=== PATIENT | male | born 1950 | race Caucasian/White ===

== ENCOUNTER → 2017-09-06 15:20 | Outpatient (CLI) | payer MEDICARE, SELFPAY ==
--- NOTE | 2017-09-06 15:23 | XR_ITS ---
XR chest 2V Ordering Physician: Manav Jett MD Patient Age: 66 years: Male HISTORY: ITS.REASON: CHEST PAIN TECHNIQUE: PA and lateral chest pain COMPARISON :Previous 2 view chest 09/05/2012 FINDINGS No significant interval change. Lungs clear with no active disease. No pneumothorax. No pleural effusion. Subtle small nodular densities project over left 6TH anterior rib and most likely nipple shadow is been seen before Mild cardiomegaly left ventricular configuration . Normal pulmonary vascularity. Previous sternotomy and CABG IMPRESSION: Stable chest nothing definitely acute Lungs clear Sternotomy, CABG. Borderline/mild cardiomegaly
== END ==
PROVIDERS: PCP Internal Medicine Adolescent Medicine; Visit Provider Internal Medicine
DX: I10 Essential (primary) hypertension (principal); Z95.1 Presence of aortocoronary bypass graft; Z87.891 Personal history of nicotine dependence; E78.5 Hyperlipidemia, unspecified; R06.00 Dyspnea, unspecified; I27.20 Pulmonary hypertension, unspecified; I25.10 Atherosclerotic heart disease of native coronary artery without angina pectoris; E11.9 Type 2 diabetes mellitus without complications; G47.33 Obstructive sleep apnea (adult) (pediatric)
CPT/HCPCS: 71046

== ENCOUNTER → 2017-09-09 07:05 | Outpatient (CLI) | payer MEDICARE, SELFPAY ==
[2017-09-09 08:13] LABS: Anion Gap 11.8 mEq/L (5-15); Blood Urea Nitrogen 15 mg/dL (7-18); Carbon Dioxide 29 mmol/L (21.0-32.0); Chloride 101 mmol/L (98-107); Creatinine,Serum 1.16 mg/dL (0.70-1.30); Estimated Glomerular Filt Rate 63 ml/min (>60); GFR (African American) 76 ML/MIN (>60); Potassium 3.8 mmoL/L (3.5-5.1); Sodium 138 mmol/L (136-145)
[2017-09-09 08:27] LABS: Glucose 173 mg/dL (74-106)
[2017-09-09 08:29] LABS: Chol/HDL Ratio 3.5 (1-3.5); Cholesterol 174 mg/dL (140-200); HDL Cholesterol 50 mg/dL (27-67); LDL Cholesterol 109 mg/dL (0-130); Triglycerides 74 mg/dL (30-200); VLDL Cholesterol 15 mg/dL (0-40)
[2017-09-09 09:02] LABS: Hemoglobin A1C 7.4 % (0.0-7.0)
== END ==
PROVIDERS: Family Provider Internal Medicine Adolescent Medicine; PCP Internal Medicine Adolescent Medicine; Visit Provider Internal Medicine Cardiovascular Disease
DX: I27.20 Pulmonary hypertension, unspecified (principal); Z87.891 Personal history of nicotine dependence; Z95.1 Presence of aortocoronary bypass graft; I25.810 Atherosclerosis of coronary artery bypass graft(s) without angina pectoris; I10 Essential (primary) hypertension; R06.02 Shortness of breath; R06.00 Dyspnea, unspecified; R06.01 Orthopnea; E78.4 Other hyperlipidemia; G47.33 Obstructive sleep apnea (adult) (pediatric); E11.9 Type 2 diabetes mellitus without complications
CPT/HCPCS: 36415; 80048; 80061; 83036; 83880

== ENCOUNTER → 2017-09-20 13:29 | Outpatient (CLI) | payer MEDICARE, SELFPAY ==
--- NOTE | 2017-09-20 13:30 | CT_ITS ---
CT chest wo con HISTORY: Chest pain, shortness of breath, coronary artery disease ITS.REASON: dyspnea ORDERING PHYSICIAN: Manav Jett MD PATIENT AGE: 66 years Technique: Axial images obtained. Sagittal and coronal reformatted images are also generated and reviewed. All CT scans at the facility use one or more dose reduction, viz: automated exposure control; ma/kV adjustment per patient size (including targeted exams where dose is matched to indication; i.e. head); or iterative reconstruction technique. CONTRAST: None COMPARISON: None FINDINGS: There has been a prior median sternotomy with CABG. The heart size is normal. No evidence of pericardial effusion. No evidence of aortic aneurysm. Normal sized pulmonary arteries. Coronary artery calcifications are present. No mediastinal or hilar mass. There are scattered small nodes within the axilla and mediastinum not. There are mild atelectatic or fibrotic changes in the left upper lobe and lingula. No suspicious pulmonary nodules. No lobar consolidation or collapse. No effusions. Upper abdominal images show fatty liver infiltration. There are scattered punctate calcifications of the pancreas consistent with chronic pancreatitis. No acute bony abnormalities. IMPRESSION: 1. Prior CABG with coronary artery disease. 2. Mild atelectatic or fibrotic changes in the left upper lobe and lingula. 3. Chronic pancreatitis with fatty liver
--- NOTE | 2017-09-20 13:42 | CA_ITS ---
PROCEDURE: 2-D M-mode and color Doppler study INDICATIONS FOR THE TEST: Chest pain + COPD Heart Murmur Tobacco Smoking Palpitations Fatigue Syncope Edema Hypertension+Diabetes Mellitus+ Rheumatic Fever SOB+PRO+Obesity Hyperlipidemia+ Family History HD Additional History CAD, ABN EKG, LEXUS, CABG PATIENT INFORMATION HEIGHT: 69 WEIGHT:226 GENDER: Male B/P:142/78 2-D/M-MODE INTERPRETATION: 2-D MEASUREMENTS OBSERVED VALUES IN CMS Right Ventricular Dimension (RVDd) 3.2 Interventricular Septum (Thickness)(IVsd) 1.5 Left Ventricular Internal Dimensions(LVIDd) 5.7 Left Ventricular Posterior Wall (Thickness)(LVPWd) 0.9 Aortic Root 3.4 Aortic Cusp Separation 1.7 Left Atrial Dimensions (LAD) 5.3 2D 1. Left atrium is moderately enlarged, left ventricle is normal size, visually estimated ejection fraction 55% with no obvious regional wall motion abnormality. 2. The right atrium and right ventricle are normal size and contractility 3. The aortic valve is minimally thickened and fibrosed. 4. The mitral and tricuspid valve leaflets are minimally thickened. 5. The pulmonic valve is poorly visualized. 6. No significant pericardial effusion noted. DOPPLER INTERROGATION: Doppler interrogation of the aortic, mitral and tricuspid valvular presence of mild mitral and tricuspid regurgitation, tricuspid regurgitant jet velocity is insufficient for calculation of the right ventricular systolic pressure, grade 1 diastolic dysfunction seen with tissue Doppler evidence of raised left atrial pressure. CONCLUSION: 1. Moderately enlarged left atrium, normal left ventricular size, mild concentric left ventricular hypertrophy, visually estimated ejection fraction 55% with no obvious regional wall motion abnormality. Grade 1 diastolic dysfunction seen with tissue Doppler evidence of raised left atrial pressure. 2. Mild mitral and tricuspid addition 3. No significant pericardial effusion noted.
== END ==
PROVIDERS: Family Provider Internal Medicine Adolescent Medicine; PCP Internal Medicine Adolescent Medicine; Visit Provider Internal Medicine
DX: G47.33 Obstructive sleep apnea (adult) (pediatric) (principal); I27.20 Pulmonary hypertension, unspecified; Z87.891 Personal history of nicotine dependence; Z95.1 Presence of aortocoronary bypass graft; I25.810 Atherosclerosis of coronary artery bypass graft(s) without angina pectoris; I10 Essential (primary) hypertension; E78.4 Other hyperlipidemia; R06.02 Shortness of breath; R06.00 Dyspnea, unspecified; R06.01 Orthopnea; E11.9 Type 2 diabetes mellitus without complications
CPT/HCPCS: 71250; 93306

== ENCOUNTER → 2017-10-06 05:55 | Outpatient (CLI) | payer MEDICARE, SELFPAY ==
--- NOTE | 2017-10-06 05:57 | NM_ITS ---
SPECT MYOCARDIAL PERFUSION SCAN, REST AND STRESS: EXERCISE STRESS: [facility] REVIEW QGS EF AND WALL MOTION EVALUATION: QPS - PERFUSION EVALUATION: HISTORY: SOB PROCEDURE: Rest imaging performed after administration of 10.17 millicuries Tc MIBI. Dose administered at6:10 a.m., with imaging thereafter. Stress imaging was then performed following8 minutes 30 seconds of exercise stress. The patient achieved a heart [id number] with projected heart rate of131 . Resting BP161/89 with stress 180/92. At maximum exercise stress,30.2 millicuries Tc MIBI administered at7:50 a.m. with [id number] minutes thereafter. FINDINGS: Perfusion Evaluation: The single slice spect images as well as the [facility] bull's-eye data summary were reviewed. Wall Motion and Ejection Fraction Evaluation: Gated SPECT review and analysis used to evaluate these features. There is a 56 % left ventricular ejection fraction. There seems to be good wall motion Stress images reveal decreased activity in the mid anterior apical wall while rest images were normal ejection fraction. Gated images calculated ejection fraction of 56% with normal wall motion IMPRESSION: Reversible ischemia in the mid anterior apical wall. Normal ejection fraction normal wall motion.
[2017-10-06 06:21] LABS: Anion Gap 11.2 mEq/L (5-15); Blood Urea Nitrogen 18 mg/dL (7-18); Carbon Dioxide 31 mmol/L (21.0-32.0); Chloride 99 mmol/L (98-107); Creatinine,Serum 1.14 mg/dL (0.70-1.30); Estimated Glomerular Filt Rate 64 ml/min (>60); GFR (African American) 78 ML/MIN (>60); Glucose 155 mg/dL (74-106); Potassium 4.2 mmoL/L (3.5-5.1); Sodium 137 mmol/L (136-145)
--- NOTE | 2017-10-06 06:44 | HMH.ITSHM ---
METFORMIN LISINOPRIL CARVEDILOL FENOFIBRATE SILDENAFIL ASA PRILOSEC
== END ==
PROVIDERS: Internal Medicine Cardiovascular Disease; Family Provider Internal Medicine Adolescent Medicine; PCP Internal Medicine Adolescent Medicine; Visit Provider Internal Medicine
DX: G47.33 Obstructive sleep apnea (adult) (pediatric) (principal); E11.9 Type 2 diabetes mellitus without complications; I25.10 Atherosclerotic heart disease of native coronary artery without angina pectoris; I27.20 Pulmonary hypertension, unspecified; R06.00 Dyspnea, unspecified; E78.5 Hyperlipidemia, unspecified; Z87.891 Personal history of nicotine dependence; I10 Essential (primary) hypertension; Z95.1 Presence of aortocoronary bypass graft
CPT/HCPCS: 78452; 80048; 93017; A9502

== ENCOUNTER → 2017-10-19 07:40 | Outpatient (CLI) | payer MEDICARE, SELFPAY ==
[2017-10-19 09:34] LABS: Anion Gap 13.9 mEq/L (5-15); Blood Urea Nitrogen 18 mg/dL (7-18); Carbon Dioxide 30 mmol/L (21.0-32.0); Chloride 90 mmol/L (98-107); Creatinine,Serum 1.16 mg/dL (0.70-1.30); Estimated Glomerular Filt Rate 63 ml/min (>60); GFR (African American) 76 ML/MIN (>60); Sodium 130 mmol/L (136-145)
[2017-10-19 10:07] LABS: Glucose 240 mg/dL (74-106)
[2017-10-19 10:08] LABS: Potassium 3.9 mmoL/L (3.5-5.1)
== END ==
PROVIDERS: Urology; PCP Internal Medicine Adolescent Medicine; Visit Provider Internal Medicine Cardiovascular Disease
DX: E78.5 Hyperlipidemia, unspecified (principal); E11.9 Type 2 diabetes mellitus without complications; I10 Essential (primary) hypertension; I25.10 Atherosclerotic heart disease of native coronary artery without angina pectoris; I27.20 Pulmonary hypertension, unspecified; R06.00 Dyspnea, unspecified
CPT/HCPCS: 36415; 80048

== ENCOUNTER → 2017-10-29 07:06 | Outpatient (CLI) | payer MEDICARE, SELFPAY ==
[2017-10-29 09:52] LABS: Anion Gap 17.1 mEq/L (5-15); Blood Urea Nitrogen 19 mg/dL (7-18); Carbon Dioxide 24 mmol/L (21.0-32.0); Chloride 103 mmol/L (98-107); Estimated Glomerular Filt Rate 61 ml/min (>60); GFR (African American) 73 ML/MIN (>60); Potassium 4.1 mmoL/L (3.5-5.1); Sodium 140 mmol/L (136-145)
[2017-10-29 10:12] LABS: Glucose 196 mg/dL (74-106)
== END ==
PROVIDERS: Visit Provider Internal Medicine Cardiovascular Disease
DX: R06.09 Other forms of dyspnea (principal); I50.32 Chronic diastolic (congestive) heart failure
CPT/HCPCS: 36415; 80048; 83880

== ENCOUNTER → 2017-11-23 07:07 | Outpatient (CLI) | payer MEDICARE, SELFPAY ==
[2017-11-23 10:45] LABS: Anion Gap 14.3 mEq/L (5-15); Blood Urea Nitrogen 23 mg/dL (7-18); Carbon Dioxide 29 mmol/L (21.0-32.0); Chloride 100 mmol/L (98-107); Creatinine,Serum 1.29 mg/dL (0.70-1.30); Estimated Glomerular Filt Rate 56 ml/min (>60); GFR (African American) 67 ML/MIN (>60); Glucose 296 mg/dL (74-106); Potassium 4.3 mmoL/L (3.5-5.1); Sodium 139 mmol/L (136-145)
== END ==
PROVIDERS: Family Provider Internal Medicine Adolescent Medicine; PCP Internal Medicine Adolescent Medicine; Visit Provider Internal Medicine Cardiovascular Disease
DX: R06.09 Other forms of dyspnea (principal); I27.20 Pulmonary hypertension, unspecified; I25.810 Atherosclerosis of coronary artery bypass graft(s) without angina pectoris; I10 Essential (primary) hypertension; E78.4 Other hyperlipidemia
CPT/HCPCS: 36415; 80048; 83880

== ENCOUNTER → 2017-12-03 07:09 | Outpatient (CLI) | payer MEDICARE, SELFPAY ==
[2017-12-03 10:10] LABS: Anion Gap 14.5 mEq/L (5-15); Blood Urea Nitrogen 26 mg/dL (7-18); Calcium 9.9 mg/dL (8.5-10.1); Carbon Dioxide 30 mmol/L (21.0-32.0); Chloride 101 mmol/L (98-107); Creatinine,Serum 1.41 mg/dL (0.70-1.30); Estimated Glomerular Filt Rate 50 ml/min (>60); GFR (African American) 61 ML/MIN (>60); Potassium 4.5 mmoL/L (3.5-5.1); Sodium 141 mmol/L (136-145)
[2017-12-03 10:33] LABS: Glucose 287 mg/dL (74-106)
== END ==
PROVIDERS: Family Provider Internal Medicine Adolescent Medicine; PCP Internal Medicine Adolescent Medicine; Visit Provider Urology
DX: R06.09 Other forms of dyspnea (principal); I27.20 Pulmonary hypertension, unspecified; I25.810 Atherosclerosis of coronary artery bypass graft(s) without angina pectoris; I10 Essential (primary) hypertension; E78.4 Other hyperlipidemia
CPT/HCPCS: 36415; 80048; 83880

== ENCOUNTER → 2017-12-16 07:04 | Outpatient (CLI) | payer MEDICARE, SELFPAY ==
[2017-12-16 08:27] LABS: Anion Gap 12.5 mEq/L (5-15); Blood Urea Nitrogen 20 mg/dL (7-18); Calcium 9.7 mg/dL (8.5-10.1); Carbon Dioxide 29 mmol/L (21.0-32.0); Chloride 98 mmol/L (98-107); Creatinine,Serum 1.16 mg/dL (0.70-1.30); Estimated Glomerular Filt Rate 63 ml/min (>60); GFR (African American) 76 ML/MIN (>60); Potassium 4.5 mmoL/L (3.5-5.1); Sodium 135 mmol/L (136-145)
[2017-12-16 08:56] LABS: Glucose 357 mg/dL (74-106)
[2017-12-16 09:13] LABS: Hemoglobin A1C 9.8 % (0.0-7.0)
[2017-12-17 20:07] LABS: Microalbumin, Urine 9.7 ug/mL (Not Estab.)
== END ==
PROVIDERS: Nurse Practitioner Family; Visit Provider Internal Medicine Cardiovascular Disease
DX: I25.10 Atherosclerotic heart disease of native coronary artery without angina pectoris (principal); I10 Essential (primary) hypertension; I50.9 Heart failure, unspecified; E78.5 Hyperlipidemia, unspecified; E11.9 Type 2 diabetes mellitus without complications
CPT/HCPCS: 36415; 80048; 82043; 83036; 83880

== ENCOUNTER 2018-04-14 16:00 | Outpatient (RCR) | payer MEDICARE, SELFPAY ==
--- NOTE | 2018-04-07 16:14 | HMH.PTOPEV ---
PT Outpatient Evaluation Rehab PT Outpatient Evaluation Start: 04/07/18 15:49 Freq: Status: Active Protocol: Document 04/07/18 15:49 LESVIARODOLFO (Rec: 04/07/18 16:14 LESVIARODOLFO [id number]) Electronically Signed By Skip Watters, PT 04/07/18 15:49 Outpatient Therapy Subjective History Subjective History This is the initial Physical Therapy evaluation for Arnold Mann. Pt is a 67 y/o male referred to PT for c/o BLE and SIJ intermittant pain. PT reports pain for a while but increased over last few months . Pt reports no trauma or causative factor. Pt reports pain mostly in post SIJ, but does reprot c/o paresthesia in BLE during motorcycle rides and prolonged sitting causes severe stiffness w/ rising. Chief Complaint Pain Stiff Paresthesia Symptom Type Ache Throb Sharp Dull Numbness Symptoms Relieved By Rest/Positioning OTC Meds Activity Symptoms Aggravated By Sitting Prior Functional Limitations None Current Functional Limitations Sitting Recreation Activity Symptom Description Intermittent Level of pain today (0-10) 0 Pain scale - at its best (0-10) 0 Pain scale - at its worst (0-10) 7 Lumbopelvic Eval Posture Thoracic Spine Posture Standing Position Neutral Lumbar Spine Posture Standing Position Flattened Assistive device Assistive Devices None / NA Gait Observation General Gait Pattern Observation No Deviations/Normal Palapation tenderness bilateral Lumbar/Sacral Palpation Findings Tenderness Lumbar/Sacral Palpation Overall Comment TTP at B PSIS and SIJ ligaments Range of Motion Lumbar Spine ROM Reason Not Measured Within Functional Limits Manual Muscle Test Bilateral Knee Extension Strength Grade 5 Normal Knee Flexion Strength Grade 5 Normal DTR Rt Patellar 1+ Lt Patellar 1+ Special Tests Lumbar Spine Screen Negative Sacroiliac Joint Compression Test Positive Left Positive Right Sacroiliac Joint Distraction Test Positive Left Positive Right Lumbar [place]
== END 2018-04-14 16:01 | disposition home or self-care (01) ==
LOC: PT 16:00
PROVIDERS: Family Provider Internal Medicine Adolescent Medicine; PCP Internal Medicine Adolescent Medicine; Visit Provider Nurse Practitioner Family
DX: M25.552 Pain in left hip (principal); M25.551 Pain in right hip
CPT/HCPCS: 97110; 97163

== ENCOUNTER → 2018-05-05 14:59 | Outpatient (CLI) | payer MEDICARE, SELFPAY ==
--- NOTE | 2018-05-05 15:05 | XR_ITS ---
XR hip LT 2-3V w/pelvis HISTORY: Left hip pain ITS.REASON: BILAT HIP AND LOW BACK PAIN ORDERING PHYSICIAN: Tawana Ramos PATIENT AGE: 67 years COMPARISON: None FINDINGS: No fracture or dislocation is evident. No significant degenerative change. No lytic or blastic change. Unremarkable soft tissues IMPRESSION: Negative hip
--- NOTE | 2018-05-05 15:05 | XR_ITS ---
XR hip RT 2-3V w/pelvis HISTORY: ITS.REASON: BILAT HIP AND LOW BACK PAIN ORDERING PHYSICIAN: Tawana Ramos PATIENT AGE: 67 years COMPARISON: None FINDINGS: No fracture or dislocation is evident. No significant degenerative change. No lytic or blastic change. Unremarkable soft tissues IMPRESSION: Negative hip
--- NOTE | 2018-05-05 15:05 | XR_ITS ---
XR sacroiliac joint BI min 3V CLINICAL INDICATION: ITS.REASON: BILAT HIP AND LOW BACK PAIN ORDERING PHYSICIAN: Tawana Ramos PATIENT AGE: 67 years Comparison: None FINDINGS: There are minimal osteoarthritic changes of the right SI joint inferiorly. No fracture or dislocation. No sclerosis or lysis. There are prominent hypertrophic changes at the L5-S1 facets right greater than left. This may be better evaluated with CT. IMPRESSION: 1. 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 2. Hypertrophic changes of the lumbosacral junction
== END ==
PROVIDERS: PCP Nurse Practitioner Family; Visit Provider Nurse Practitioner Family
DX: M25.552 Pain in left hip (principal); M54.5 Low back pain; M25.551 Pain in right hip
CPT/HCPCS: 72202; 73502

== ENCOUNTER → 2018-05-23 13:56 | Outpatient (POV) | payer MEDICARE, SELFPAY ==
[2018-05-23 14:14] VITALS: BP 138/86; PULSE 68; RESP 18; O2SAT 98
--- NOTE | 2018-05-23 15:02 | HMH.PMCON ---
Assessment and Plan (1) Sacroiliitis Current visit: Yes Status: Chronic Category: Medical Code(s): M46.1 - Sacroiliitis, not elsewhere classified - Assessment and plan all Dx Assessment and Plan for all problems:: We will schedule bilateral SI joint injections for the patient I do believe it would be beneficial for him. Patient has tried and failed physical therapy, anti-inflammatories for over 6 weeks. I will follow-up with the patient after his injections. This note was dictated using voice recognition software and may contain errors or omissions HPI - Data of Consult Consult date: 05/23/18 Requesting Physician: Elo Vee APRN Primary Care Provider: Santino Carrillo MD - Consult Narrative Reason for consult: SI joint pain History of present illness: Mr. Mann is a 67 year old male who presents today for consultation in regards to his bilateral SI joint pain. Patient has had back surgery back in 1997. Patient has recently been seen by his primary care physician. Patient has pain over his bilateral SI joints radiating into his buttock at times. Patient rates his pain a 5 out of 10. Patient has tried ibuprofen and Tylenol however it is not beneficial. Patient has tried bracing with some moderate relief. Patient's tried and failed chiropractic therapy and continues in physical therapy with moderate relief. Patient states that work and standing for long periods of time make his pain worse while resting decreases his pain. CC: Elo Vee APRN [facility] History I have reviewed the patient's past medical history: Yes Medical History: Reports:: Coronary Artery Disease, Diabetes Mellitus Type 2, Hyperlipidemia, Hypertension Denies:: Cancer, Diabetes Mellitus Type 1, Internal Pacemaker, MRSA, Seizures Laterality Cases: Bilateral: Arthroscopy Shoulder Other Surgeries: Yes: CABG, Cardiac Catheterization, Other. No: Pacemaker Amputation: No Fractures: No - *Social History Smoking Status: Never smoker Tobacco Type: cigarettes Alcohol Intake: current Alcohol Intake Frequency:: a few times a week Substance Use Type: denies use Occupational Status: retired Housing: house Household Members: spouse - Psychiatric History Expresses thoughts of harming self/others: None Suicide Plan Description: No Plan *Family Hx:: Coronary Artery Disease, Hypertension, Hyperlipidemia, Heart Attack Review of Systems - Review of Systems ROS General: no recent weight change, no fever, no sleep disturbances Respiratory: no cough, no shortness of air, no recurring pulmonary infections Cardiovascular/Peripheral Vascular: No chest pain, No palpitations, no edema, no shortness of breath. Gastrointestinal: no incontinence, normal bowel movements reported Genitourinary: no incontinence Musculoskeletal: Back pain, SI joint pain bilaterally Psychiatric: normal mood/ affect Neurological: [denies weakness in extremities], [denies balance issues] Meds Home Medications Medication Instructions Recorded Confirmed Type aspirin 81 mg tablet,delayed 81 mg PO DAILY tab 09/01/17 04/07/18 History release fenofibrate nanocrystallized 145 145 mg PO DAILY tab 09/01/17 04/07/18 History mg tablet metformin 500 mg tablet 1,000 mg PO BID tab 09/01/17 04/07/18 History omeprazole magnesium 20 mg 20 mg PO DAILY tab 09/01/17 04/07/18 History tablet,delayed release loratadine 10 mg tablet 10 mg PO DAILY tab 09/02/17 04/07/18 History furosemide 40 mg tablet 60 mg PO DAILY tab 01/06/18 History semaglutide 0.25 mg or 0.5 mg (2 0.25 mg SQ QWEEK 04/07/18 04/07/18 History mg/1.5 mL) subcutaneous pen injector Allergies Allergy/AdvReac Type Severity Reaction Status Date / Time Dlujbqs-Fqm-Fij Reductase Allergy Mild HURTS LIVER Unverified 11/05/17 09:42 Inhibitor [[id number] REDUCTASE INHIBITOR] Objective Vital signs: Pulse Resp BP Pulse Ox 68 18 138/86 98 11
--- NOTE | 2018-05-23 15:05 | P.CONS_ITS ---
Assessment and Plan (1) Sacroiliitis Current visit: Yes Status: Chronic Category: Medical Code(s): M46.1 - Sacroiliitis, not elsewhere classified - Assessment and plan all Dx Assessment and Plan for all problems:: We will schedule bilateral SI joint injections for the patient I do believe it would be beneficial for him. Patient has tried and failed physical therapy, anti-inflammatories for over 6 weeks. I will follow-up with the patient after his injections. This note was dictated using voice recognition software and may contain errors or omissions HPI - Data of Consult Consult date: 05/23/18 Requesting Physician: Elo Vee APRN Primary Care Provider: Santino Carrillo MD - Consult Narrative Reason for consult: SI joint pain History of present illness: Mr. Mann is a 67 year old male who presents today for consultation in regards to his bilateral SI joint pain. Patient has had back surgery back in 1997. Patient has recently been seen by his primary care physician. Patient has pain over his bilateral SI joints radiating into his buttock at times. Patient rates his pain a 5 out of 10. Patient has tried ibuprofen and Tylenol however it is not beneficial. Patient has tried bracing with some moderate relief. Patient's tried and failed chiropractic therapy and continues in physical therapy with moderate relief. Patient states that work and standing for long periods of time make his pain worse while resting decreases his pain. CC: Elo Vee APRN [facility] History I have reviewed the patient's past medical history: Yes Medical History: Reports:: Coronary Artery Disease, Diabetes Mellitus Type 2, Hyperlipidemia, Hypertension Denies:: Cancer, Diabetes Mellitus Type 1, Internal Pacemaker, MRSA, Seizures Laterality Cases: Bilateral: Arthroscopy Shoulder Other Surgeries: Yes: CABG, Cardiac Catheterization, Other. No: Pacemaker Amputation: No Fractures: No - *Social History Smoking Status: Never smoker Tobacco Type: cigarettes Alcohol Intake: current Alcohol Intake Frequency:: a few times a week Substance Use Type: denies use Occupational Status: retired Housing: house Household Members: spouse - Psychiatric History Expresses thoughts of harming self/others: None Suicide Plan Description: No Plan *Family Hx:: Coronary Artery Disease, Hypertension, Hyperlipidemia, Heart Attack Review of Systems - Review of Systems ROS General: no recent weight change, no fever, no sleep disturbances Respiratory: no cough, no shortness of air, no recurring pulmonary infections Cardiovascular/Peripheral Vascular: No chest pain, No palpitations, no edema, no shortness of breath. Gastrointestinal: no incontinence, normal bowel movements reported Genitourinary: no incontinence Musculoskeletal: Back pain, SI joint pain bilaterally Psychiatric: normal mood/ affect Neurological: [denies weakness in extremities], [denies balance issues] Meds Home Medications Medication Instructions Recorded Confirmed Type aspirin 81 mg tablet,delayed 81 mg PO DAILY tab 09/01/17 04/07/18 History release fenofibrate nanocrystallized 145 145 mg PO DAILY tab 09/01/17 04/07/18 History mg tablet metformin 500 mg tablet 1,000 mg PO BID tab 09/01/17 04/07/18 History omeprazole magnesium 20 mg 20 mg PO DAILY tab 09/01/17 04/07/18 History tablet,delayed release loratadine 10 mg tablet 10 mg PO DAILY tab 09/02/1703/28
== END ==
PROVIDERS: PCP Internal Medicine Adolescent Medicine; Visit Provider Clinical Nurse Specialist Family Health
DX: M46.1 Sacroiliitis, not elsewhere classified (principal)
CPT/HCPCS: 99202

== ENCOUNTER → 2018-07-04 14:40 | Outpatient (POV) | payer MEDICARE, SELFPAY ==
[2018-07-04 14:50] VITALS: BP 135/81; PULSE 61; RESP 18; O2SAT 99; BMI 31.0
--- NOTE | 2018-07-04 14:51 | P.CONS_ITS ---
[facility] Pain Management SOAP Note Subjective:: Patient is a pleasant 67-year-old white male who presents today for follow-up after bilateral SI joint injections. Patient is doing extremely well. Patient rates his pain a 2 out of 10. Patient would like to follow-up on an as-needed basis. ROS General: no recent weight change, no fever, no sleep disturbances Respiratory: no cough, no shortness of air, no recurring pulmonary infections Cardiovascular/Peripheral Vascular: No chest pain, No palpitations, no edema, no shortness of breath. Gastrointestinal: no incontinence, normal bowel movements reported Genitourinary: no incontinence Musculoskeletal: SI joint pain Psychiatric: normal mood/ affect Neurological: [denies weakness in extremities], [denies balance issues] Objective:: Physical Exam General: Alert and oriented x3, no acute distress, pleasant and cooperative, [on room air] Lungs: Resps E/U, Symmetrical chest expansion, Eyes: PERRL Musculoskeletal: Flexion and extension of lumbar spine somewhat guarded secondary to pain, deep tendon reflexes normal, strength in upper and lower extremities [5/5], antalgic gait noted, positive Anita's test bilaterally Neurological: speech clear, systems checkout mechanic equal, no gross sensory deficits Assessment:: Sacroiliitis Plan:: We will follow-up with the patient on an as-needed basis he is been instructed to call the office if his pain begins to return. This note was dictated using voice recognition software and may contain errors or omissions
== END ==
PROVIDERS: PCP Internal Medicine Adolescent Medicine; Visit Provider Clinical Nurse Specialist Family Health
DX: M46.1 Sacroiliitis, not elsewhere classified (principal)
CPT/HCPCS: 99213

== ENCOUNTER → 2018-08-09 09:58 | Outpatient (POV) | payer MEDICARE, SELFPAY ==
[2018-08-09 10:57] VITALS: BP 121/81; PULSE 72; RESP 18; O2SAT 98; BMI 31.0
--- NOTE | 2018-08-09 11:08 | HMH.PAINSOAP ---
[facility] Pain Management SOAP Note Subjective:: She is a pleasant 67-year-old white male who presents today for follow-up. Patient had bilateral SI joint injection and was doing extremely well until recently. Patient had a stress test which aggravated his symptoms. He is having low back pain radiating all the way into his foot of his right leg. He has numbness and tingling at this area as well. He rates his pain at 8 out of 10. He is on anti-inflammatories and continues daily stretching. ROS General: no recent weight change, no fever, no sleep disturbances Respiratory: no cough, no shortness of air, no recurring pulmonary infections Cardiovascular/Peripheral Vascular: No chest pain, No palpitations, no edema, no shortness of breath. Gastrointestinal: no incontinence, normal bowel movements reported Genitourinary: no incontinence Musculoskeletal: Back pain, leg pain Psychiatric: normal mood/ affect Neurological: [denies weakness in extremities], [denies balance issues] Objective:: Physical Exam General: Alert and oriented x3, no acute distress, pleasant and cooperative, [on room air] Lungs: Resps E/U, Symmetrical chest expansion, Eyes: PERRL Musculoskeletal: Flexion and extension of lumbar spine somewhat guarded secondary to pain, deep tendon reflexes normal, strength in upper and lower extremities [5/5], slightly antalgic gait noted, positive straight leg raise test on the right side at 30 degrees Neurological: speech clear, lamination assembler equal, no gross sensory deficits Assessment:: Degenerative disc disease lumbar spine with lumbar radiculopathy, postlaminectomy syndrome, sacroiliitis Plan:: We will schedule an L4-L5 lumbar epidural steroid injection for the patient. I do believe it would be beneficial for him. Patient's not on any blood thinners. He is not on any antibiotics and does not have any open wounds. I will follow-up with him after his injection. Dr. Carranza has reviewed this note and agrees with this plan of care. This note was dictated using voice recognition software and may contain errors or omissions
--- NOTE | 2018-08-09 11:14 | P.CONS_ITS ---
[facility] Pain Management SOAP Note Subjective:: She is a pleasant 67-year-old white male who presents today for follow-up. Patient had bilateral SI joint injection and was doing extremely well until recently. Patient had a stress test which aggravated his symptoms. He is having low back pain radiating all the way into his foot of his right leg. He has numbness and tingling at this area as well. He rates his pain at 8 out of 10. He is on anti-inflammatories and continues daily stretching. ROS General: no recent weight change, no fever, no sleep disturbances Respiratory: no cough, no shortness of air, no recurring pulmonary infections Cardiovascular/Peripheral Vascular: No chest pain, No palpitations, no edema, no shortness of breath. Gastrointestinal: no incontinence, normal bowel movements reported Genitourinary: no incontinence Musculoskeletal: Back pain, leg pain Psychiatric: normal mood/ affect Neurological: [denies weakness in extremities], [denies balance issues] Objective:: Physical Exam General: Alert and oriented x3, no acute distress, pleasant and cooperative, [on room air] Lungs: Resps E/U, Symmetrical chest expansion, Eyes: PERRL Musculoskeletal: Flexion and extension of lumbar spine somewhat guarded secondary to pain, deep tendon reflexes normal, strength in upper and lower extremities [5/5], slightly antalgic gait noted, positive straight leg raise test on the right side at 30 degrees Neurological: speech clear, central processing tech equal, no gross sensory deficits Assessment:: Degenerative disc disease lumbar spine with lumbar radiculopathy, postlaminectomy syndrome, sacroiliitis Plan:: We will schedule an L4-L5 lumbar epidural steroid injection for the patient. I do believe it would be beneficial for him. Patient's not on any blood thinners. He is not on any antibiotics and does not have any open wounds. I will follow-up with him after his injection. Dr. Carranza has reviewed this note and agrees with this plan of care. This note was dictated using voice recognition software and may contain errors or omissions
== END ==
PROVIDERS: PCP Internal Medicine Adolescent Medicine; Visit Provider Clinical Nurse Specialist Family Health
DX: M51.16 Intervertebral disc disorders with radiculopathy, lumbar region (principal); M96.1 Postlaminectomy syndrome, not elsewhere classified; M46.1 Sacroiliitis, not elsewhere classified
CPT/HCPCS: 99213

== ENCOUNTER → 2018-09-19 15:38 | Outpatient (POV) | payer MEDICARE, SELFPAY ==
[2018-09-19 15:50] VITALS: BP 127/72; PULSE 54; RESP 18; O2SAT 98; BMI 31.3
--- NOTE | 2018-09-20 08:03 | P.CONS_ITS ---
[facility] Pain Management SOAP Note Subjective:: Patient is a very pleasant 67-year-old white male who we are treating for low back pain with lumbar radiculopathy. Patient is doing well after his injection stating he got up to 90% relief of his symptoms. Patient states he is having some residual numbness after the injection. Patient would like to repeat the injection to see if he can get more relief at this point. I believe it would be a good idea. He is continuing home stretching along with anti-inflammatories. Patient has had good relief with injections in the past up to 80-90% for several months. ROS General: no recent weight change, no fever, no sleep disturbances Respiratory: no cough, no shortness of air, no recurring pulmonary infections Cardiovascular/Peripheral Vascular: No chest pain, No palpitations, no edema, no shortness of breath. Gastrointestinal: no incontinence, normal bowel movements reported Genitourinary: no incontinence Musculoskeletal: Back pain, leg pain at times Psychiatric: normal mood/ affect, Neurological: [denies weakness in extremities], [denies balance issues] numbness bilateral legs Objective:: Physical Exam General: Alert and oriented x3, no acute distress, pleasant and cooperative, [on room air] Lungs: Resps E/U, Symmetrical chest expansion, Eyes: PERRL Musculoskeletal: Flexion and extension of lumbar spine somewhat guarded secondary to pain, deep tendon reflexes normal, strength in upper and lower extremities [5/5], antalgic gait noted Neurological: speech clear, apparel trimmings sales representative equal, no gross sensory deficits Assessment:: Degenerative disc disease lumbar spine with lumbar radiculopathy Plan:: We will set up a repeat L4-L5 epidural steroid injection for the patient given the efficacy of the last 20 believe it would be beneficial. He is not on any anticoagulation therapy. I will follow-up with the patient after his injection and reassess his symptoms at that time. Dr. Carranza has reviewed this note and agrees with this plan of care. This note was dictated using voice recognition software and may contain errors or omissions
== END ==
PROVIDERS: PCP Internal Medicine Adolescent Medicine; Visit Provider Clinical Nurse Specialist Family Health
DX: M51.16 Intervertebral disc disorders with radiculopathy, lumbar region (principal)
CPT/HCPCS: 99213

== ENCOUNTER → 2018-10-24 13:23 | Outpatient (POV) | payer MEDICARE, SELFPAY ==
[2018-10-24 13:49] VITALS: BP 118/78; PULSE 60; RESP 18; O2SAT 98; BMI 31.7
--- NOTE | 2018-10-25 17:00 | HMH.PAINSOAP ---
[facility] Pain Management SOAP Note Subjective:: Is a very pleasant 68-year-old white male who presents today for follow-up after the epidural steroid injection he rates pain 1 out of 10 and is doing extremely well he would like to repeat this in a few weeks to help sustain this. Patient much more functional. He gets 90% relief up to 3 months. He is continuing a home stretching program he is currently not on any anti-coagulation therapy. He is on anti-inflammatories. ROS General: no recent weight change, no fever, no sleep disturbances Respiratory: no cough, no shortness of air, no recurring pulmonary infections Cardiovascular/Peripheral Vascular: No chest pain, No palpitations, no edema, no shortness of breath. Gastrointestinal: no incontinence, normal bowel movements reported Genitourinary: no incontinence Musculoskeletal: Back pain, leg pain Psychiatric: normal mood/ affect, Neurological: [denies weakness in extremities], [denies balance issues] Objective:: Physical Exam General: Alert and oriented x3, no acute distress, pleasant and cooperative, [on room air] Lungs: Resps E/U, Symmetrical chest expansion, Eyes: PERRL Musculoskeletal: Flexion and extension of lumbar spine somewhat guarded secondary to pain, deep tendon reflexes normal, strength in upper and lower extremities [5/5], antalgic gait noted Neurological: speech clear, voice writing reporter equal, no gross sensory deficits Assessment:: Degenerative disc disease lumbar spine with lumbar radiculopathy symptoms Plan:: We will schedule the patient for an L4-L5 lumbar epidural steroid injection in 2 months. I will follow-up with the patient after this reassess his symptoms at that time. Patient instructed to call the office if he has any issues prior to his next appointment. Dr. Carranza has reviewed this note and agrees with this plan of care. This note was dictated using voice recognition software and may contain errors or omissions
--- NOTE | 2018-10-25 17:03 | P.CONS_ITS ---
[facility] Pain Management SOAP Note Subjective:: Is a very pleasant 68-year-old white male who presents today for follow-up after the epidural steroid injection he rates pain 1 out of 10 and is doing extremely well he would like to repeat this in a few weeks to help sustain this. Patient much more functional. He gets 90% relief up to 3 months. He is continuing a home stretching program he is currently not on any anti-coagulation therapy. He is on anti-inflammatories. ROS General: no recent weight change, no fever, no sleep disturbances Respiratory: no cough, no shortness of air, no recurring pulmonary infections Cardiovascular/Peripheral Vascular: No chest pain, No palpitations, no edema, no shortness of breath. Gastrointestinal: no incontinence, normal bowel movements reported Genitourinary: no incontinence Musculoskeletal: Back pain, leg pain Psychiatric: normal mood/ affect, Neurological: [denies weakness in extremities], [denies balance issues] Objective:: Physical Exam General: Alert and oriented x3, no acute distress, pleasant and cooperative, [on room air] Lungs: Resps E/U, Symmetrical chest expansion, Eyes: PERRL Musculoskeletal: Flexion and extension of lumbar spine somewhat guarded secondary to pain, deep tendon reflexes normal, strength in upper and lower extremities [5/5], antalgic gait noted Neurological: speech clear, automatic grinding machine operator equal, no gross sensory deficits Assessment:: Degenerative disc disease lumbar spine with lumbar radiculopathy symptoms Plan:: We will schedule the patient for an L4-L5 lumbar epidural steroid injection in 2 months. I will follow-up with the patient after this reassess his symptoms at that time. Patient instructed to call the office if he has any issues prior to his next appointment. Dr. Carranza has reviewed this note and agrees with this plan of care. This note was dictated using voice recognition software and may contain errors or omissions
== END ==
PROVIDERS: PCP Internal Medicine Adolescent Medicine; Visit Provider Clinical Nurse Specialist Family Health
DX: M51.16 Intervertebral disc disorders with radiculopathy, lumbar region (principal)
CPT/HCPCS: 99212

== ENCOUNTER → 2018-12-26 14:11 | Outpatient (POV) | payer MEDICARE, SELFPAY ==
[2018-12-26 14:32] VITALS: BP 144/83; PULSE 64; RESP 18; O2SAT 98; BMI 31.0
--- NOTE | 2018-12-26 15:07 | P.CONS_ITS ---
[facility] Pain Management SOAP Note Subjective:: Patient is a pleasant 68-year-old white male who presents today for follow-up after a lumbar epidural steroid injection L4 and L5. Patient rates his pain an 8 out of 10 today. He says that he had about 20% relief after the injection. He is continuing to have low back pain radiating to his left leg. The patient is continuing physical therapy, along with NSAIDs. The patient says that he has started taking ibuprofen 800 mg, followed by 800 mg more 2 hours after. He says that this has given him some relief. He also states that his primary care provider has instructed him on decreasing his use of NSAIDs. The patient has tried other medication modalities in the past and has failed. He is continuing a home stretching program. Review of Systems General: No recent weight changes, no fever, no sleep disturbances Respiratory: No cough, no shortness of air, no recurring pulmonary infections Cardiovascular/peripheral vascular: No chest pain, no palpitations, no edema, no shortness of breath Gastrointestinal: No new onset incontinence, normal bowel movements reported Genitourinary: No new onset incontinence Musculoskeletal: Back pain, left leg pain Psychiatric: Normal mood/affect Neurological: [Denies weakness in extremities], [denies balance issues] Objective:: Physical exam General: Alert and oriented x3, no acute distress, pleasant and cooperative, [on room air] Lungs: Respirations even and unlabored, symmetrical chest expansion Eyes: PERRL Musculoskeletal: Flexion and extension of lumbar spine somewhat guarded secondary to pain, deep tendon reflexes normal, strength in upper and lower extremities [5/5], [abnormal gait noted] Neurological: Speech clear, ticket worker equal, no gross sensory deficit Assessment:: Degenerative disc disease lumbar spine with lumbar radiculopathy, CRPS type II Plan:: Given the patient's symptoms and no relief from injective therapy, I feel the patient would benefit from a spinal cord stimulator. Did have a thorough discussion concerning the stimulator and he would like to proceed with the psychological evaluation. We will schedule the patient for an evaluation and see him back the office after his evaluation is complete. She is not on any anticoagulation therapy. Been instructed to call the office if he has any concerns prior to his next appointment. Dr. Carranza has reviewed this note and agrees with this plan of care. This note was dictated using voice recognition software and make contain errors or omissions.
== END ==
PROVIDERS: PCP Nurse Practitioner Family; Visit Provider Clinical Nurse Specialist Family Health
DX: M51.16 Intervertebral disc disorders with radiculopathy, lumbar region (principal)
CPT/HCPCS: 99212

== ENCOUNTER → 2019-01-23 14:04 | Outpatient (POV) | payer MEDICARE, SELFPAY ==
[2019-01-23 14:11] VITALS: BP 119/70; PULSE 63; RESP 20; O2SAT 97; BMI 31.0
--- NOTE | 2019-01-23 14:38 | HMH.PAINSOAP ---
[facility] Pain Management SOAP Note Subjective:: Patient is a pleasant 68-year-old white male who presents today for follow-up after psychological evaluation to determine if he is a candidate for a neurostimulator. According to his psychological evaluation he is a good candidate for the therapy. He has had multiple injections with little to no relief. He is continuing to have low back pain radiating to his left legs. He is continuing physical therapy along with NSAIDs. Is also been doing home stretching programs as well. Patient has swelling in his bilateral lower extremities along with color changes. He rates his pain today an 8 out of 10. ROS General: no recent weight change, no fever, no sleep disturbances Respiratory: no cough, no shortness of air, no recurring pulmonary infections Cardiovascular/Peripheral Vascular: No chest pain, No palpitations, no edema, no shortness of breath. Gastrointestinal: no incontinence, normal bowel movements reported Genitourinary: no incontinence Musculoskeletal: Back pain, leg pain Psychiatric: normal mood/ affect Neurological: [denies weakness in extremities], [denies balance issues] Objective:: Physical Exam General: Alert and oriented x3, no acute distress, pleasant and cooperative, [on room air] Lungs: Resps E/U, Symmetrical chest expansion, Eyes: PERRL Musculoskeletal: Flexion and extension of lumbar spine somewhat guarded secondary to pain, deep tendon reflexes normal, strength in upper and lower extremities [5/5], antalgic gait noted Neurological: speech clear, lead systems engineer equal, no gross sensory deficits Assessment:: Degenerative disc disease lumbar spine with lumbar radiculopathy, CRPS type II Plan:: Given the patient's symptoms and no relief from injective therapy I feel the patient would benefit from a spinal cord stimulator he isin a great candidate according to psychological evaluation. We will schedule him for his trial reassess him during that time. He is not on any anticoagulation therapy. He is failed over 6 months of conservative treatment. Dr. Carranza has reviewed this note and agrees with this plan of care. This note was dictated using voice recognition software and may contain errors or omissions
--- NOTE | 2019-01-23 14:41 | P.CONS_ITS ---
[facility] Pain Management SOAP Note Subjective:: Patient is a pleasant 68-year-old white male who presents today for follow-up after psychological evaluation to determine if he is a candidate for a neurostimulator. According to his psychological evaluation he is a good candidate for the therapy. He has had multiple injections with little to no rel ief. He is continuing to have low back pain radiating to his left legs. He is continuing physical therapy along with NSAIDs. Is also been doing home stretching programs as well. Patient has swelling in his bilateral lower extremities along with color changes. He rates his pain today an 8 out of 10. ROS General: no recent weight change, no fever, no sleep disturbances Respiratory: no cough, no shortness of air, no recurring pulmonary infections Cardiovascular/Peripheral Vascular: No chest pain, No palpitations, no edema, no shortness of breath. Gastrointestinal: no incontinence, normal bowel movements reported Genitourinary: no incontinence Musculoskeletal: Back pain, leg pain Psychiatric: normal mood/ affect Neurological: [denies weakness in extremities], [denies balance issues] Objective:: Physical Exam General: Alert and oriented x3, no acute distress, pleasant and cooperative, [on room air] Lungs: Resps E/U, Symmetrical chest expansion, Eyes: PERRL Musculoskeletal: Flexion and extension of lumbar spine somewhat guarded secondary to pain, deep tendon reflexes normal, strength in upper and lower extremities [5/5], antalgic gait noted Neurological: speech clear, structural steel trades worker equal, no gross sensory deficits Assessment:: Degenerative disc disease lumbar spine with lumbar radiculopathy, CRPS type II Plan:: Given the patient's symptoms and no relief from injective therapy I feel the patient would benefit from a spinal cord stimulator he isin a great candidate according to psychological evaluation. We will schedule him for his trial reassess him during that time. He is not on any anticoagulation therapy. He is failed over 6 months of conservative treatment. Dr. Carranza has reviewed this note and agrees with this plan of care. This note was dictated using voice recognition software and may contain errors or omissions
== END ==
PROVIDERS: PCP Internal Medicine Adolescent Medicine; Visit Provider Clinical Nurse Specialist Family Health
DX: M51.16 Intervertebral disc disorders with radiculopathy, lumbar region (principal); G57.70 Causalgia of unspecified lower limb
CPT/HCPCS: 99212

== ENCOUNTER → 2019-05-13 07:28 | Outpatient (CLI) | payer MEDICARE, SELFPAY ==
[2019-05-13 07:52] LABS: Basophils % 0.6 % (0.1-2.0); Eosinophils # 0.2 K/mm3 (0.0-0.4); Eosinophils % 2.8 % (0.1-12.0); Hematocrit 40.4 % (42.0-52.0); Hemoglobin 13.1 g/dL (14.1-18.0); Lymphocytes # 3.1 K/mm3 (0.7-4.5); Lymphocytes % 51.8 % (10-50); Mean Corpuscular HGB Conc 32.5 g/dL (31.8-35.4); Mean Corpuscular Hemoglobin 29.6 pg (27.0-31.2); Mean Corpuscular Volume 91.2 fl (80-94); Mean Platelet Volume 8.8 fl (7.4-10.4); Monocytes # 0.4 K/mm3 (0.1-1.0); Monocytes % 6.3 % (1.7-9.3); Neutrophils # 2.3 K/mm3 (1.8-7.8); Neutrophils % 38.6 % (37.0-80.0); Platelet Count 295 K/mm3 (142-424); Red Blood Count 4.42 M/mm3 (4.60-6.20); Red Cell Distribution Width 12.7 % (11.5-17.5); White Blood Count 5.9 K/mm3 (4.8-10.8)
[2019-05-13 08:04] LABS: MANUAL DIFFERENTIAL MANUAL DIFFERENTIAL (MANUAL DIFF)
[2019-05-13 08:41] LABS: Eosinophils % 3 % (0-3); Lymphocytes % 51 % (10-50); Monocytes % 8 % (2-9); Neutrophils % 38 % (42-76); Total Cells Counted 100
[2019-05-13 08:42] LABS: Alanine Aminotransferase 38 U/L (12-78); Albumin Level 3.9 gm/dL (3.4-5.0); Albumin/Globulin Ratio 1.1 (1.1-1.8); Alkaline Phosphatase 41 U/L (46-116); Aspartate Amino Transferase 29 U/L (15-37); Bilirubin,Total 0.3 mg/dL (0.2-1.0); Blood Urea Nitrogen 18 mg/dL (7-18); Calcium 8.9 mg/dL (8.5-10.1); Carbon Dioxide 28 mmol/L (21.0-32.0); Chloride 105 mmol/L (98-107); Chol/HDL Ratio 3.1 (1-3.5); Cholesterol 159 mg/dL (140-200); Estimated Glomerular Filt Rate 60 ml/min (>60); GFR (African American) 73 ML/MIN (>60); Globulin 3.4 gm/dl (1.3-3.2); HDL Cholesterol 52 mg/dL (27-67); LDL Cholesterol 97 mg/dL (0-130); Sodium 139 mmol/L (136-145); Total Protein,Serum 7.3 gm/dL (6.4-8.2); Triglycerides 51 mg/dL (30-200); VLDL Cholesterol 10 mg/dL (0-40)
[2019-05-13 08:46] LABS: Platelet Estimate Normal; RBC Morphology Normal
[2019-05-13 09:00] LABS: Glucose 138 mg/dL (74-106)
[2019-05-13 10:48] LABS: Hemoglobin A1C 6.7 % (0.0-7.0)
== END ==
PROVIDERS: Visit Provider Nurse Practitioner Family
DX: E11.9 Type 2 diabetes mellitus without complications (principal); E78.5 Hyperlipidemia, unspecified; I27.29 Other secondary pulmonary hypertension; I25.10 Atherosclerotic heart disease of native coronary artery without angina pectoris; I10 Essential (primary) hypertension; Z79.84 Long term (current) use of oral hypoglycemic drugs
CPT/HCPCS: 36415; 80053; 80061; 83036; 85007; 85025

== ENCOUNTER → 2019-11-25 08:08 | Outpatient (CLI) | payer MEDICARE, SELFPAY ==
[2019-11-25 08:34] LABS: Basophils % 0.7 % (0.1-2.0); Eosinophils # 0.2 K/mm3 (0.0-0.4); Eosinophils % 3.3 % (0.1-12.0); Hemoglobin 13.9 g/dL (14.1-18.0); Lymphocytes # 3.4 K/mm3 (0.7-4.5); Lymphocytes % 53.4 % (10-50); Mean Corpuscular HGB Conc 34.7 g/dL (31.8-35.4); Mean Corpuscular Hemoglobin 31.4 pg (27.0-31.2); Mean Corpuscular Volume 90.4 fl (80-94); Mean Platelet Volume 9.1 fl (7.4-10.4); Monocytes # 0.3 K/mm3 (0.1-1.0); Monocytes % 4.6 % (1.7-9.3); Neutrophils # 2.4 K/mm3 (1.8-7.8); Platelet Count 298 K/mm3 (142-424); Red Blood Count 4.42 M/mm3 (4.60-6.20); Red Cell Distribution Width 13.6 % (11.5-17.5); White Blood Count 6.4 K/mm3 (4.8-10.8)
[2019-11-25 08:46] LABS: MANUAL DIFFERENTIAL MANUAL DIFFERENTIAL (MANUAL DIFF)
[2019-11-25 09:51] LABS: Eosinophils % 4 % (0-3); Lymphocytes % 54 % (10-50); Monocytes % 5 % (2-9); Neutrophils % 37 % (42-76); RBC Morphology Normal; Total Cells Counted 100
[2019-11-25 09:52] LABS: Platelet Estimate Normal
[2019-11-25 10:29] LABS: Chloride 101 mmol/L (98-107); Potassium 4.5 mmoL/L (3.5-5.1); Sodium 138 mmol/L (136-145)
[2019-11-25 10:32] LABS: Alanine Aminotransferase 48 U/L (12-78); Albumin Level 4.4 g/dl (3.5-5.0); Albumin/Globulin Ratio 1.5 (1.1-1.8); Alkaline Phosphatase 38 U/L (38-126); Anion Gap 11.5 mEq/L (5-15); Aspartate Amino Transferase 50 U/L (17-59); Bilirubin,Total 0.6 mg/dl (0.2-1.3); Blood Urea Nitrogen 18 mg/dl (9-20); Carbon Dioxide 30 mmol/L (22.0-30.0); Cholesterol 146 mg/dl (140-200); Estimated Glomerular Filt Rate 67 ml/min (>60); GFR (African American) 81 ML/MIN (>60); Globulin 2.9 g/dL (1.3-3.2); Glucose 132 mg/dl (74-100); Total Protein,Serum 7.3 g/dl (6.3-8.2); Triglycerides 90 mg/dl (30-150); VLDL Cholesterol 18 mg/dL (0-40)
[2019-11-25 10:33] LABS: HDL Cholesterol 49 mg/dl (40-60)
[2019-11-25 10:43] LABS: Direct LDL Cholesterol 97.48 mg/dL (100-129)
[2019-11-25 12:21] LABS: Hemoglobin A1C 6.3 % (4.0-6.0)
[2019-11-26 06:40] LABS: Creatinine, Urine 86.1 mg/dL (Not Estab.); Microalbumin, Urine <3.0 ug/mL (Not Estab.)
== END ==
PROVIDERS: Visit Provider Nurse Practitioner Family
DX: I25.10 Atherosclerotic heart disease of native coronary artery without angina pectoris (principal); E11.9 Type 2 diabetes mellitus without complications; E78.5 Hyperlipidemia, unspecified; D64.9 Anemia, unspecified
CPT/HCPCS: 36415; 80053; 80061; 82043; 82570; 83036; 85007; 85025

== ENCOUNTER → 2019-12-25 12:55 | Outpatient (POV) | payer MEDICARE, SELFPAY ==
[2019-12-25 13:17] VITALS: BP 114/72; PULSE 59; RESP 18; O2SAT 99; BMI 31.7
--- NOTE | 2019-12-25 16:23 | P.CONS_ITS ---
[facility] Pain Management SOAP Note Subjective:: Patient is a pleasant 69-year-old white male who presents today for follow-up. Patient has not been here in quite some time. Patient and I had discussed spinal cord stimulator however he decided he did not want to move forward with this. Patient did have epidural injections with some relief. He is recently started physical therapy and would like to couple this therapy with epidural steroid injections. Most the patient's pain is in his back radiating down both of his legs to his toes. He rates it a 8 out of 10. It makes it very difficult for him to work. Patient's not on any anticoagulation therapy. Patient's pain is aching and dull in nature however there are sharp stabbing times as well. ROS General: no recent weight change, no fever, no sleep disturbances Respiratory: no cough, no shortness of air, no recurring pulmonary infections Cardiovascular/Peripheral Vascular: No chest pain, No palpitations, no edema, no shortness of breath. Gastrointestinal: no new onset incontinence, normal bowel movements reported Genitourinary: no new onset incontinence Musculoskeletal: Back pain, leg pain Psychiatric: normal mood/ affect Neurological: [denies new onset weakness in extremities], [denies new onset balance issues] Objective:: Physical Exam General: Alert and oriented x3, no acute distress, pleasant and cooperative, [on room air] Lungs: Resps E/U, Symmetrical chest expansion, Eyes: PERRL Musculoskeletal: Flexion and extension of lumbar spine somewhat guarded secondary to pain, deep tendon reflexes normal, strength in upper and lower extremities [5/5], antalgic gait noted Neurological: speech clear, telesales manager equal, no gross sensory deficits Assessment:: Degenerative disc disease lumbar spine lumbar radiculopathy Plan:: We will set up an L4-L5 lumbar epidural steroid injection. Patient will continue his physical therapy. I do believe that this would be beneficial given his symptomology. I will follow-up with him after this reassess his symptoms at that time. He has been instructed to call the office if he has any issues prior to his next appointment. Dr. Carranza has reviewed this note and agrees with this plan of care. This note was dictated using voice recognition software and may contain errors or omissions [facility] History I have reviewed the patient's past medical history: Yes Medical History: Reports:: Coronary Artery Disease, Diabetes Mellitus Type 2, Gastroesophageal Reflux Disease(GERD), Hyperlipidemia, Hypertension Denies:: Cancer, Diabetes Mellitus Type 1, Internal Pacemaker, Lung Disease, MRSA, Seizures *Have you ever received a pneumonia vaccine?: Yes *Have you received a flu vaccine this season?: Yes Other Medical History: Denies: Blood Transfusion Reaction Laterality Cases: Bilateral: Arthroscopy Shoulder Other Surgeries: Yes: CABG, Cardiac Catheterization, Colonoscopy, Other. No: Pacemaker Amputation: No Fractures: No - *Social History Smoking Status: Never smoker Tobacco Type: cigarettes Alcohol Intake: never Alcohol Intake Frequency:: a few times a week Substance Use Type: denies use *Occupational Status:: other Housing: house Household Members: spouse *Travel in the last 8 weeks: None Family Hx:: Coronary Artery Disease, Hypertension, Hyperlipidemia, Heart Attack
== END ==
PROVIDERS: PCP Internal Medicine Adolescent Medicine; Visit Provider Clinical Nurse Specialist Family Health
DX: M51.16 Intervertebral disc disorders with radiculopathy, lumbar region (principal)
CPT/HCPCS: 99212

== ENCOUNTER 2020-01-12 13:05 | Day surgery (SDC) | payer MEDICARE, SELFPAY ==
[2020-01-12 13:24] VITALS: BP 121/63; PULSE 55; RESP 18; TEMP 36.4; O2SAT 97
[2020-01-12 13:45] VITALS: BP 140/78; PULSE 88; RESP 18; O2SAT 99
[2020-01-12 13:47] VITALS: BP 145/88; PULSE 88; RESP 18; O2SAT 98
[2020-01-12 13:50] VITALS: BP 106/63; PULSE 58; RESP 20; O2SAT 98
--- NOTE | 2020-01-12 13:55 | HMH.PMPROC ---
- Procedure Date: 01/12/20 Time: 13:55 Anesthesiologist:: Mark Carranza MD Complications:: None Pre-procedure Diagnosis:: Degenerative disc disease of lumbar spine with lumbar radiculopathy symptoms Post-procedure Diagnosis:: Same Indications for Procedure:: This patient pleasant 69-year-old white male who we are treating for low back pain with lumbar radiculopathy symptoms. He is done well with previous lumbar epidural steroid injections. We had previously talked about spinal cord stimulation to help with his radicular symptoms. He would like to hold off on pursuing this intervention. For now we will do lumbar epidural steroid injections to see if this will help with his pain symptoms. Procedure Details:: Lumbar epidural steroid injection under fluoroscopy Informed consent was obtained and the risk and benefits of the procedure was explained to the patient. The patient was taken to the procedure room. The patient was placed prone on the procedure table. The patient was prepped and draped in sterile fashion. C-arm fluoroscopy was used to view the lumbar spine. Skin and subcutaneous tissues were anesthetized using lidocaine. I placed an 18-gauge epidural needle and advanced into the L4-L5 interspace using fluoroscopic guidance and [id number] to air. After confirmation of needle placement in the epidural space with dye I injected 2 mL of lidocaine 1.5% with Depo-Medrol 80 mg. Patient tolerated the procedure well with no complications. Plan and Disposition:: We will follow-up with him in 2 weeks. Will reevaluate symptoms at that time.
== END 2020-01-12 13:55 | disposition home or self-care (01) ==
LOC: SC.PAINP 13:06
PROVIDERS: PCP Internal Medicine Adolescent Medicine; Visit Provider Anesthesiology
DX: M51.16 Intervertebral disc disorders with radiculopathy, lumbar region (principal); I25.10 Atherosclerotic heart disease of native coronary artery without angina pectoris; K21.9 Gastro-esophageal reflux disease without esophagitis; M19.90 Unspecified osteoarthritis, unspecified site; Z95.1 Presence of aortocoronary bypass graft; I27.20 Pulmonary hypertension, unspecified; I51.9 Heart disease, unspecified; G47.33 Obstructive sleep apnea (adult) (pediatric); Z87.891 Personal history of nicotine dependence; Z88.8 Allergy status to other drugs, medicaments and biological substances; Z79.899 Other long term (current) drug therapy; Z79.82 Long term (current) use of aspirin
CPT/HCPCS: 62323; J1040; Q9966

== ENCOUNTER → 2020-02-01 13:35 | Outpatient (POV) | payer MEDICARE, SELFPAY ==
[2020-02-01 14:09] VITALS: BP 132/77; PULSE 68; RESP 18; O2SAT 98; BMI 30.7
--- NOTE | 2020-02-01 15:23 | HMH.PAINSOAP ---
[facility] Pain Management SOAP Note Subjective:: Patient is a 69-year-old white male who presents today for follow-up after lumbar epidural steroid injection. He has been treated for low back pain with lumbar radiculopathy symptoms. Patient rates his pain a 1 out of 10 today. He says he did get relief after the injection. He does say, however, he feels that his pain is starting to return. He is seeing a chiropractor. He would like to schedule a repeat lumbar epidural steroid injection to see if he can get longer-term relief. He has discussed possible spinal cord stimulation in the past, however, has decided to hold off pursuing this intervention until later time. He is not on any anticoagulation therapy. Review of Systems General: No recent weight changes, no fever, no sleep disturbances Respiratory: No cough, no shortness of air, no recurring pulmonary infections Cardiovascular/peripheral vascular: No chest pain, no palpitations, no edema, no shortness of breath Gastrointestinal: No new onset incontinence, normal bowel movements reported Genitourinary: No new onset incontinence Musculoskeletal: Low back pain Psychiatric: Normal mood/affect Neurological: [Denies weakness in extremities], [denies balance issues] Objective:: Physical exam General: Alert and oriented x3, no acute distress, pleasant and cooperative, [on room air] Lungs: Respirations even and unlabored, symmetrical chest expansion Eyes: PERRL Musculoskeletal: Flexion and extension of lumbar spine somewhat guarded secondary to pain, deep tendon reflexes normal, strength in upper and lower extremities [5/5], [abnormal gait noted] Neurological: Speech clear, strap folding machine operator equal, no gross sensory deficit Assessment:: Degenerative disc disease lumbar spine with lumbar radiculopathy symptoms Plan:: We will schedule the patient for a another lumbar epidural steroid injection at L4-L5. He is not on any anticoagulation therapy. We will see him back in the clinic after his injection to reassess his symptoms. The patient has been instructed to contact clinic if he has any concerns before his next appointment. The patient and I specifically discussed risk factors for COVID19. These risks include, but are not limited to age greater than 60, heart or lung disease, diabetes, immunosuppression, and travel. We also discussed NSAIDs may worsen COVID19 infection or symptoms. Patient should not use NSAIDs to treat COVID19 signs or symptoms. Patient was also informed that any type of corticosteroid of any form (oral or injection) will decrease the patient's immune system response and may increase the likelihood of COVID19 infection and symptoms[address]. Carranza has reviewed this note and agrees with this plan of care. This note was dictated using voice recognition software and make contain errors or omissions. [facility] History I have reviewed the patient's past medical history: Yes Medical History: Reports:: Coronary Artery Disease, Diabetes Mellitus Type 2, Gastroesophageal Reflux Disease(GERD), Hyperlipidemia, Hypertension Denies:: Cancer, Diabetes Mellitus Type 1, Internal Pacemaker, Lung Disease, MRSA, Seizures *Have you ever received a pneumonia vaccine?: Yes *Have you received a flu vaccine this season?: Yes Other Medical History: Reports: Arthritis. Denies: Blood Transfusion Reaction Laterality Cases: Bilateral: Arthroscopy Shoulder Other Surgeries: Yes: CABG, Cardiac Catheterization, Cardiac Surgery, Colonoscopy, Skin Cancer Excision, Other. No: Pacemaker Amputation: No Fractures: No - *Social History Smoking Status: Never smoker Tobacco Type: cigarettes Alcohol Intake: current Alcohol Intake Frequency:: 0-2 drinks per day Substance Use Type: denies use *Occupational Status:: other Housing: house Household Members: spouse *Travel in the last 8 weeks: None Family Hx:: No significant family history
== END ==
PROVIDERS: PCP Internal Medicine Adolescent Medicine; Visit Provider Clinical Nurse Specialist Family Health
DX: M51.16 Intervertebral disc disorders with radiculopathy, lumbar region (principal)
CPT/HCPCS: 99212

== ENCOUNTER 2020-02-16 13:19 | Day surgery (SDC) | payer MEDICARE, SELFPAY ==
[2020-02-16 13:46] VITALS: BP 129/72; PULSE 67; RESP 18; TEMP 36.4; O2SAT 97; BMI 30.7
[2020-02-16 13:57] VITALS: BP 140/78; PULSE 74; RESP 18
[2020-02-16 13:58] VITALS: BP 138/78; PULSE 74; RESP 18; O2SAT 99
--- NOTE | 2020-02-16 14:01 | HMH.PMPROC ---
- Procedure Date: 02/16/20 Time: 14:01 Anesthesiologist:: Mark Carranza MD Complications:: None Pre-procedure Diagnosis:: Degenerative disease of lumbar spine with lumbar radiculopathy symptoms Post-procedure Diagnosis:: Same Indications for Procedure:: This patient is a pleasant 69-year-old white male who we are treating for low back pain with lumbar radiculopathy symptoms. He did very well with his last lumbar epidural steroid injection. His pain is just now starting to come back. He did go see a chiropractor yesterday. We will repeat lumbar epidural steroid injection today to help him with his returning pain symptoms. Procedure Details:: Lumbar epidural steroid injection under fluoroscopy Informed consent was obtained and the risk and benefits of the procedure was explained to the patient. The patient was taken to the procedure room. The patient was placed prone on the procedure table. The patient was prepped and draped in sterile fashion. C-arm fluoroscopy was used to view the lumbar spine. Skin and subcutaneous tissues were anesthetized using lidocaine. I placed an 18-gauge epidural needle and advanced into the L4-L5 interspace using fluoroscopic guidance and [id number] to air. After confirmation of needle placement in the epidural space with dye I injected 2 mL of lidocaine 1.5% with Depo-Medrol 80 mg. Patient tolerated the procedure well with no complications. Plan and Disposition:: We will follow-up with him in 2 weeks. Will reevaluate his symptoms at that time.
[2020-02-16 14:15] VITALS: BP 115/72; PULSE 58; RESP 18; O2SAT 97
== END 2020-02-16 14:15 | disposition home or self-care (01) ==
LOC: SC.PAINP 13:21
PROVIDERS: PCP Internal Medicine Adolescent Medicine; Visit Provider Anesthesiology
DX: M51.16 Intervertebral disc disorders with radiculopathy, lumbar region (principal); I10 Essential (primary) hypertension; J44.9 Chronic obstructive pulmonary disease, unspecified; Z87.39 Personal history of other diseases of the musculoskeletal system and connective tissue; Z88.8 Allergy status to other drugs, medicaments and biological substances; Z79.82 Long term (current) use of aspirin; Z79.890 Hormone replacement therapy; Z79.899 Other long term (current) drug therapy
CPT/HCPCS: 62323; J1040; Q9966

== ENCOUNTER → 2020-03-14 13:51 | Outpatient (POV) | payer MEDICARE, SELFPAY ==
[2020-03-14 14:18] VITALS: BP 138/78; PULSE 76; RESP 18; O2SAT 99; BMI 32.1
--- NOTE | 2020-03-14 14:46 | HMH.PAINSOAP ---
[facility] Pain Management SOAP Note Subjective:: Patient is a 69-year-old white male who presents today for follow-up. He is being treated for chronic low back pain with lumbar radiculopathy symptoms. Patient has undergone steroid injections in his lumbar spine and has gotten relief, however, his pain does return within a week to 2 weeks after the injections. Patient is complaining of severe low back pain today that radiates into his bilateral groin intermittently and to bilateral legs and feet. He is having pain in bilateral legs and feet. He says he is not having any type of numbness or tingling. Patient says he did discuss possible spinal cord stimulation trial in the past, however, he says that he started seeing a chiropractor and was getting relief so he postpone ecological evaluation at that time. Unfortunately, the patient says that he is no longer getting relief from chiropractic therapy and would like to proceed with possible spinal cord stimulation. He has tried and failed conservative therapies of injections, physical therapy, home stretching and ice and heat therapies. He does rate his pain a 6 out of 10 today. The patient is very active and says that he is now limited in his mobility and daily activity. Review of Systems General: No recent weight changes, no fever, no sleep disturbances Respiratory: No cough, no shortness of air, no recurring pulmonary infections Cardiovascular/peripheral vascular: No chest pain, no palpitations, no edema, no shortness of breath Gastrointestinal: No new onset incontinence, normal bowel movements reported Genitourinary: No new onset incontinence Musculoskeletal: Low back pain with radiation into bilateral lower extremities and bilateral groin Psychiatric: Normal mood/affect Neurological: [Denies weakness in extremities], [denies balance issues] Objective:: Physical exam General: Alert and oriented x3, no acute distress, pleasant and cooperative, [on room air] Lungs: Respirations even and unlabored, symmetrical chest expansion Eyes: PERRL Musculoskeletal: Flexion and extension of lumbar spine somewhat guarded secondary to pain, deep tendon reflexes normal, strength in upper and lower extremities [5/5], [abnormal gait noted] Neurological: Speech clear, behavioral health therapist equal, no gross sensory deficit Assessment:: Degenerative disc disease lumbar spine with lumbar radiculopathy symptoms Plan:: We will schedule the patient for psychological evaluation for possible spinal cord stimulation. Patient is tried and failed all other conservative therapies and does not get long-term relief. We will plan to see him back after his psychological evaluation to discuss a further plan of care. Patient has been instructed to contact clinic if he has any concerns before his next appointment. The patient and I specifically discussed risk factors for COVID19. These risks include, but are not limited to age greater than 60, heart or lung disease, diabetes, immunosuppression, and travel. We also discussed NSAIDs may worsen COVID19 infection or symptoms. Patient should not use NSAIDs to treat COVID19 signs or symptoms. Patient was also informed that any type of corticosteroid of any form (oral or injection) will decrease the patient's immune system response and may increase the likelihood of COVID19 infection [address] symptoms[address] Carranza has reviewed this note and agrees with this plan of care. This note was dictated using voice recognition software and make contain errors or omissions. [facility] History I have reviewed the patient's past medical history: Yes Medical History: Reports:: Coronary Artery Disease, Diabetes Mellitus Type 2, Gastroesophageal Reflux Disease(GERD), Hyperlipidemia, Hypertension Denies:: Cancer, Diabetes Mellitus Type 1, Internal Pacemaker, Lung Disease, MRSA, Seizures *Have you ever received a pneumonia vaccine?: Yes *Have you received a flu vaccine this season?: Yes Other Medical History: Reports: A
== END ==
PROVIDERS: PCP Internal Medicine Adolescent Medicine; Visit Provider Clinical Nurse Specialist Family Health
DX: M51.16 Intervertebral disc disorders with radiculopathy, lumbar region (principal)
CPT/HCPCS: 99212

== ENCOUNTER → 2020-03-26 16:34 | Outpatient (CLI) | payer MEDICARE, SELFPAY ==
--- NOTE | 2020-03-26 | MR_ITS ---
PROCEDURE: MR LUMBAR SPINE WO CON CLINICAL INDICATION: LBP CHRONIC LBP. NO INJURY WITH BILATERAL LOWER EXTREMTIY SCIATICA. NO PRIOR. COMPARISON: No exams were available for comparison TECHNIQUE: Standard multiplanar multiecho sequences are performed without contrast. 3-D MIP and myelographic images are also rendered and reviewed FINDINGS: There is normal alignment. The spinal cord ends at the L1 level. L1-L2: There is mild degenerative disc disease with a small central disc protrusion very slightly eccentric toward the left with mild facet and ligamentum hypertrophy causing mild left lateral recess narrowing. There is an annular fissure centrally. L2-L3: Mild concentric bulging disc with facet and ligamentum hypertrophy with mild bilateral lateral recess and foraminal narrowing. L3-L4: Bulging disc with minimal central disc protrusion very slightly eccentric toward the left along with moderate facet and ligamentum hypertrophy with bilateral lateral recess and foraminal narrowing. L4-5: Degenerative disc disease with bulging disc along with facet and ligamentum hypertrophy. There is a small broad-based central disc protrusion. Canal stenosis is present with severe bilateral lateral recess narrowing and moderate to severe bilateral foraminal narrowing. L5-S1: There are endplate hypertrophic changes along the inferior and posterior aspect of L5 along with bulging disc. This is slightly eccentric toward the left abutting the left S1 nerve root and causing mild left lateral recess narrowing and [id number] left foraminal narrowing. IMPRESSION: Multilevel lumbar spondylosis with degenerative disc disease, bulging disc, small disc protrusions, endplate and facet and ligamentum hypertrophy with lateral recess and foraminal narrowing as well as canal stenosis at L4-5. Please see above for detailed description at each level. Dictated by: Marco Antonio Blum MD 03/27/2020 09:57 Marco Antonio Blum MD in [place] 03/27/2020 09:57
== END ==
PROVIDERS: PCP Internal Medicine Adolescent Medicine; Visit Provider Nurse Practitioner Family
DX: M54.5 Low back pain (principal); M48.062 Spinal stenosis, lumbar region with neurogenic claudication; R29.2 Abnormal reflex
CPT/HCPCS: 72148; 76376

== ENCOUNTER → 2020-05-24 08:18 | Outpatient (CLI) | payer MEDICARE, SELFPAY ==
[2020-05-24 08:52] LABS: Basophils # 0.1 K/mm3 (0-0.2); Basophils % 0.8 % (0.1-2.0); Eosinophils # 0.3 K/mm3 (0.0-0.4); Eosinophils % 3.7 % (0.1-12.0); Hematocrit 41.4 % (42.0-52.0); Hemoglobin 13.8 g/dL (14.1-18.0); Lymphocytes % 57.9 % (10-50); Mean Corpuscular HGB Conc 33.5 g/dL (31.8-35.4); Mean Corpuscular Hemoglobin 30.2 pg (27.0-31.2); Mean Corpuscular Volume 90.4 fl (80-94); Mean Platelet Volume 8.5 fl (7.4-10.4); Monocytes # 0.3 K/mm3 (0.1-1.0); Monocytes % 4.6 % (1.7-9.3); Neutrophils # 2.3 K/mm3 (1.8-7.8); Neutrophils % 33.1 % (37.0-80.0); Platelet Count 323 K/mm3 (142-424); Red Blood Count 4.58 M/mm3 (4.60-6.20); Red Cell Distribution Width 13.8 % (11.5-17.5)
[2020-05-24 08:56] LABS: MANUAL DIFFERENTIAL MANUAL DIFFERENTIAL (MANUAL DIFF)
[2020-05-24 09:19] LABS: Chloride 102 mmol/L (98-107); Potassium 4.6 mmoL/L (3.5-5.1); Sodium 141 mmol/L (136-145)
[2020-05-24 09:22] LABS: Alanine Aminotransferase 31 U/L (12-78); Albumin Level 4.8 g/dl (3.5-5.0); Albumin/Globulin Ratio 1.7 (1.1-1.8); Alkaline Phosphatase 53 U/L (38-126); Anion Gap 12.6 mEq/L (5-15); Aspartate Amino Transferase 37 U/L (17-59); Bilirubin,Total 0.5 mg/dl (0.2-1.3); Blood Urea Nitrogen 18 mg/dl (9-20); Calcium 10.1 mg/dl (8.4-10.2); Carbon Dioxide 31 mmol/L (22.0-30.0); Cholesterol 115 mg/dl (140-200); Estimated Glomerular Filt Rate 55 ml/min (>60); GFR (African American) 66 ML/MIN (>60); Globulin 2.8 g/dL (1.3-3.2); Glucose 129 mg/dl (74-100); HDL Cholesterol 57 mg/dl (40-60); Total Protein,Serum 7.6 g/dl (6.3-8.2); Triglycerides 140 mg/dl (30-150); VLDL Cholesterol 28 mg/dL (0-40)
[2020-05-24 09:33] LABS: Direct LDL Cholesterol 35.42 mg/dL (100-129)
[2020-05-24 11:04] LABS: Hemoglobin A1C 6.7 % (4.0-6.0)
[2020-05-24 11:38] LABS: Lymphocytes % 41 % (10-50); Monocytes % 5 % (2-9); Neutrophils % 54 % (42-76); RBC Morphology Normal; Total Cells Counted 100
[2020-05-24 11:39] LABS: Platelet Estimate Normal
== END ==
PROVIDERS: Visit Provider Nurse Practitioner Family
DX: E11.9 Type 2 diabetes mellitus without complications (principal); E78.2 Mixed hyperlipidemia; I27.20 Pulmonary hypertension, unspecified; Z79.84 Long term (current) use of oral hypoglycemic drugs
CPT/HCPCS: 36415; 80053; 80061; 83036; 85007; 85025

== ENCOUNTER → 2020-12-14 08:28 | Outpatient (CLI) | payer MEDICARE, SELFPAY ==
[2020-12-14 08:46] LABS: Basophils % 0.5 % (0.1-2.0); Eosinophils # 0.3 K/mm3 (0.0-0.4); Hematocrit 39.7 % (42.0-52.0); Hemoglobin 13.2 g/dL (14.1-18.0); Lymphocytes # 3.8 K/mm3 (0.7-4.5); Lymphocytes % 57.3 % (10-50); Mean Corpuscular HGB Conc 33.2 g/dL (31.8-35.4); Mean Corpuscular Volume 87.3 fl (80-94); Mean Platelet Volume 8.7 fl (7.4-10.4); Monocytes # 0.4 K/mm3 (0.1-1.0); Monocytes % 5.9 % (1.7-9.3); Neutrophils # 2.2 K/mm3 (1.8-7.8); Neutrophils % 32.2 % (37.0-80.0); Platelet Count 299 K/mm3 (142-424); Red Blood Count 4.54 M/mm3 (4.60-6.20); Red Cell Distribution Width 13.3 % (11.5-17.5); White Blood Count 6.7 K/mm3 (4.8-10.8)
[2020-12-14 08:53] LABS: MANUAL DIFFERENTIAL MANUAL DIFFERENTIAL (MANUAL DIFF)
[2020-12-14 09:16] LABS: Eosinophils % 4 % (0-3); Lymphocytes % 64 % (10-50); Monocytes % 6 % (2-9); Neutrophils % 26 % (42-76); Platelet Estimate Normal; RBC Morphology Normal; Total Cells Counted 100
[2020-12-14 09:56] LABS: Chloride 104 mmol/L (98-107); Potassium 5.2 mmoL/L (3.5-5.1); Sodium 142 mmol/L (136-145)
[2020-12-14 09:59] LABS: Alanine Aminotransferase 33 U/L (12-78); Albumin Level 4.5 g/dl (3.5-5.0); Albumin/Globulin Ratio 1.6 (1.1-1.8); Alkaline Phosphatase 57 U/L (38-126); Anion Gap 14.2 mEq/L (5-15); Aspartate Amino Transferase 39 U/L (17-59); Bilirubin,Total 0.4 mg/dl (0.2-1.3); Blood Urea Nitrogen 26 mg/dl (9-20); Carbon Dioxide 29 mmol/L (22.0-30.0); Cholesterol 92 mg/dl (140-200); Estimated Glomerular Filt Rate 66 ml/min (>60); GFR (African American) 80 ML/MIN (>60); Globulin 2.8 g/dL (1.3-3.2); Total Protein,Serum 7.3 g/dl (6.3-8.2); Triglycerides 67 mg/dl (30-150); VLDL Cholesterol 13 mg/dL (0-40)
[2020-12-14 10:00] LABS: Calcium 9.5 mg/dl (8.4-10.2); Chol/HDL Ratio 1.8 (1-3.5); Glucose 142 mg/dl (74-100); HDL Cholesterol 50 mg/dl (40-60)
[2020-12-15 06:23] LABS: Creatinine,Urine Random 173 mg/dL (Not Estab.)
== END ==
PROVIDERS: Visit Provider Nurse Practitioner Family
DX: E11.9 Type 2 diabetes mellitus without complications (principal); E78.2 Mixed hyperlipidemia; D64.9 Anemia, unspecified; Z79.84 Long term (current) use of oral hypoglycemic drugs
CPT/HCPCS: 36415; 80053; 80061; 82043; 82570; 83036; 85007; 85025

== ENCOUNTER → 2021-03-03 08:06 | Outpatient (CLI) | payer MEDICARE, SELFPAY ==
[2021-03-03 08:31] LABS: Basophils # 0.1 K/mm3 (0-0.2); Basophils % 0.7 % (0.1-2.0); Eosinophils # 0.3 K/mm3 (0.0-0.4); Eosinophils % 4.2 % (0.1-12.0); Hematocrit 38.9 % (42.0-52.0); Hemoglobin 12.5 g/dL (14.1-18.0); Lymphocytes % 42.7 % (10-50); Mean Corpuscular Hemoglobin 29.3 pg (27.0-31.2); Mean Corpuscular Volume 91.4 fl (80-94); Mean Platelet Volume 9.9 fl (7.4-10.4); Monocytes # 0.4 K/mm3 (0.1-1.0); Monocytes % 5.6 % (1.7-9.3); Neutrophils # 3.2 K/mm3 (1.8-7.8); Neutrophils % 46.8 % (37.0-80.0); Platelet Count 389 K/mm3 (142-424); Red Blood Count 4.25 M/mm3 (4.60-6.20); Red Cell Distribution Width 13.4 % (11.5-17.5); White Blood Count 6.9 K/mm3 (4.8-10.8)
[2021-03-03 09:05] LABS: Alanine Aminotransferase 23 U/L (12-78); Albumin Level 4.2 g/dl (3.5-5.0); Albumin/Globulin Ratio 1.4 (1.1-1.8); Alkaline Phosphatase 46 U/L (38-126); Anion Gap 14.1 mEq/L (5-15); Aspartate Amino Transferase 30 U/L (17-59); Blood Urea Nitrogen 18 mg/dl (9-20); Calcium 9.2 mg/dl (8.4-10.2); Carbon Dioxide 27 mmol/L (22.0-30.0); Chloride 102 mmol/L (98-107); Creatine Kinase 49 U/L (55-170); Estimated Glomerular Filt Rate 66 ml/min (>60); GFR (African American) 80 ML/MIN (>60); Glucose 142 mg/dl (74-100); Magnesium 1.8 mg/dl (1.6-2.3); Potassium 4.1 mmoL/L (3.5-5.1); Sodium 139 mmol/L (136-145); Total Protein,Serum 7.2 g/dl (6.3-8.2)
[2021-03-03 09:22] LABS: Erythrocyte Sedimentation Rate > 140 mm/hr (0-20)
[2021-03-03 09:26] LABS: Bilirubin,Total 0.1 mg/dl (0.2-1.3)
[2021-03-03 09:35] LABS: Thyroid Stimulating Hormone 2.41 uIU/mL (0.465-4.68)
[2021-03-05 04:28] LABS: Hemoglobin A1C 7.1 % (4.0-6.0)
== END ==
PROVIDERS: Visit Provider Nurse Practitioner Family
DX: E11.22 Type 2 diabetes mellitus with diabetic chronic kidney disease (principal); M79.10 Myalgia, unspecified site; I27.20 Pulmonary hypertension, unspecified; D64.9 Anemia, unspecified; Z79.84 Long term (current) use of oral hypoglycemic drugs
CPT/HCPCS: 36415; 80053; 82550; 83036; 83735; 84443; 85025; 85651

== ENCOUNTER → 2021-03-20 07:42 | Outpatient (CLI) | payer MEDICARE, SELFPAY ==
[2021-03-20 08:54] LABS: Erythrocyte Sedimentation Rate 17 mm/hr (0-20)
[2021-03-20 08:57] LABS: C-Reactive Protein 1.7 mg/L (0-4)
[2021-03-21 07:32] LABS: RA Latex Turbid. <10.0 IU/mL (0.0-13.9)
[2021-03-22 00:02] LABS: Antinuclear Antibodies, IFA Negative (.)
[2021-03-22 00:07] LABS: Anti-Cyclic Citrullinated Pept 1 units (0-19)
[2021-03-26 15:07] LABS: HLA-B27 Negative (.)
== END ==
PROVIDERS: Visit Provider Nurse Practitioner Family
DX: M25.50 Pain in unspecified joint (principal); R70.0 Elevated erythrocyte sedimentation rate
CPT/HCPCS: 36415; 85651; 86038; 86140; 86200; 86431; 86812

== ENCOUNTER → 2021-04-02 11:33 | Outpatient (CLI) | payer MEDICARE, SELFPAY ==
--- NOTE | 2021-04-02 11:38 | XR_ITS ---
PROCEDURE: XR LUMBAR SPINE 2-3V CLINICAL INDICATION: LUMBAR RADICULOPATHY COMPARISON: MR MR LUMBAR SPINE WO CON from 03/26/2020 FINDINGS: Interval posterior fusion with inter pedicular screws at L4, L5, and S1 with a disc spacer device at L4-5. Bridging osteophytes are present anteriorly at L5-S1 with loss of joint space. No acute fracture or dislocation. No lytic or blastic change. Generalized vascular calcification is noted. There is good alignment. IMPRESSION: Inter pedicular screws with posterior fusion at L4-L5 and S1 as described above Dictated by: Marco Antonio Blum MD 04/02/2021 16:02 Marco Antonio Blum MD in [place] 04/02/2021 16:02
== END ==
PROVIDERS: PCP Nurse Practitioner Family; Visit Provider Physician Assistant
DX: M54.16 Radiculopathy, lumbar region (principal)
CPT/HCPCS: 72100

== ENCOUNTER → 2021-06-19 08:25 | Outpatient (CLI) | payer MEDICARE, SELFPAY ==
[2021-06-19 08:56] LABS: Basophils # 0.4 K/mm3 (0-0.2); Basophils % 4.9 % (0.1-2.0); Eosinophils # 0.3 K/mm3 (0.0-0.4); Eosinophils % 3.8 % (0.1-12.0); Hematocrit 40.2 % (42.0-52.0); Hemoglobin 13.3 g/dL (14.1-18.0); Lymphocytes % 56.8 % (10-50); Mean Corpuscular Hemoglobin 30.2 pg (27.0-31.2); Mean Corpuscular Volume 91.5 fl (80-94); Mean Platelet Volume 9.5 fl (7.4-10.4); Monocytes # 0.4 K/mm3 (0.1-1.0); Monocytes % 5.7 % (1.7-9.3); Neutrophils # 2.4 K/mm3 (1.8-7.8); Neutrophils % 33.6 % (37.0-80.0); Platelet Count 319 K/mm3 (142-424); Red Blood Count 4.39 M/mm3 (4.60-6.20); Red Cell Distribution Width 13.7 % (11.5-17.5); White Blood Count 7.1 K/mm3 (4.8-10.8)
[2021-06-19 09:02] LABS: MANUAL DIFFERENTIAL MANUAL DIFFERENTIAL (MANUAL DIFF)
[2021-06-19 09:17] LABS: Hemoglobin A1C 6.7 % (4.0-6.0)
[2021-06-19 09:44] LABS: Chloride 100 mmol/L (98-107)
[2021-06-19 09:45] LABS: Potassium 5.2 mmoL/L (3.5-5.1); Sodium 138 mmol/L (136-145)
[2021-06-19 09:47] LABS: Alanine Aminotransferase 38 U/L (12-78); Albumin Level 4.6 g/dl (3.5-5.0); Albumin/Globulin Ratio 1.7 (1.1-1.8); Alkaline Phosphatase 42 U/L (38-126); Anion Gap 13.2 mEq/L (5-15); Aspartate Amino Transferase 44 U/L (17-59); Bilirubin,Total 0.3 mg/dl (0.2-1.3); Blood Urea Nitrogen 24 mg/dl (9-20); Carbon Dioxide 30 mmol/L (22.0-30.0); Eosinophils % 1 % (0-3); Estimated Glomerular Filt Rate 55 ml/min (>60); GFR (African American) 66 ML/MIN (>60); Globulin 2.7 g/dL (1.3-3.2); Lymphocytes % 51 % (10-50); Monocytes % 3 % (2-9); Neutrophils % 45 % (42-76); Total Cells Counted 100; Total Protein,Serum 7.3 g/dl (6.3-8.2)
[2021-06-19 09:48] LABS: Cholesterol 99 mg/dl (140-200); Glucose 148 mg/dl (74-100); HDL Cholesterol 50 mg/dl (40-60); Platelet Estimate Normal; RBC Morphology Normal; Triglycerides 98 mg/dl (30-150); VLDL Cholesterol 20 mg/dL (0-40)
[2021-06-19 09:59] LABS: Direct LDL Cholesterol 32.95 mg/dL (100-129)
== END ==
PROVIDERS: Visit Provider Nurse Practitioner Family
DX: E11.22 Type 2 diabetes mellitus with diabetic chronic kidney disease (principal); N18.2 Chronic kidney disease, stage 2 (mild); Z79.84 Long term (current) use of oral hypoglycemic drugs
CPT/HCPCS: 36415; 80053; 80061; 83036; 85007; 85025

== ENCOUNTER → 2021-11-26 10:49 | Outpatient (CLI) | payer MEDICARE, SELFPAY ==
--- NOTE | 2021-11-26 10:52 | MR_ITS ---
FINAL REPORT CLINICAL HISTORY: LT HIP PAIN FINDINGS: Multiplanar MR imaging of the left hip was performed without contrast. There is no evidence of fracture or dislocation. There is no evidence of avascular necrosis. No bony mass is identified. No labral tear is identified. No significant joint effusion is seen. There are small intrasubstance tears at the origins of the hamstring tendons. The musculature is intact. No soft tissue mass or cyst is identified. IMPRESSION: Small intrasubstance tears at the origins of the hamstring tendons. Reviewed, Interpreted and Dictated by Alan Lane III, MD Transcribed by Pooja Ruiz Authenticated and [facility]
== END ==
PROVIDERS: PCP Nurse Practitioner Family; Visit Provider Nurse Practitioner Family
DX: M25.552 Pain in left hip (principal)
CPT/HCPCS: 73721

== ENCOUNTER → 2021-12-11 08:35 | Outpatient (CLI) | payer MEDICARE, SELFPAY ==
[2021-12-11 09:33] LABS: Basophils # 0.1 K/mm3 (0-0.2); Basophils % 1.8 % (0.1-2.0); Eosinophils # 0.3 K/mm3 (0.0-0.4); Eosinophils % 4.6 % (0.1-12.0); Hematocrit 38.7 % (42.0-52.0); Hemoglobin 13.2 g/dL (14.1-18.0); Lymphocytes # 3.1 K/mm3 (0.7-4.5); Lymphocytes % 52.3 % (10-50); Mean Corpuscular HGB Conc 34.1 g/dL (31.8-35.4); Mean Corpuscular Hemoglobin 30.8 pg (27.0-31.2); Mean Corpuscular Volume 90.3 fl (80-94); Mean Platelet Volume 9.2 fl (7.4-10.4); Monocytes # 0.4 K/mm3 (0.1-1.0); Monocytes % 6.2 % (1.7-9.3); Neutrophils # 2.1 K/mm3 (1.8-7.8); Neutrophils % 35.1 % (37.0-80.0); Platelet Count 298 K/mm3 (142-424); Red Blood Count 4.28 M/mm3 (4.60-6.20); Red Cell Distribution Width 13.5 % (11.5-17.5)
[2021-12-11 09:49] LABS: Alanine Aminotransferase 41 U/L (12-78); Albumin Level 4.2 g/dl (3.5-5.0); Albumin/Globulin Ratio 1.5 (1.1-1.8); Alkaline Phosphatase 49 U/L (38-126); Anion Gap 13.1 mEq/L (5-15); Aspartate Amino Transferase 54 U/L (17-59); Bilirubin,Total 0.3 mg/dl (0.2-1.3); Blood Urea Nitrogen 16 mg/dl (9-20); Carbon Dioxide 29 mmol/L (22.0-30.0); Chloride 104 mmol/L (98-107); Cholesterol 93 mg/dl (140-200); Estimated Glomerular Filt Rate 66 ml/min (>60); GFR (African American) 80 ML/MIN (>60); Globulin 2.8 g/dL (1.3-3.2); Glucose 164 mg/dl (74-100); HDL Cholesterol 47 mg/dl (40-60); Potassium 5.1 mmoL/L (3.5-5.1); Sodium 141 mmol/L (136-145); Triglycerides 84 mg/dl (30-150); VLDL Cholesterol 17 mg/dL (0-40)
[2021-12-11 09:54] LABS: MANUAL DIFFERENTIAL MANUAL DIFFERENTIAL (MANUAL DIFF)
[2021-12-11 10:01] LABS: Creatinine,Urine Random 80 mg/dL (Not Estab.); Microalbumin < 6.000 mg/L (0-16.7)
[2021-12-11 10:03] LABS: Direct LDL Cholesterol < 30.00 mg/dL (100-129)
[2021-12-11 10:25] LABS: Ferritin 21.1 ng/ml (17.9-464)
[2021-12-11 10:27] LABS: Eosinophils % 6 % (0-3); Lymphocytes % 51 % (10-50); Monocytes % 9 % (2-9); Neutrophils % 34 % (42-76); Total Cells Counted 100
[2021-12-11 10:32] LABS: Platelet Estimate Normal
[2021-12-11 10:33] LABS: Giant Platelets 1+; Tear Drop Cells 1+
[2021-12-11 11:03] LABS: Folate > 20.00 ng/mL
[2021-12-11 11:04] LABS: Vitamin B12 > 1000 pg/mL (239-931)
== END ==
PROVIDERS: PCP Nurse Practitioner Family; Visit Provider Nurse Practitioner Family
DX: E11.22 Type 2 diabetes mellitus with diabetic chronic kidney disease (principal); E78.2 Mixed hyperlipidemia; D64.9 Anemia, unspecified; Z79.84 Long term (current) use of oral hypoglycemic drugs
CPT/HCPCS: 36415; 80053; 80061; 82043; 82570; 82607; 82728; 82746; 83036; 85007; 85025

== ENCOUNTER → 2022-01-26 13:38 | Outpatient (POV) | payer MEDICARE, SELFPAY ==
[2022-01-26 14:20] VITALS: BP 118/92; PULSE 67; RESP 20; TEMP 36.6; O2SAT 97; BMI 31.0
--- NOTE | 2022-01-26 14:47 | HMH.PMCON ---
Assessment and Plan (1) Degenerative disc disease, lumbar Status: Acute Category: Medical Code(s): M51.36 - Other intervertebral disc degeneration, lumbar region (2) Lumbar radiculopathy Status: Acute Category: Medical Code(s): M54.16 - Radiculopathy, lumbar region (3) Postlaminectomy syndrome Status: Acute Category: Medical Code(s): M96.1 - Postlaminectomy syndrome, not elsewhere classified (4) History of lumbar fusion Status: Acute Category: Surgical Code(s): Z98.1 - Arthrodesis status - Assessment and plan all Dx Assessment and Plan for all problems:: We will schedule the patient for a lumbar epidural steroid injection at L3-L4. Patient is not on any blood thinners. I will also start this patient on a compounding cream that can help with his knee and muscular pains. Patient has been instructed to contact the clinic with any concerns before the next appointment. Dr. Carranza has reviewed this note and agrees with this plan of care. This note was dictated using voice recognition software and make contain errors or omissions. HPI - Data of Consult Patient: new to practice Consult date: 01/26/22 Requesting Physician: TIFFANY Hernandez Primary Care Provider: Santino Carrillo MD - Consult Narrative Reason for consult: LBP History of present illness: Mr. Mann is a 71 year old male who presents today as a new patient. Patient is referred by Nikolay Dior PA-C and Dr. Zhou. Thank you for the referral. Patient presents today with chronic low back pain that radiates to the left lower extremity. This has been getting worse in the last couple of years. Patient has a surgical history of lumbar fusion L4-S1 that was done by Dr. Zhou in May 2020. He has done well since this procedure. He states that he had significant relief until the summer off 2020. He has continued to be active. He says that his main concern is around his left posterior thigh. He had an MRI of his hamstring that shows tearing. He has recently been evaluated by Dr. Zhou's office. At this time, there is no surgical intervention to do in his hardware are still stable for CP. He was referred to us to try a lumbar epidural steroid injection at L3-L4. Rates pain today as 5 out of 10. He is currently taking gabapentin 300 mg 3 times a day but is not providing significant relief. He also recently moved physical therapy that again provided minimal relief. Javed [id number] with a morphine equivalent of 0. CC: TIFFANY Hernandez [facility] History I have reviewed the patient's past medical history: Yes Medical History: Reports:: Arrhythmia, Coronary Artery Disease, Diabetes Mellitus Type 2, Gastroesophageal Reflux Disease(GERD), Hyperlipidemia, Hypertension, Myocardial Infarction Denies:: Cancer, Diabetes Mellitus Type 1, Internal Pacemaker, Lung Disease, MRSA, Seizures *Have you ever received a pneumonia vaccine?: Yes *Have you received a flu vaccine this season?: Yes Other Medical History: Reports: Arthritis. Denies: Blood Transfusion Reaction Laterality Cases: Left: Arthroscopy Shoulder Other Surgeries: Yes: CABG, Cardiac Catheterization, Cardiac Surgery, Colonoscopy, Skin Cancer Excision, Other. No: Pacemaker Amputation: No Fractures: No - *Social History Smoking Status: Never smoker Tobacco Type: cigarettes Alcohol Intake: never Alcohol Intake Frequency:: holidays/special occasions only Substance Use Type: denies use *Occupational Status:: retired Housing: house Household Members: spouse *Travel in the last 8 weeks: None Family Hx:: No significant family history Review of Systems - Review of Systems Review of Systems: General: No recent weight changes, no fever, no sleep disturbances Respiratory: No cough, no shortness of air, no recurring pulmonary infections Cardiovascular/peripheral vascular: No chest pain, no palpitations, no edema, no shortness of breath Gastrointestinal: No new onset incontinence, normal bowel movement
== END ==
PROVIDERS: PCP Internal Medicine Adolescent Medicine; Visit Provider Student in an Organized Health Care Education/Training Program
DX: M51.16 Intervertebral disc disorders with radiculopathy, lumbar region (principal); M96.3 Postlaminectomy kyphosis; Z98.1 Arthrodesis status
CPT/HCPCS: 99202; G0463

== ENCOUNTER 2022-02-06 13:37 | Day surgery (SDC) | payer MEDICARE, SELFPAY ==
[2022-02-06 13:42] VITALS: BP 134/71; PULSE 64; TEMP 36.4; O2SAT 98; BMI 31.0
--- NOTE | 2022-02-06 14:00 | HMH.PMPROC ---
- Procedure Date: 02/06/22 Time: 14:00 Anesthesiologist:: Miguelito Miles CRNA Complications:: None Pre-procedure Diagnosis:: Degenerative disc disease lumbar spine multilevels. Postlaminectomy syndrome. Lumbar radiculopathy symptoms. Post-procedure Diagnosis:: Same Indications for Procedure:: Very pleasant 71-year-old male whose had lumbar fusion L4-5 L5-S1. He is complaining of low back pain. Bilateral hip and leg radicular symptoms. He presents today for L3-4 lumbar epidural steroid injection. He rates his pain 5/10. He does not complain of any difficulty walking. However, pain does increase when ambulating for distance. Procedure Details:: Procedure: Lumbar epidural steroid injection under fluoroscopy Informed consent was obtained and the risks and benefits of the procedure were explained to the patient. The patient was taken to the procedure room and noninvasive monitors placed, including noninvasive blood pressure cuff and pulse oximeter. The back was viewed using C-arm Fluoroscopy and prepped using Betadine as a cleansing solution and the L4-L5 interspace was palpated. Skin and subcutaneous tissues were anesthetized using lidocaine 1.5% and a 25-gauge needle. After this, an 18-gauge Touhy epidural needle was placed into the L4-L5 interspace and advanced using fluoroscopic guidance and loss of resistance to air until the epidural space was encountered. After confirmation of needle placement in the epidural space, with dye, a solution containing lidocaine 1.5%, 4 mL and Depo-Medrol 80 mg were incrementally injected into the lumbar epidural space. The patient tolerated the procedure well with no complications. The patient was observed in the Pain Clinic and then discharged home neurologically intact. Plan and Disposition:: Patient was discharged without incident.
[2022-02-06 14:02] VITALS: BP 109/62; PULSE 71; RESP 20; O2SAT 98
== END 2022-02-06 14:02 | disposition home or self-care (01) ==
LOC: SC.PAINP 13:40
PROVIDERS: PCP Internal Medicine Adolescent Medicine; Visit Provider Nurse Anesthetist, Certified Registered
DX: M51.16 Intervertebral disc disorders with radiculopathy, lumbar region (principal); M96.1 Postlaminectomy syndrome, not elsewhere classified
CPT/HCPCS: 62323; J1040

== ENCOUNTER → 2022-02-19 11:06 | Outpatient (POV) | payer MEDICARE, SELFPAY ==
[2022-02-19 11:11] VITALS: BP 117/74; PULSE 60; RESP 20; TEMP 36.6; O2SAT 99; BMI 31.0
--- NOTE | 2022-02-19 11:25 | A.OFFVIS_ITS ---
[facility] Pain Management SOAP Note Subjective:: Patient is a pleasant 71-year-old male that presents today for follow-up of a lumbar epidural steroid injection on 02/06/2022 at L4-L5. We are currently treating the patient for degenerative disc disease of lumbar spine multilevels with lumbar radiculopathy symptoms, postlaminectomy syndrome. Today the patient states he has had significant improvement following this injection specifically the tingling in his bilateral extremities. He rates it at about 60% relief and does feel like it is helping still. Today he rates his pain a 2 out of 10 and states the pain is primarily in his hips. Patient denies any new trauma or injury to the site. He denies any change to the location or type of pain he experiences. Patient would like a repeat injection. He also stated at his previous visit they had talked about a compounding cream however no one contacted him to order it. He would like this reordered if possible. Patient has a very physical and demanding job at [employer]. Review of Systems: General: No recent weight changes, no fever, no sleep disturbances Respiratory: No cough, no shortness of air, no recurring pulmonary infections Cardiovascular/peripheral vascular: No chest pain, no palpitations, no edema, no shortness of breath Gastrointestinal: No new onset incontinence, normal bowel movements reported Genitourinary: No new onset incontinence Musculoskeletal: Low back pain, bilateral hip pain Psychiatric: [Normal mood/affect] Neurological: [Denies weakness in extremities], [denies balance issues] Objective:: Physical Exam: General: Alert and oriented x3, no acute distress, pleasant and cooperative Lungs: Respirations even and unlabored, symmetrical chest expansion Eyes: PERRL Musculoskeletal: Flexion and extension of lumbar [spine] somewhat guarded secondary to pain, [antalgic gait noted] Neurological: Speech clear, no gross sensory deficit Assessment:: Degenerative disc disease of lumbar spine multilevels with lumbar radiculopathy symptoms, postlaminectomy syndrome, bilateral hip pain. Plan:: Patient has had significant improvement of his pain symptoms following his last epidural injection. Patient still continues to have pain in his low back that radiates into his bilateral legs including his hips. We will order a repeat lumbar epidural at today's visit. Risk and benefits were discussed with the patient. He would like to proceed forward with this injection. He is not currently on any blood thinners. I will also reorder the compounding cream. We will schedule the patient for a LESI L4-L5 at today's visit. Patient has been instructed to contact the clinic with any concerns before the next appointment. Dr. Carranza has reviewed this note and agrees with this plan of care. This note was dictated using voice recognition software and make contain errors or omissions. 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
== END ==
PROVIDERS: PCP Internal Medicine Adolescent Medicine; Visit Provider Nurse Practitioner Family
DX: M51.16 Intervertebral disc disorders with radiculopathy, lumbar region (principal); M96.1 Postlaminectomy syndrome, not elsewhere classified; M25.552 Pain in left hip; M25.551 Pain in right hip
CPT/HCPCS: 99212; G0463

== ENCOUNTER 2022-03-10 11:00 | Day surgery (SDC) | payer MEDICARE, SELFPAY ==
[2022-03-10 11:23] VITALS: BP 117/64; PULSE 51; RESP 20; O2SAT 100; BMI 30.7
[2022-03-10 11:37] VITALS: BP 130/82; PULSE 70; RESP 18; O2SAT 98
[2022-03-10 11:38] VITALS: BP 130/82; PULSE 70; RESP 18; O2SAT 98
--- NOTE | 2022-03-10 11:42 | EXP.PAIN.PRO ---
Procedure Date: 03/10/22 Time: 11:43 Anesthesiologist:: Miguelito Miles CRNA Complications:: None Pre-procedure Diagnosis:: Degenerative disc disease lumbar spine multilevels. Lumbar radiculopathy. Lumbar postlaminectomy syndrome. Post-procedure Diagnosis:: Same. Indications for Procedure:: Very pleasant 71-year-old male that comes our clinic today for repeat of the lumbar epidural steroid injection. He reports minimal relief from his previous injection at the L4-5 level. Today I will move up to the L3-4 level. We will steer clear of any scar tissue from his previous fusion. Procedure Details:: Procedure: Lumbar epidural steroid injection under fluoroscopy Informed consent was obtained and the risks and benefits of the procedure were explained to the patient. The patient was taken to the procedure room and noninvasive monitors placed, including noninvasive blood pressure cuff and pulse oximeter. The back was viewed using C-arm Fluoroscopy and prepped using Betadine as a cleansing solution and the L3-4 interspace was palpated. Skin and subcutaneous tissues were anesthetized using lidocaine 1.5% and a 25-gauge needle. After this, an 18-gauge Touhy epidural needle was placed into the L3-4 interspace and advanced using fluoroscopic guidance and loss of resistance to air until the epidural space was encountered. After confirmation of needle placement in the epidural space, with dye, a solution containing lidocaine 1.5%, 4 mL and Depo-Medrol 80 mg were incrementally injected into the lumbar epidural space. The patient tolerated the procedure well with no complications. The patient was observed in the Pain Clinic and then discharged home neurologically intact. Plan and Disposition:: Patient was discharged without incident.
[2022-03-10 11:52] VITALS: BP 111/61; PULSE 54; RESP 20; O2SAT 99
== END 2022-03-10 11:53 | disposition home or self-care (01) ==
PROVIDERS: PCP Internal Medicine Adolescent Medicine; Visit Provider Nurse Anesthetist, Certified Registered
DX: M51.16 Intervertebral disc disorders with radiculopathy, lumbar region (principal); M96.1 Postlaminectomy syndrome, not elsewhere classified; M25.551 Pain in right hip; M25.552 Pain in left hip
CPT/HCPCS: 62323; J1040

== ENCOUNTER → 2022-03-23 14:22 | Outpatient (POV) | payer MEDICARE, SELFPAY ==
[2022-03-23 14:52] VITALS: BP 119/62; PULSE 60; RESP 18; TEMP 36.3; O2SAT 96; BMI 30.2
--- NOTE | 2022-03-23 15:39 | EXP.PAIN.SOA ---
[facility] Pain Management SOAP Note Subjective:: Patient is a pleasant 71-year-old who presents today for follow-up of lumbar epidural steroid injection at L3-4 on 03/10/2022. We are currently treating the patient for degenerative disc disease lumbar spine multilevels with lumbar radiculopathy symptoms, lumbar postlaminectomy syndrome. Today the patient states he had significant improvement following this last injection. He states he has had 80% relief and still feels like this injection is helping. Patient has been able to increase his activity with decreased pain symptoms. He states this has been a huge improvement in his daily life. Patient today rates his pain a 2 out of 10. He states the pain is primarily in his low back and radiates into his legs. He states he can feel that it starting to slowly increase. Patient denies any new trauma or injury to the site. He denies any change to the location or type of pain he experiences. Patient is prescribed compounding cream however he states he has not seen significant improvement of his symptoms. He is also managed with gabapentin 300 mg 3 times a day by Manav Zhou. Patient denies any side effects from this medication. He states this medication does adequately help manage his pain. His Javed is [id number] it has been reviewed and appropriate. Review of Systems: General: No recent weight changes, no fever, no sleep disturbances Respiratory: No cough, no shortness of air, no recurring pulmonary infections Cardiovascular/peripheral vascular: No chest pain, no palpitations, no edema, no shortness of breath Gastrointestinal: No new onset incontinence, normal bowel movements reported Genitourinary: No new onset incontinence Musculoskeletal: Low back pain, bilateral leg pain Psychiatric: [Normal mood/affect] Neurological: [Denies weakness in extremities], [denies balance issues] Objective:: Physical Exam: General: Alert and oriented x3, no acute distress, pleasant and cooperative Lungs: Respirations even and unlabored, symmetrical chest expansion Eyes: PERRL Musculoskeletal: Flexion and extension of lumbar [spine] somewhat guarded secondary to pain, [antalgic gait noted] Neurological: Speech clear, no gross sensory deficit Assessment:: Degenerative disc disease lumbar spine multilevels with lumbar radiculopathy symptoms, lumbar postlaminectomy syndrome Plan:: Patient has had significant improvement of his symptoms following his last lumbar epidural steroid injection. At this time the patient is starting to experience more pain symptoms in his low back that radiates into his bilateral extremities. Patient did have limited range of motion of his lumbar spine during today's visit. I have discussed with the patient regarding having a repeat lumbar epidural steroid injection. Risk and benefits were discussed with the patient. He would like to proceed forward with this injection. He is not currently on any blood thinners. We will schedule the patient for a LESI L3-L4 Patient has been instructed to contact the clinic with any concerns before the next appointment. Dr. Carranza has reviewed this note and agrees with this plan of care. This note was dictated using voice recognition software and make contain errors or omissions. 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
== END ==
PROVIDERS: Visit Provider Nurse Practitioner Family
DX: M51.16 Intervertebral disc disorders with radiculopathy, lumbar region (principal); M96.1 Postlaminectomy syndrome, not elsewhere classified
CPT/HCPCS: 99212; G0463

== ENCOUNTER 2022-03-31 11:18 | Day surgery (SDC) | payer MEDICARE, SELFPAY ==
[2022-03-31 11:37] VITALS: BP 115/76; PULSE 68; RESP 20; TEMP 36.5; O2SAT 98; BMI 30.2
[2022-03-31 12:03] VITALS: BP 133/68; PULSE 60; RESP 18; O2SAT 95
[2022-03-31 12:04] VITALS: BP 133/68; PULSE 60; RESP 18; O2SAT 95
[2022-03-31 12:10] VITALS: BP 98/58; PULSE 62; RESP 20
--- NOTE | 2022-03-31 12:59 | EXP.PAIN.PRO ---
Procedure Date: 03/31/22 Time: 12:15 Anesthesiologist:: Miguelito Miles CRNA Complications:: None Pre-procedure Diagnosis:: Degenerative disc disease lumbar spine multilevels. Lumbar radicular symptoms. Lumbar postlaminectomy syndrome Post-procedure Diagnosis:: Same. Indications for Procedure:: Patient is a very pleasant 71-year-old male who comes our clinic today for lumbar epidural steroid injection at L3-4 level. Patient describes significant improvement after his previous epidural steroid injection at this level. He describes his pain today as slight, dull, aching. Also lumbar radicular symptoms. He rates his pain 6/10. Procedure Details:: Procedure: Lumbar epidural steroid injection under fluoroscopy Informed consent was obtained and the risks and benefits of the procedure were explained to the patient. The patient was taken to the procedure room and noninvasive monitors placed, including noninvasive blood pressure cuff and pulse oximeter. The back was viewed using C-arm Fluoroscopy and prepped using Betadine as a cleansing solution and the L4-L5 interspace was palpated. Skin and subcutaneous tissues were anesthetized using lidocaine 1.5% and a 25-gauge needle. After this, an 18-gauge Touhy epidural needle was placed into the L4-L5 interspace and advanced using fluoroscopic guidance and loss of resistance to air until the epidural space was encountered. After confirmation of needle placement in the epidural space, with dye, a solution containing lidocaine 1.5%, 4 mL and Depo-Medrol 80 mg were incrementally injected into the lumbar epidural space. The patient tolerated the procedure well with no complications. The patient was observed in the Pain Clinic and then discharged home neurologically intact. Plan and Disposition:: Patient was discharged without incident
== END 2022-03-31 12:10 | disposition home or self-care (01) ==
LOC: SC.PAINP 11:21
PROVIDERS: PCP Internal Medicine Adolescent Medicine; Visit Provider Nurse Anesthetist, Certified Registered
DX: M51.16 Intervertebral disc disorders with radiculopathy, lumbar region (principal); M96.1 Postlaminectomy syndrome, not elsewhere classified
CPT/HCPCS: 62323; J1040

== ENCOUNTER → 2022-04-21 08:56 | Outpatient (POV) | payer MEDICARE, SELFPAY ==
[2022-04-21 09:21] VITALS: BP 131/83; PULSE 62; RESP 18; TEMP 36.6; O2SAT 99; BMI 30.2
--- NOTE | 2022-04-21 09:32 | A.OFFVIS_ITS ---
[facility] Pain Management SOAP Note Subjective:: Patient is a pleasant 71-year-old male who presents today for follow-up of lumbar epidural steroid injection at L4-L5 on 03/31/2022. We are currently treating the patient for degenerative disc disease of lumbar spine multilevels with lumbar radiculopathy symptoms, lumbar postlaminectomy syndrome. Patient states that he had approximately 75 to 80% relief following this last injection however he states that his pain started back on Wednesday. Today he rates his pain a 3 out of 10. He states the pain is in his low back and radiates into his bilateral lower extremities. Patient denies any new trauma or injury. Patient denies any change in location or type of pain he experiences. He is currently managed with gabapentin 300 mg 3 times a day by Dr. Manav Zhou's office. Patient denies any side effects from this medication. He states this medication does help manage his pain symptoms. He is also prescribed a compounding cream. His Javed is [id number]. It has been reviewed and appropriate. Review of Systems: General: No recent weight changes, no fever, no sleep disturbances Respiratory: No cough, no shortness of air, no recurring pulmonary infections Cardiovascular/peripheral vascular: No chest pain, no palpitations, no edema, no shortness of breath Gastrointestinal: No new onset incontinence, normal bowel movements reported Genitourinary: No new onset incontinence Musculoskeletal: Low back pain Psychiatric: [Normal mood/affect] Neurological: [Denies weakness in extremities], [denies balance issues] Objective:: Physical Exam: General: Alert and oriented x3, no acute distress, pleasant and cooperative Lungs: Respirations even and unlabored, symmetrical chest expansion Eyes: PERRL Musculoskeletal: Flexion and extension of lumbar [spine] somewhat guarded secondary to pain, [antalgic gait noted] Neurological: Speech clear, no gross sensory deficit Assessment:: Degenerative disc disease of lumbar spine multilevel with lumbar radiculopathy symptoms, postlaminectomy syndrome lumbar spine Plan:: Patient continues to have pain in his low back that radiates into his bilateral lower extremities. I have discussed with the patient regarding having a repeat lumbar epidural steroid injection. Risk and benefits were discussed with the patient. He would like to proceed forward with this option. Patient is not on any blood thinners. I have also counseled the patient that he may be a good candidate for a spinal cord stimulator and/or spinal simplicity in the future. We will schedule the patient for a LESI L4-L5. Patient has been instructed to contact the clinic with any concerns before the next appointment. Dr. Carranza has reviewed this note and agrees with this plan of care. This note was dictated using voice recognition software and make contain errors or omissions. 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
== END ==
PROVIDERS: PCP Internal Medicine Adolescent Medicine; Visit Provider Nurse Practitioner Family
DX: M51.16 Intervertebral disc disorders with radiculopathy, lumbar region (principal); M96.1 Postlaminectomy syndrome, not elsewhere classified; Z79.899 Other long term (current) drug therapy
CPT/HCPCS: 99212; G0463

== ENCOUNTER 2022-04-28 14:15 | Day surgery (SDC) | payer BC, MEDICARE, SELFPAY ==
[2022-04-28 14:33] VITALS: BP 124/73; PULSE 68; RESP 18; TEMP 36.4; O2SAT 96; BMI 30.2
[2022-04-28 14:57] VITALS: BP 100/59; PULSE 58; RESP 18; O2SAT 97
[2022-04-28 14:58] VITALS: BP 100/59; PULSE 58; RESP 18; O2SAT 97
--- NOTE | 2022-04-28 15:00 | EXP.PAIN.PRO ---
Procedure Date: 04/28/22 Time: 14:55 Anesthesiologist:: Miguelito Miles CRNA Complications:: None Pre-procedure Diagnosis:: Degenerative disc disease lumbar spine multilevels. Lumbar radiculopathy. Lumbar post laminectomy syndrome. Post-procedure Diagnosis:: Same. Indications for Procedure:: Patient is a very pleasant 71-year-old male that comes our clinic today for lumbar epidural steroid injection at the L2 3 level. Patient is status post three-level lumbar fusion. This injection was given at the superior margin of the lumbar fusion. Patient describes low back pain as constant, dull, aching. He also complains of bilateral hip and leg radicular symptoms. Procedure Details:: Procedure: Lumbar epidural steroid injection under fluoroscopy Informed consent was obtained and the risks and benefits of the procedure were explained to the patient. The patient was taken to the procedure room and noninvasive monitors placed, including noninvasive blood pressure cuff and pulse oximeter. The back was viewed using C-arm Fluoroscopy and prepped using Chloraprep as a cleansing solution and the L2-3 interspace was palpated. Skin and subcutaneous tissues were anesthetized using lidocaine 1.5% and a 25-gauge needle. After this, an 18-gauge Touhy epidural needle was placed into the L2-3 interspace and advanced using fluoroscopic guidance and loss of resistance to air until the epidural space was encountered. After confirmation of needle placement in the epidural space, with dye, a solution containing normal saline, 3 mL and Depo-Medrol 80 mg were incrementally injected into the lumbar epidural space. The patient tolerated the procedure well with no complications. The patient was observed in the Pain Clinic and then discharged home neurologically intact. Plan and Disposition:: Patient was discharged without incident.
[2022-04-28 15:10] VITALS: BP 97/53; PULSE 55; RESP 18; O2SAT 96
== END 2022-04-28 15:10 | disposition home or self-care (01) ==
PROVIDERS: PCP Internal Medicine Adolescent Medicine; Visit Provider Nurse Anesthetist, Certified Registered
DX: M51.16 Intervertebral disc disorders with radiculopathy, lumbar region (principal); M96.1 Postlaminectomy syndrome, not elsewhere classified
CPT/HCPCS: 62323; J1040

== ENCOUNTER → 2022-05-12 11:38 | Outpatient (POV) | payer BC, MEDICARE, SELFPAY ==
[2022-05-12 11:51] VITALS: BP 125/80; PULSE 77; RESP 18; O2SAT 97; BMI 30.2
--- NOTE | 2022-05-12 12:10 | EXP.PAIN.SOA ---
[facility] Pain Management SOAP Note Subjective:: Patient is a pleasant 71-year-old male who presents today for follow-up of lumbar epidural steroid injection at L2-L3 on 04/28/2022. We are currently treating the patient for degenerative disc disease of lumbar spine multilevels with lumbar radiculopathy symptoms, postlaminectomy syndrome. Patient states that he has had 80 to 90% relief following this last injection however it only worked for approximately a week and a half. Patient today rates his pain a 3 out of 10. Patient denies any new trauma or injury. Patient denies any change in location or type of pain he experiences. Patient states the pain is all in his low back that radiates down his lower extremities. He describes this as a aching, throbbing sensation that is worse with increased activity. Patient is currently managed with gabapentin 300 mg 3 times a day from a outside provider. Patient states he does only take this medication twice a day. Patient denies any side effects from this medication. He states that this medication does help with his pain symptoms. He is also prescribed compounding cream that provides some relief. His Javed is [id number]. It is been reviewed and appropriate. Review of Systems: General: No recent weight changes, no fever, no sleep disturbances Respiratory: No cough, no shortness of air, no recurring pulmonary infections Cardiovascular/peripheral vascular: No chest pain, no palpitations, no edema, no shortness of breath Gastrointestinal: No new onset incontinence, normal bowel movements reported Genitourinary: No new onset incontinence Musculoskeletal: Low back pain, bilateral leg pain Psychiatric: [Normal mood/affect] Neurological: [Denies weakness in extremities], [denies balance issues] Objective:: Physical Exam: General: Alert and oriented x3, no acute distress, pleasant and cooperative Lungs: Respirations even and unlabored, symmetrical chest expansion Eyes: PERRL Musculoskeletal: Flexion and extension of lumbar [spine] somewhat guarded secondary to pain, [antalgic gait noted] Neurological: Speech clear, no gross sensory deficit Assessment:: Degenerative disc disease of lumbar spine multilevel with lumbar radiculopathy symptoms, postlaminectomy syndrome Plan:: Patient continues to experience significant pain in his low back that radiates into his bilateral lower extremities. Patient did have limited range of motion of his lumbar spine at today's visit. Patient continues to have significant relief of upwards of 80 to 90% with each epidural injection however they only lasted short-term. I have recommended the patient do a repeat lumbar epidural. Risk and benefits were discussed with the patient. He would like to proceed forward with this plan of care. He is not currently on any blood thinners. I have also discussed with the patient that he may be a beneficial candidate for a spinal cord stimulator or spinal simplicity procedure in the future. I have counseled the patient to take his gabapentin as prescribed 3 times a day and see if he has any additional improvement of his symptoms. We will schedule him for a LESI L2-L3. Patient has been instructed to contact the clinic with any concerns before the next appointment. Dr. Carranza has reviewed this note and agrees with this plan of care. This note was dictated using voice recognition software and make contain errors or omissions. 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
== END ==
PROVIDERS: PCP Internal Medicine Adolescent Medicine; Visit Provider Nurse Practitioner Family
DX: M51.16 Intervertebral disc disorders with radiculopathy, lumbar region (principal); M96.1 Postlaminectomy syndrome, not elsewhere classified
CPT/HCPCS: 99212; G0463

== ENCOUNTER 2022-05-26 09:44 | Day surgery (SDC) | payer BC, MEDICARE, SELFPAY ==
[2022-05-26 10:01] VITALS: BP 134/73; PULSE 64; RESP 18; TEMP 36.4; O2SAT 99; BMI 30.2
[2022-05-26 10:07] VITALS: BP 125/72; PULSE 66; RESP 18; O2SAT 98
[2022-05-26 10:20] VITALS: BP 142/72; PULSE 58; RESP 20
--- NOTE | 2022-05-26 11:19 | EXP.PAIN.PRO ---
Procedure Date: 05/26/22 Time: 10:40 Anesthesiologist:: Miguelito Miles CRNA Complications:: None Pre-procedure Diagnosis:: Degenerative disc disease lumbar spine multilevels. Lumbar radiculopathy. Lumbar postlaminectomy syndrome. Post-procedure Diagnosis:: Same. Indications for Procedure:: Patient is a very pleasant 71-year-old male comes our clinic today for repeat lumbar epidural steroid injection at the L2-3 level. Patient is having 1 to 2 weeks of significant improvement in terms of his low back pain and bilateral hip and leg radicular symptoms. I discussed in detail with the patient today regarding caudal approach to lumbar epidural steroid injection in the future if in fact today's injection is not significantly helpful. Procedure Details:: Procedure: Lumbar epidural steroid injection under fluoroscopy Informed consent was obtained and the risks and benefits of the procedure were explained to the patient. The patient was taken to the procedure room and noninvasive monitors placed, including noninvasive blood pressure cuff and pulse oximeter. The back was viewed using C-arm Fluoroscopy and prepped using Chloraprep as a cleansing solution and the L2-3 interspace was palpated. Skin and subcutaneous tissues were anesthetized using lidocaine 1.5% and a 25-gauge needle. After this, an 18-gauge Touhy epidural needle was placed into the L2-3 interspace and advanced using fluoroscopic guidance and loss of resistance to air until the epidural space was encountered. After confirmation of needle placement in the epidural space, with dye, a solution containing normal saline, 3 mL and Depo-Medrol 80 mg were incrementally injected into the lumbar epidural space. The patient tolerated the procedure well with no complications. The patient was observed in the Pain Clinic and then discharged home neurologically intact. Plan and Disposition:: Patient was discharged without incident.
== END 2022-05-26 10:20 | disposition home or self-care (01) ==
LOC: SC.PAINP 09:47
PROVIDERS: PCP Internal Medicine Adolescent Medicine; Visit Provider Nurse Anesthetist, Certified Registered
DX: M51.16 Intervertebral disc disorders with radiculopathy, lumbar region (principal); M96.1 Postlaminectomy syndrome, not elsewhere classified
CPT/HCPCS: 62323; J1040

== ENCOUNTER → 2022-06-11 09:03 | Outpatient (POV) | payer BC, MEDICARE, SELFPAY ==
--- NOTE | 2022-06-11 09:19 | EXP.PAIN.SOA ---
[facility] Pain Management SOAP Note Subjective:: Patient is a pleasant 71-year-old male who presents today for follow-up of lumbar epidural steroid injection at L2-3 on 05/26/2022. We are currently treating the patient for degenerative disc disease of lumbar spine multilevels with lumbar radiculopathy symptoms, postlaminectomy syndrome. Today the patient states that he had no relief from this last injection. Patient states his pain is a 3 out of 10. Patient denies any new trauma or injury. Patient denies any change location or type of pain he experiences. Patient is currently managed on gabapentin 300 mg 3 times a day from an outside provider. Patient denies any side effects from this medication. He states this does help his pain symptoms. Patient is also prescribed compounding cream that does provide some additional relief. Patient has had multiple injections in the past that provided significant improvement of upwards of 80 to 90% relief lasting approximately a week and a half with each injection. His Javed is [id number]. Its been reviewed and appropriate. Review of Systems: General: No recent weight changes, no fever, no sleep disturbances Respiratory: No cough, no shortness of air, no recurring pulmonary infections Cardiovascular/peripheral vascular: No chest pain, no palpitations, no edema, no shortness of breath Gastrointestinal: No new onset incontinence, normal bowel movements reported Genitourinary: No new onset incontinence Musculoskeletal: Low back pain Psychiatric: [Normal mood/affect] Neurological: [Denies weakness in extremities], [denies balance issues] Objective:: Physical Exam: General: Alert and oriented x3, no acute distress, pleasant and cooperative Lungs: Respirations even and unlabored, symmetrical chest expansion Eyes: PERRL Musculoskeletal: Flexion and extension of lumbar [spine] somewhat guarded secondary to pain, [antalgic gait noted] Neurological: Speech clear, no gross sensory deficit Assessment:: Degenerative disc disease of lumbar spine multilevels with lumbar radiculopathy symptoms, postlaminectomy syndrome Plan:: Patient is experiencing significant pain in his low back with radiating symptoms into his lower extremities. Patient did have limited range of motion of his lumbar spine during today's visit. I have discussed with the patient regarding trying a caudal epidural. Risk and benefits were discussed with the patient. He would like to proceed forward with this plan of care. He is not on any blood thinners. We will schedule him for a caudal epidural. Patient has been instructed to contact the clinic with any concerns before the next appointment. Dr. Carranza has reviewed this note and agrees with this plan of care. This note was dictated using voice recognition software and make contain errors or omissions. [facility] Disclaimer: The information contained in this section may have been updated after the patient was seen, as this information can be updated by other users. 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
[2022-06-11 09:41] VITALS: BP 119/75; PULSE 66; RESP 18; O2SAT 95; BMI 30.2
== END ==
PROVIDERS: PCP Internal Medicine Adolescent Medicine; Visit Provider Nurse Practitioner Family
DX: M51.16 Intervertebral disc disorders with radiculopathy, lumbar region (principal); M96.1 Postlaminectomy syndrome, not elsewhere classified
CPT/HCPCS: 99212; G0463

== ENCOUNTER 2022-06-16 08:07 | Day surgery (SDC) | payer BC, MEDICARE, SELFPAY ==
[2022-06-16 08:40] VITALS: BP 142/78; PULSE 57; RESP 18; TEMP 36.4; O2SAT 98; BMI 30.2
[2022-06-16 08:57] VITALS: BP 189/75; PULSE 54; RESP 18; O2SAT 97
[2022-06-16 08:58] VITALS: BP 189/75; PULSE 54; RESP 18; O2SAT 97
[2022-06-16 09:10] VITALS: BP 117/65; PULSE 50; RESP 20
--- NOTE | 2022-06-16 09:30 | P.PCN_ITS ---
Procedure Date: 06/16/22 Time: 09:10 Anesthesiologist:: Miguelito Miles CRNA Complications:: None Pre-procedure Diagnosis:: Degenerative disc disease lumbar spine multilevels. Lumbar postlaminectomy syndrome. Lumbar post fusion syndrome lumbar radiculopathy Post-procedure Diagnosis:: Same Indications for Procedure:: Patient is a very pleasant 71-year-old male that comes our clinic today for caudal epidural steroid injection. Patient has had multiple lumbar epidural steroid injections with minimal to no relief. We will attempt to bring him relief with a caudal approach today. Patient rates his low back pain as well as bilateral hip and leg radicular symptoms 7/10. Procedure Details:: Details of the procedure were explained to the patient. The patient was taken the procedure room placed in the prone position on the fluoroscopy table. The area over the low lumbar spine and sacral area was cleaned using chlorhexidine as a cleansing solution. Using the fluoroscopy and lateral view a 25-gauge 3- 1/2 inch spinal needle was used to access the caudal epidural space with ease. At this time after negative aspiration 2 cc of contrast dye was used to confirm the needle position. Appropriate spread of the contrast was noted. At this time after negative aspiration 5 cc of normal saline, 80 mg of Depo-Medrol, 1 mL of 1% lidocaine was injected incrementally. Patient tolerated the procedure without difficulty. There were no complications. Plan and Disposition:: Patient was discharged without incident.
== END 2022-06-16 09:10 | disposition home or self-care (01) ==
PROVIDERS: PCP Internal Medicine Adolescent Medicine; Visit Provider Nurse Anesthetist, Certified Registered
DX: M51.16 Intervertebral disc disorders with radiculopathy, lumbar region (principal); M96.1 Postlaminectomy syndrome, not elsewhere classified
CPT/HCPCS: 62323; J1040; Q9966

== ENCOUNTER → 2022-06-27 09:17 | Outpatient (CLI) | payer BC, MEDICARE, SELFPAY ==
[2022-06-27 09:47] LABS: Basophils # 0.1 K/mm3 (0-0.2); Basophils % 1.2 % (0.1-2.0); Eosinophils # 0.3 K/mm3 (0.0-0.4); Eosinophils % 3.3 % (0.1-12.0); Hematocrit 40.8 % (42.0-52.0); Hemoglobin 13.6 g/dL (14.1-18.0); Lymphocytes % 53.3 % (10-50); Mean Corpuscular HGB Conc 33.4 g/dL (31.8-35.4); Mean Corpuscular Hemoglobin 30.1 pg (27.0-31.2); Mean Corpuscular Volume 90.3 fl (80-94); Mean Platelet Volume 8.8 fl (7.4-10.4); Monocytes # 0.3 K/mm3 (0.1-1.0); Monocytes % 4.4 % (1.7-9.3); Neutrophils # 2.8 K/mm3 (1.8-7.8); Neutrophils % 37.7 % (37.0-80.0); Platelet Count 306 K/mm3 (142-424); Red Blood Count 4.52 M/mm3 (4.60-6.20); Red Cell Distribution Width 14.1 % (11.5-17.5); White Blood Count 7.5 K/mm3 (4.8-10.8)
[2022-06-27 09:49] LABS: MANUAL DIFFERENTIAL MANUAL DIFFERENTIAL (MANUAL DIFF)
[2022-06-27 10:02] LABS: Hemoglobin A1C 8.5 % (4.0-6.0)
[2022-06-27 10:14] LABS: Chloride 104 mmol/L (98-107); Sodium 141 mmol/L (136-145)
[2022-06-27 10:15] LABS: Eosinophils % 1 % (0-3); Lymphocytes % 45 % (10-50); Monocytes % 7 % (2-9); Neutrophils % 47 % (42-76); Platelet Estimate Normal; Potassium 4.3 mmoL/L (3.5-5.1); RBC Morphology Normal; Total Cells Counted 100
[2022-06-27 10:17] LABS: Alanine Aminotransferase 48 U/L (12-78); Albumin Level 4.3 g/dl (3.5-5.0); Albumin/Globulin Ratio 1.7 (1.1-1.8); Alkaline Phosphatase 46 U/L (38-126); Aspartate Amino Transferase 43 U/L (17-59); Bilirubin,Total 0.4 mg/dl (0.2-1.3); Blood Urea Nitrogen 24 mg/dl (9-20); Calcium 9.3 mg/dl (8.4-10.2); Cholesterol 123 mg/dl (140-200); Estimated Glomerular Filt Rate 60 ml/min (>60); GFR (African American) 72 ML/MIN (>60); Globulin 2.6 g/dL (1.3-3.2); Glucose 153 mg/dl (74-100); Total Protein,Serum 6.9 g/dl (6.3-8.2); Triglycerides 66 mg/dl (30-150); VLDL Cholesterol 13 mg/dL (0-40)
[2022-06-27 10:18] LABS: Chol/HDL Ratio 2.2 (1-3.5); HDL Cholesterol 56 mg/dl (40-60)
[2022-06-27 10:28] LABS: Direct LDL Cholesterol 46.18 mg/dL (100-129)
[2022-06-27 11:06] LABS: Anion Gap 12.3 mEq/L (5-15); Carbon Dioxide 29 mmol/L (22.0-30.0)
== END ==
PROVIDERS: PCP Internal Medicine Adolescent Medicine; Visit Provider Nurse Practitioner Family
DX: I25.10 Atherosclerotic heart disease of native coronary artery without angina pectoris (principal); E11.9 Type 2 diabetes mellitus without complications; E78.5 Hyperlipidemia, unspecified; Z79.84 Long term (current) use of oral hypoglycemic drugs
CPT/HCPCS: 36415; 80053; 80061; 83036; 85007; 85025

== ENCOUNTER → 2022-07-01 08:37 | Outpatient (POV) | payer BC, MEDICARE, SELFPAY ==
--- NOTE | 2022-07-01 08:49 | EXP.PAIN.SOA ---
[facility] Pain Management SOAP Note Subjective:: Patient is a pleasant 71-year-old male who presents today for follow-up of caudal epidural steroid injection on 06/16/2022. We are currently treating the patient for degenerative disc disease of lumbar spine multilevels with lumbar radiculopathy symptoms, postlaminectomy syndrome. Today the patient states he has had at least 90% improvement and feels like he is still continuing to have relief. He rates his pain a 0 out of 10. Patient states he has been able to increase his activity and range of motion with decreased pain symptoms. Patient denies any new trauma or injury. Patient denies any change location or type of pain he experiences. Patient is currently managed on gabapentin 300 mg 3 times a day from an outside provider. Patient denies any side effects from this medication. He states this medication does help his pain symptoms. He is also prescribed a compounding cream. His Javed is [id number]. Its been reviewed and appropriate. Review of Systems: General: No recent weight changes, no fever, no sleep disturbances Respiratory: No cough, no shortness of air, no recurring pulmonary infections Cardiovascular/peripheral vascular: No chest pain, no palpitations, no edema, no shortness of breath Gastrointestinal: No new onset incontinence, normal bowel movements reported Genitourinary: No new onset incontinence Musculoskeletal: Low back pain Psychiatric: [Normal mood/affect] Neurological: [Denies weakness in extremities], [denies balance issues] Objective:: Physical Exam: General: Alert and oriented x3, no acute distress, pleasant and cooperative Lungs: Respirations even and unlabored, symmetrical chest expansion Eyes: PERRL Musculoskeletal: Flexion and extension of lumbar [spine] somewhat guarded secondary to pain, [antalgic gait noted] Neurological: Speech clear, no gross sensory deficit Assessment:: Degenerative disc disease of lumbar spine multilevels with lumbar radiculopathy symptoms, postlaminectomy syndrome Plan:: Patient has had significant improvement of his pain symptoms following his caudal epidural and does not need additional injective therapy at this time. Patient will return to clinic in 1 month for reevaluation of symptoms and follow-up. Patient has been instructed to contact the clinic with any concerns before the next appointment. Dr. Carranza has reviewed this note and agrees with this plan of care. This note was dictated using voice recognition software and make contain errors or omissions. [facility] Disclaimer: The information contained in this section may have been updated after the patient was seen, as this information can be updated by other users. 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
[2022-07-01 09:12] VITALS: BP 131/85; PULSE 69; RESP 18; O2SAT 98; BMI 30.2
[2022-07-01 10:09] LABS: Amphetamine/Metha Screen,Urine Negative ng/ml (<1000); Benzodiazepines Screen,Urine Negative ng/ml (<200)
[2022-07-01 10:10] LABS: Barbiturates Screen,Urine Negative ng/ml (<200); Cannabinoid Screen,Urine Negative ng/ml (<50)
[2022-07-01 10:11] LABS: Cocaine Screen,Urine Negative ng/ml (<300)
[2022-07-01 10:12] LABS: Methadone Screen,Urine Negative ng/ml (<300)
[2022-07-01 10:22] LABS: Opiate Screen,Urine Negative ng/ml (<300); Phencyclidine Screen,Urine Negative ng/ml (<25)
[2022-07-04 23:47] LABS: Opiates Negative (Cutoff=100)
== END ==
PROVIDERS: PCP Internal Medicine Adolescent Medicine; Visit Provider Nurse Practitioner Family
DX: M51.16 Intervertebral disc disorders with radiculopathy, lumbar region (principal); M96.1 Postlaminectomy syndrome, not elsewhere classified
CPT/HCPCS: 80305; 80361; 80365; 99212; G0463; G0480

== ENCOUNTER 2022-07-21 08:50 | Day surgery (SDC) | payer BC, MEDICARE, SELFPAY ==
[2022-07-21 09:05] VITALS: BP 144/92; PULSE 66; RESP 18; TEMP 36.4; O2SAT 100; BMI 30.2
[2022-07-21 09:29] VITALS: BP 143/80; PULSE 57; RESP 18; O2SAT 97
[2022-07-21 09:30] VITALS: BP 143/80; PULSE 57; RESP 18; O2SAT 98
[2022-07-21 09:33] VITALS: BP 115/69; PULSE 66; RESP 18; O2SAT 100
--- NOTE | 2022-07-21 09:58 | P.PCN_ITS ---
Procedure Date: 07/21/22 Time: 09:20 Anesthesiologist:: Miguelito Miles CRNA Complications:: None Pre-procedure Diagnosis:: Degenerative disease lumbar spine multilevels. Lumbar radiculopathy symptoms. Lumbar postlaminectomy syndrome. Post-procedure Diagnosis:: Same. Indications for Procedure:: Patient is a pleasant 71-year-old male that comes our clinic today for a second caudal epidural steroid injection. Patient has significant provement after his first. Patient was not receiving much relief with traditional lumbar intra laminar epidurals. He describes low back pain as constant, dull, aching with bilateral hip and leg radicular symptoms. Patient is status post multiple lumbar surgeries. Procedure Details:: Details of the procedure were explained to the patient.? The patient was taken the procedure room placed in the prone position on the fluoroscopy table.? The area over the low lumbar spine and sacral area was cleaned using chlorhexidine as a cleansing solution.? Using the fluoroscopy and lateral view a 25-gauge 3- 1/2 inch spinal needle was used to access the caudal epidural space with ease.? At this time after negative aspiration 2 cc of contrast dye was used to confirm the needle position.? Appropriate spread of the contrast was noted.? At this time after negative aspiration 5 cc of normal saline, 80 mg of Depo-Medrol, 1 mL of 1% lidocaine was injected incrementally.? Patient tolerated the procedure without difficulty.? There were no complications. Plan and Disposition:: Patient was discharged without incident.
== END 2022-07-21 09:33 | disposition home or self-care (01) ==
LOC: SC.PAINP 08:51
PROVIDERS: PCP Internal Medicine Adolescent Medicine; Visit Provider Nurse Anesthetist, Certified Registered
DX: M51.16 Intervertebral disc disorders with radiculopathy, lumbar region (principal); M96.1 Postlaminectomy syndrome, not elsewhere classified
CPT/HCPCS: 62323; J1030; J1040

== ENCOUNTER → 2022-08-03 09:36 | Outpatient (POV) | payer BC, MEDICARE, SELFPAY ==
[2022-08-03 09:54] VITALS: BP 131/80; PULSE 55; RESP 18; O2SAT 97; BMI 29.3
--- NOTE | 2022-08-03 10:01 | EXP.PAIN.SOA ---
[facility] Pain Management SOAP Note Subjective:: Patient is a pleasant 71-year-old male who presents today for follow-up of caudal epidural steroid injection on 07/21/2022. We are currently treating the patient for degenerative disc disease of the lumbar spine with lumbar radiculopathy symptoms, postlaminectomy syndrome. Today he rates his pain a 2 out of 10. Patient states this injection did provide 90% relief however it only lasted approximately 1 week. Patient states following that week he has had significant pain but he does believe it is more his hips that are causing the issue. Patient states he has had imaging in the past and was told that they are misaligned from one another and could be causing some of his issues. Patient is currently managed with gabapentin 300 mg 3 times a day from an outside provider. Patient denies any side effects from this medication. He states this medication does help. His Javed is [id number]. Its been reviewed and appropriate. Review of Systems: General: No recent weight changes, no fever, no sleep disturbances Respiratory: No cough, no shortness of air, no recurring pulmonary infections Cardiovascular/peripheral vascular: No chest pain, no palpitations, no edema, no shortness of breath Gastrointestinal: No new onset incontinence, normal bowel movements reported Genitourinary: No new onset incontinence Musculoskeletal: Low back pain, hip pain Psychiatric: [Normal mood/affect] Neurological: [Denies weakness in extremities], [denies balance issues] Objective:: Physical Exam: General: Alert and oriented x3, no acute distress, pleasant and cooperative Lungs: Respirations even and unlabored, symmetrical chest expansion Eyes: PERRL Musculoskeletal: Flexion and extension of lumbar [spine] somewhat guarded secondary to pain, [antalgic gait noted] Neurological: Speech clear, no gross sensory deficit Assessment:: Degenerative disc disease of lumbar spine with lumbar radiculopathy symptoms, postlaminectomy syndrome, bilateral hip pain Plan:: Patient is experiencing significant pain in hands bilateral hips. I have discussed with the patient regarding ordering x-ray imaging and patient agrees with this plan of care. We will order bilateral hip x-rays and the patient will follow-up back in office following for reevaluation of symptoms and plan of care. Patient has been instructed to contact the clinic with any concerns before the next appointment. Dr. Carranza has reviewed this note and agrees with this plan of care. This note was dictated using voice recognition software and make contain errors or omissions. [facility] Disclaimer: The information contained in this section may have been updated after the patient was seen, as this information can be updated by other users. 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
== END ==
PROVIDERS: PCP Internal Medicine Adolescent Medicine; Visit Provider Nurse Practitioner Family
DX: M51.16 Intervertebral disc disorders with radiculopathy, lumbar region (principal); M96.1 Postlaminectomy syndrome, not elsewhere classified; M25.551 Pain in right hip; M25.552 Pain in left hip
CPT/HCPCS: 99212; G0463

== ENCOUNTER → 2022-08-03 10:11 | Outpatient (CLI) | payer BC, MEDICARE, SELFPAY ==
--- NOTE | 2022-08-03 10:15 | XR_ITS ---
FINAL REPORT CLINICAL HISTORY: HIP PAIN FINDINGS: LEFT HIP Two views of the left hip with an AP pelvis were obtained. There is posterior fusion hardware bridging L4 through S1. There is no acute fracture or dislocation. The joint spaces appear normal. The femoral head has a normal smooth contour. The visualized bony structures are well aligned. No soft tissue abnormality is seen. IMPRESSION: No acute bony abnormality. Reviewed, Interpreted and Dictated by Maxime Hussein MD Transcribed by Khloe Morgan Authenticated and [facility]
--- NOTE | 2022-08-03 10:15 | XR_ITS ---
FINAL REPORT CLINICAL HISTORY: HIP PAIN FINDINGS: RIGHT HIP Two views of the right hip were obtained. There is posterior fusion hardware in the lower lumbar spine. There is no acute fracture or dislocation. The joint spaces appear normal. The femoral head has a normal smooth contour. The visualized bony structures are well aligned. No soft tissue abnormality is seen. IMPRESSION: No acute bony abnormality. Reviewed, Interpreted and Dictated by Maxime Hussein MD Transcribed by Khloe Morgan Authenticated and [facility]
== END ==
PROVIDERS: PCP Internal Medicine Adolescent Medicine; Visit Provider Nurse Practitioner Family
DX: M25.552 Pain in left hip (principal); M25.551 Pain in right hip
CPT/HCPCS: 73502

== ENCOUNTER → 2022-09-30 11:17 | Outpatient (POV) | payer BC, MEDICARE, SELFPAY ==
[2022-09-30 11:46] VITALS: BP 120/67; PULSE 57; RESP 18; O2SAT 99; BMI 31.7
--- NOTE | 2022-09-30 11:51 | EXP.PAIN.SOA ---
[facility] Pain Management SOAP Note Subjective:: Patient is a pleasant 72-year-old male who presents today for follow-up. We are currently treating the patient for degenerative disc disease of lumbar spine with lumbar radiculopathy symptoms, postlaminectomy syndrome. Today he rates his pain a 8 out of 10. Patient states he was doing karate recently and felt like he might have aggravated his symptoms. Patient denies any new change to the location or type of pain he experiences. Patient states he still has the aching, throbbing pain in his low back. He does state this pain interferes with his ability to perform activities of daily living such as cooking and cleaning and even working on the job. 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 Patient is currently managed with gabapentin 300 mg 3 times a day from an outside provider. Patient denies any side effects from this medication. Patient has gotten multiple lumbar epidurals and caudal epidurals that did provide significant relief. He is interested in repeating an injection. His Javed is [id number]. Its been reviewed and appropriate. Review of Systems: General: No recent weight changes, no fever, no sleep disturbances Respiratory: No cough, no shortness of air, no recurring pulmonary infections Cardiovascular/peripheral vascular: No chest pain, no palpitations, no edema, no shortness of breath Gastrointestinal: No new onset incontinence, normal bowel movements reported Genitourinary: No new onset incontinence Musculoskeletal: Low back pain Psychiatric: [Normal mood/affect] Neurological: [Denies weakness in extremities], [denies balance issues] Objective:: Physical Exam: General: Alert and oriented x3, no acute distress, pleasant and cooperative Lungs: Respirations even and unlabored, symmetrical chest expansion Eyes: PERRL Musculoskeletal: Flexion and extension of lumbar [spine] somewhat guarded secondary to pain, [antalgic gait noted] Neurological: Speech clear, no gross sensory deficit Assessment:: Degenerative disc disease of lumbar spine with lumbar radiculopathy symptoms, postlaminectomy syndrome Plan:: Patient is experiencing worsening pain in his low back with limited range of motion of his lumbar spine. I have discussed with the patient regarding scheduling him for a caudal epidural. Risk and benefits were discussed with the patient and he would like to proceed forward with this plan of care. Patient has gotten significant improvements of upwards of 90% following a caudal epidural in the past. I will also order the patient methocarbamol 500 mg at bedtime and provide a 1 month supply of this medication. We will schedule him for a caudal epidural. Patient has been instructed to contact the clinic with any concerns before the next appointment. Dr. Carranza has reviewed this note and agrees with this plan of care. This note was dictated using voice recognition software and make contain errors or omissions. [facility] Disclaimer: The information contained in this section may have been updated after the patient was seen, as this information can be updated by other users. 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
== END | disposition home or self-care (01) ==
PROVIDERS: PCP Internal Medicine Adolescent Medicine; Visit Provider Nurse Practitioner Family
DX: M51.16 Intervertebral disc disorders with radiculopathy, lumbar region (principal); M96.1 Postlaminectomy syndrome, not elsewhere classified
CPT/HCPCS: 99212; G0463

== ENCOUNTER 2022-10-13 07:50 | Day surgery (SDC) | payer BC, MEDICARE, SELFPAY ==
[2022-10-13 08:06] VITALS: BP 139/78; PULSE 57; RESP 18; TEMP 36.1; O2SAT 98; BMI 28.8
[2022-10-13 08:27] VITALS: BP 134/76; PULSE 58; RESP 18; O2SAT 98
[2022-10-13 08:29] VITALS: BP 134/76; PULSE 58; RESP 18; O2SAT 98
[2022-10-13 08:31] VITALS: BP 140/69; PULSE 53; RESP 18; O2SAT 98
--- NOTE | 2022-10-13 08:31 | EXP.PAIN.PRO ---
Procedure Date: 10/13/22 Time: 08:10 Anesthesiologist:: Miguelito Miles CRNA Complications:: None Pre-procedure Diagnosis:: Degenerative disc disease lumbar spine multilevels. Lumbar radiculopathy. Lumbar postlaminectomy syndrome. Lumbar spondylosis Post-procedure Diagnosis:: Same. Indications for Procedure:: This patient is a very pleasant 72-year-old male that comes our clinic today for caudal epidural steroid injection. Patient has had multiple lumbar back surgeries. Lumbar fusion. Continues with some low back pain at times. However, his main complaint is bilateral hip and leg radicular symptoms. Procedure Details:: Procedure: Caudal epidural steroid injection under fluoroscopy Informed consent was obtained and the risks and benefits of the procedure were explained to the patient. The patient was taken to the procedure room and noninvasive monitors placed, including noninvasive blood pressure cuff and pulse oximeter. The back was viewed using C-arm Fluoroscopy and prepped using Chloraprep as a cleansing solution and the caudal epidural space was visualized using fluoroscopy in a lateral position. Skin and subcutaneous tissues were anesthetized using lidocaine 1.5% and a 25-gauge needle. After this, an 22-gauge spinal needle was placed into the caudal epidural space and advanced using fluoroscopic guidance. After confirmation of needle placement in the caudal space, with dye, a solution containing normal saline, 3 mL and Depo-Medrol 80 mg and 1 mL of 1% lidocaine were incrementally injected into the caudal epidural space. The patient tolerated the procedure well with no complications. The patient was observed in the Pain Clinic and then discharged home neurologically intact. Plan and Disposition:: Patient was discharged without incident
== END 2022-10-13 08:31 | disposition home or self-care (01) ==
PROVIDERS: PCP Internal Medicine Adolescent Medicine; Visit Provider Nurse Anesthetist, Certified Registered
DX: M51.16 Intervertebral disc disorders with radiculopathy, lumbar region (principal); M47.26 Other spondylosis with radiculopathy, lumbar region; M96.1 Postlaminectomy syndrome, not elsewhere classified
CPT/HCPCS: 62323; J1030; Q9966

== ENCOUNTER → 2022-10-29 08:46 | Outpatient (POV) | payer BC, MEDICARE, SELFPAY ==
--- NOTE | 2022-10-29 08:56 | EXP.PAIN.SOA ---
[facility] Pain Management SOAP Note Subjective:: Patient is a pleasant 72-year-old male who presents today for follow-up of caudal epidural steroid injection on 10/13/2022. We are currently treating the patient for degenerative disc disease of lumbar spine multilevels with lumbar radiculopathy symptoms, postlaminectomy syndrome lumbar spine, lumbar spondylosis. Patient states he did have at least 50% improvement with this injection however approximately 1 week later he did have sharp shooting pains that went from his low back into his hips and down his leg stopping at his knees. He does describe this as a tingling sensation almost like an electrical shock. He states it is aggravated with certain activities. It is affecting his ability to perform activities of daily living such as cooking and cleaning. Patient has tried methocarbamol 500 mg at bedtime in the past however he did not get significant relief. He is currently managed with gabapentin 300 mg 3 times a day from outside provider. He states this medication does help however he frequently ends up taking ibuprofen in addition to it with minimal relief. Patient denies any heart or kidney issues. His Javed is [id number]. Its been reviewed and appropriate. Review of Systems: General: No recent weight changes, no fever, no sleep disturbances Respiratory: No cough, no shortness of air, no recurring pulmonary infections Cardiovascular/peripheral vascular: No chest pain, no palpitations, no edema, no shortness of breath Gastrointestinal: No new onset incontinence, normal bowel movements reported Genitourinary: No new onset incontinence Musculoskeletal: Low back pain, leg pain Psychiatric: [Normal mood/affect] Neurological: [Denies weakness in extremities], [denies balance issues] Objective:: Physical Exam: General: Alert and oriented x3, no acute distress, pleasant and cooperative Lungs: Respirations even and unlabored, symmetrical chest expansion Eyes: PERRL Musculoskeletal: Flexion and extension of lumbar [spine] somewhat guarded secondary to pain, [antalgic gait noted] extreme point tenderness bilateral SIs with positive bilateral Anita's, Patrice's, Gaenslen's, compression and distraction exam Neurological: Speech clear, no gross sensory deficit Assessment:: Degenerative disc disease of lumbar spine multilevels with lumbar radiculopathy symptoms, postlaminectomy syndrome lumbar spine, lumbar spondylosis Plan:: Patient is experiencing significant pain in his low back with limited range of motion. Patient did have extreme point tenderness along his bilateral SIs with positive bilateral Anita's, Patrice's, Gaenslen's, compression and distraction exam. I have discussed with the patient that he may benefit from bilateral SI injections. Risk and benefits were discussed with the patient and he would like to proceed forward with this plan of care. I will also order the patient diclofenac 75 mg twice daily and provide a 14-day supply of this medication. I have counseled the patient to discontinue all other NSAIDs while being on this medication and to take it with food to minimize GI upset. We will schedule the patient for bilateral SI injections. Patient has been instructed to contact the clinic with any concerns before the next appointment. Dr. Carranza has reviewed this note and agrees with this plan of care. This note was dictated using voice recognition software and make contain errors or omissions. [facility] Disclaimer: The information contained in this section may have been updated after the patient was seen, as this information can be updated by other users. Medical History Diabetes HTN (hypertension) Family History Other No significant family history Social History Smoking Status: Never smoker alcohol intake: never substance use type: de
[2022-10-29 09:17] VITALS: BP 125/71; PULSE 57; RESP 18; O2SAT 97; BMI 30.8
== END | disposition home or self-care (01) ==
PROVIDERS: PCP Internal Medicine Adolescent Medicine; Visit Provider Nurse Practitioner Family
DX: M51.16 Intervertebral disc disorders with radiculopathy, lumbar region (principal); M47.26 Other spondylosis with radiculopathy, lumbar region; M96.1 Postlaminectomy syndrome, not elsewhere classified
CPT/HCPCS: 99212; G0463

== ENCOUNTER 2022-11-10 07:50 | Day surgery (SDC) | payer BC, MEDICARE, SELFPAY ==
[2022-11-10 08:09] VITALS: BP 126/70; PULSE 55; RESP 18; TEMP 36.6; O2SAT 90; BMI 28.6
[2022-11-10 08:29] VITALS: BP 129/69; PULSE 60; RESP 18; O2SAT 98
[2022-11-10 08:30] VITALS: BP 129/69; PULSE 60; RESP 18; O2SAT 98
--- NOTE | 2022-11-10 08:32 | P.PCN_ITS ---
Procedure Date: 11/10/22 Time: 08:20 Anesthesiologist:: Miguelito Miles CRNA Complications:: None Pre-procedure Diagnosis:: Degenerative disc disease lumbar spine multilevels. Lumbar radiculopathy. Lumbar postlaminectomy syndrome. Bilateral sacroiliitis. Post-procedure Diagnosis:: Same. Indications for Procedure:: This patient is a very pleasant 72-year-old male that comes our clinic today for bilateral sacroiliac joint injections. He has extreme point tenderness over the bilateral sacroiliac joints. Patient also is status post extensive lumbar fusion resulting in several lumbar surgeries. He has had some significant improvement with previous caudal epidural steroid injections. Procedure Details:: Procedure: Bilateral sacroiliac joint injections under fluoroscopy Informed consent was obtained and the risks and benefits of the procedure were explained to the patient.~ The patient was taken to the procedure room and noninvasive monitors were placed including a noninvasive blood pressure cuff and pulse oximeter.~ The patient was placed prone on the procedure table. Both hips were cleansed using Betadine as a cleansing solution. C-arm fluoroscopy was used to view the right sacroiliac joint.~ The skin and subcutaneous tissues were anesthetized using lidocaine 1.5% and a 25-gauge needle.~ After this, a 22-gauge spinal needle was inserted under fluoroscopic guidance into the inferior aspect of the right sacroiliac joint.~ Omnipaque dye was injected and good spread was seen throughout the joint.~ After this, approximately 5 mL of bupivacaine, 0.25% and Depo-Medrol, 40 mg was incrementally injected into the right sacroiliac joint. We then moved to the left sacroiliac joint.~ The skin and subcutaneous tissues were anesthetized using lidocaine 1.5% and a 25-gauge needle.~ After this, a 22- gauge spinal needle was inserted under fluoroscopic guidance into the inferior aspect of the left sacroiliac joint.~ Omnipaque dye was injected and good spread was seen throughout the joint. After this, approximately 5 mL of bupivacaine, 0.25% and Depo-Medrol, 40 mg was incrementally injected into the left sacroiliac joint.~ The patient tolerated the procedure well with no complications. The patient was observed in the Pain Clinic and then was discharged home neurologically intact. Plan and Disposition:: Patient was discharged without incident.
[2022-11-10 08:36] VITALS: BP 119/63; PULSE 55; RESP 18; O2SAT 92
== END 2022-11-10 08:36 | disposition home or self-care (01) ==
PROVIDERS: PCP Internal Medicine Adolescent Medicine; Visit Provider Nurse Anesthetist, Certified Registered
DX: M46.1 Sacroiliitis, not elsewhere classified (principal); M51.16 Intervertebral disc disorders with radiculopathy, lumbar region; M96.1 Postlaminectomy syndrome, not elsewhere classified
CPT/HCPCS: 27096; G0260; J1040

== ENCOUNTER → 2022-12-02 08:33 | Outpatient (POV) | payer BC, MEDICARE, SELFPAY ==
[2022-12-02 08:46] VITALS: BP 167/68; PULSE 66; RESP 18; O2SAT 97; BMI 28.8
--- NOTE | 2022-12-02 09:20 | EXP.PAIN.SOA ---
[facility] Pain Management SOAP Note Subjective:: Patient is a pleasant 72-year-old male who presents today for follow-up of bilateral SI injections on 11/10/2022. We are currently treating the patient for degenerative disc disease of the lumbar spine with lumbar radiculopathy symptoms, postlaminectomy syndrome, lumbar spondylosis, bilateral sacroiliitis. Today he states he has had significant improvement following these injections of at least 50 to 75%. He does rate his pain a 4 out of 10 today and states that he feels like they are wearing off. He does state his pain is still in his low back and hips bilaterally. He does describe this as an aching, throbbing sensation with numbness and tingling that is worse with increased activity. He cannot tolerate prolonged sitting, standing or walking due to the pain. He states it does interfere with his ability to perform activities of daily living such as cooking and cleaning. 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 He does have more issues when walking up or down stairs or getting into his bed he states. Patient is currently managed with gabapentin 300 mg 3 times a day and methocarbamol 500 mg at bedtime from our office. Patient denies any side effects from these medications. He is requesting a refill of his methocarbamol. At our last visit we did prescribe him diclofenac 75 mg twice daily however he states he did not notice significant improvement. Patient has been going to the chiropractor as well. He is [facility] is [id number]. Its been reviewed and appropriate. Review of Systems: General: No recent weight changes, no fever, no sleep disturbances Respiratory: No cough, no shortness of air, no recurring pulmonary infections Cardiovascular/peripheral vascular: No chest pain, no palpitations, no edema, no shortness of breath Gastrointestinal: No new onset incontinence, normal bowel movements reported Genitourinary: No new onset incontinence Musculoskeletal: Low back pain, bilateral hip pain Psychiatric: [Normal mood/affect] Neurological: [Denies weakness in extremities], [denies balance issues] Objective:: Physical Exam: General: Alert and oriented x3, no acute distress, pleasant and cooperative Lungs: Respirations even and unlabored, symmetrical chest expansion Eyes: PERRL Musculoskeletal: Flexion and extension of lumbar [spine] somewhat guarded secondary to pain, [antalgic gait noted] extreme point tenderness along bilateral SIs with positive bilateral Anita's, Patrice's, Gaenslen's, compression and distraction exam Neurological: Speech clear, no gross sensory deficit Assessment:: degenerative disc disease of the lumbar spine with lumbar radiculopathy symptoms, postlaminectomy syndrome, lumbar spondylosis, bilateral sacroiliitis Plan:: Patient had significant improvement following his bilateral SI injections however he is back to his baseline. Patient is experiencing extreme point tenderness along his bilateral SIs with positive bilateral Anita's, Patrice's, Gaenslen's, compression and distraction exam. I have discussed with the patient that he may benefit from repeat bilateral SI injections. He would like to proceed forward with this plan of care. We will also send in a refill of his methocarbamol 500 mg at bedtime and provide a 3 month supply of this medication. Patient will be scheduled for bilateral SI injections. Patient has been instructed to contact the clinic with any concerns before the next appointment. Dr. Carranza has reviewed this note and agrees with this plan of care. This note was dictated using voice recognition software and make contain errors or omissions. [facility] Disclaimer: The information contained in this section may have been updated after the patient was seen, as this information can be updated by other users. Medical History Diabetes HTN (hypertension) Family History (Reviewed
== END | disposition home or self-care (01) ==
PROVIDERS: PCP Internal Medicine Adolescent Medicine; Visit Provider Nurse Practitioner Family
DX: M51.16 Intervertebral disc disorders with radiculopathy, lumbar region (principal); M47.26 Other spondylosis with radiculopathy, lumbar region; M96.1 Postlaminectomy syndrome, not elsewhere classified; M46.1 Sacroiliitis, not elsewhere classified
CPT/HCPCS: 99212; G0463

== ENCOUNTER 2022-12-08 09:56 | Day surgery (SDC) | payer BC, MEDICARE, SELFPAY ==
[2022-12-08 10:10] VITALS: BP 105/55; PULSE 48; RESP 18; TEMP 36.6; O2SAT 95; BMI 29.5
[2022-12-08 10:25] VITALS: BP 123/74; PULSE 53; RESP 18; O2SAT 97
[2022-12-08 10:35] VITALS: BP 121/64; PULSE 51; RESP 18; O2SAT 95
--- NOTE | 2022-12-08 10:39 | P.PCN_ITS ---
Procedure Date: 12/08/22 Time: 10:30 Anesthesiologist:: Miguelito Miles CRNA Complications:: None Pre-procedure Diagnosis:: Bilateral sacroiliitis. Degenerative disc disease lumbar spine multilevels. Lumbar radiculopathy. Lumbar postlaminectomy syndrome. Post-procedure Diagnosis:: Same. Indications for Procedure:: Very pleasant 72-year-old male that comes our clinic today with bilateral low lumbar back pain as well as posterior hip pain. Patient describes pain as constant, dull, aching. Patient has difficulty ambulating due to pain in the posterior hip area bilaterally. Patient rates his pain 7/10. Procedure Details:: Procedure: Bilateral sacroiliac joint injections under fluoroscopy Informed consent was obtained and the risks and benefits of the procedure were explained to the patient.~ The patient was taken to the procedure room and noninvasive monitors were placed including a noninvasive blood pressure cuff and pulse oximeter.~ The patient was placed prone on the procedure table. Both hips were cleansed using Betadine as a cleansing solution. C-arm fluoroscopy was used to view the right sacroiliac joint.~ The skin and subcutaneous tissues were anesthetized using lidocaine 1.5% and a 25-gauge needle.~ After this, a 22-gauge spinal needle was inserted under fluoroscopic guidance into the inferior aspect of the right sacroiliac joint.~ Omnipaque dye was injected and good spread was seen throughout the joint.~ After this, approximately 5 mL of bupivacaine, 0.25% and Depo-Medrol, 40 mg was incrementally injected into the right sacroiliac joint. We then moved to the left sacroiliac joint.~ The skin and subcutaneous tissues were anesthetized using lidocaine 1.5% and a 25-gauge needle.~ After this, a 22- gauge spinal needle was inserted under fluoroscopic guidance into the inferior aspect of the left sacroiliac joint.~ Omnipaque dye was injected and good spread was seen throughout the joint. After this, approximately 5 mL of bupivacaine, 0.25% and Depo-Medrol, 40 mg was incrementally injected into the left sacroiliac joint.~ The patient tolerated the procedure well with no complications. The patient was observed in the Pain Clinic and then was discharged home neurologically intact. Plan and Disposition:: Patient was discharged without incident.
== END 2022-12-08 10:35 | disposition home or self-care (01) ==
PROVIDERS: PCP Internal Medicine Adolescent Medicine; Visit Provider Nurse Anesthetist, Certified Registered
DX: M46.1 Sacroiliitis, not elsewhere classified (principal); M51.16 Intervertebral disc disorders with radiculopathy, lumbar region; M96.1 Postlaminectomy syndrome, not elsewhere classified; M25.551 Pain in right hip; M25.552 Pain in left hip
CPT/HCPCS: 27096; G0260; J1040

== ENCOUNTER → 2022-12-24 10:41 | Outpatient (POV) | payer BC, MEDICARE, SELFPAY ==
[2022-12-24 10:57] VITALS: BP 116/71; PULSE 60; RESP 18; O2SAT 98; BMI 28.7
--- NOTE | 2022-12-24 11:00 | EXP.PAIN.SOA ---
[facility] Pain Management SOAP Note Subjective:: Patient is a pleasant 72-year-old male who presents today for follow-up bilateral SI injection on 12/08/2022. We are currently treating the patient for degenerative disc disease of lumbar spine with lumbar radiculopathy symptoms, lumbar postlaminectomy syndrome, lumbar spondylosis, bilateral sacroiliitis. Today he states he has had at least 60% to 80% improvement following this injection and then he rates his pain an occasional 2 out of 10. Patient does state that he is continuing to go to the chiropractor and this is seeming to help as well. Patient states he has been able to increase his activity with decreased pain symptoms. Patient is currently managed with gabapentin 300 mg 3 times a day and methocarbamol 500 mg at bedtime. Patient denies any side effects from these medications. His Javed is [id number]. Its been reviewed and appropriate. Review of Systems: General: No recent weight changes, no fever, no sleep disturbances Respiratory: No cough, no shortness of air, no recurring pulmonary infections Cardiovascular/peripheral vascular: No chest pain, no palpitations, no edema, no shortness of breath Gastrointestinal: No new onset incontinence, normal bowel movements reported Genitourinary: No new onset incontinence Musculoskeletal: Low back pain Psychiatric: [Normal mood/affect] Neurological: [Denies weakness in extremities], [denies balance issues] Objective:: Physical Exam: General: Alert and oriented x3, no acute distress, pleasant and cooperative Lungs: Respirations even and unlabored, symmetrical chest expansion Eyes: PERRL Musculoskeletal: Flexion and extension of lumbar [spine] somewhat guarded secondary to pain, [antalgic gait noted] Neurological: Speech clear, no gross sensory deficit Assessment:: Degenerative disc disease of lumbar spine with lumbar radiculopathy symptoms, lumbar postlaminectomy syndrome, lumbar spondylosis, bilateral sacroiliitis Plan:: Patient continues to get significant relief following his bilateral SI injections and does not require any additional injective therapy at this time. I will refill his methocarbamol 500 mg at bedtime and gabapentin 300 mg 3 times a day and provide a 1 month supply of this medication. Patient will return to clinic in 1 month for reevaluation of symptoms and medication refill. Patient has been instructed to contact the clinic with any concerns before the next appointment. Dr. Carranza has reviewed this note and agrees with this plan of care. This note was dictated using voice recognition software and make contain errors or omissions. [facility] Disclaimer: The information contained in this section may have been updated after the patient was seen, as this information can be updated by other users. 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
== END | disposition home or self-care (01) ==
PROVIDERS: Visit Provider Nurse Practitioner Family
DX: M51.16 Intervertebral disc disorders with radiculopathy, lumbar region (principal); M96.1 Postlaminectomy syndrome, not elsewhere classified; M47.26 Other spondylosis with radiculopathy, lumbar region; M46.1 Sacroiliitis, not elsewhere classified
CPT/HCPCS: 99212; G0463

== ENCOUNTER → 2023-01-18 08:27 | Outpatient (POV) | payer BC, MEDICARE, SELFPAY ==
[2023-01-18 08:36] VITALS: BP 132/79; PULSE 63; RESP 20; O2SAT 100; BMI 29.5
--- NOTE | 2023-01-18 08:39 | EXP.PAIN.SOA ---
[facility] Pain Management SOAP Note Subjective:: Patient is a pleasant 72-year-old male who presents today for 1 month follow-up. We are currently treating the patient for degenerative disc disease of lumbar spine with lumbar radiculopathy symptoms, postlaminectomy syndrome, lumbar spondylosis, bilateral sacroiliitis. Today he rates his pain a 2 out of 10. He denies any new trauma or injury. He denies any change to location or type of pain he experiences. Patient did previously have bilateral SI injections back at the beginning of November that did provide at least 80% improvement lasting up until this point. Patient does state that he has been experiencing more pain with prolonged sitting, standing or walking. He does describe this as an aching, throbbing sensation that is worse with increased activity. He does state it interferes with his ability to perform activities of daily living such as cooking and cleaning. Patient is currently managed with gabapentin 300 mg 3 times a day and methocarbamol 500 mg at bedtime. He denies any side effects from this medication. His Javed is [id number]. Its been reviewed and appropriate. Review of Systems: General: No recent weight changes, no fever, no sleep disturbances Respiratory: No cough, no shortness of air, no recurring pulmonary infections Cardiovascular/peripheral vascular: No chest pain, no palpitations, no edema, no shortness of breath Gastrointestinal: No new onset incontinence, normal bowel movements reported Genitourinary: No new onset incontinence Musculoskeletal: Low back pain, bilateral hip pain Psychiatric: [Normal mood/affect] Neurological: [Denies weakness in extremities], [denies balance issues] Objective:: Physical Exam: General: Alert and oriented x3, no acute distress, pleasant and cooperative Lungs: Respirations even and unlabored, symmetrical chest expansion Eyes: PERRL Musculoskeletal: Flexion and extension of lumbar [spine] somewhat guarded secondary to pain, [antalgic gait noted] point tenderness at bilateral SIs with positive bilateral Anita's, Patrice's, Gaenslen's, compression and distraction exam Neurological: Speech clear, no gross sensory deficit Assessment:: Degenerative disc disease of lumbar spine with lumbar radiculopathy symptoms, postlaminectomy syndrome, lumbar spondylosis, bilateral sacroiliitis Plan:: Patient is experiencing worsening pain in his low back with radiating symptoms to his bilateral hips. Patient did have point tenderness along his bilateral SIs with positive bilateral Anita's, Patrice's, Gaenslen's, compression and distraction exam. I have discussed with the patient that he may benefit from bilateral SI injection. Patient has had previous injections that did provide 80% improvement lasting over a month and a half. Risk and benefits of this procedure were explained to the patient and he would like to proceed forward with this plan of care. I will refill the patient's gabapentin 300 mg 3 times a day and methocarbamol 500 mg at bedtime and provide a 1 month supply of this medication. Patient will be scheduled for bilateral SI injections. Patient has been instructed to contact the clinic with any concerns before the next appointment. Dr. Carranza has reviewed this note and agrees with this plan of care. This note was dictated using voice recognition software and make contain errors or omissions. [facility] Disclaimer: The information contained in this section may have been updated after the patient was seen, as this information can be updated by other users. Medical History Diabetes HTN (hypertension) Family History Other No significant family history Social History Smoking Status: Never smoker alcohol intake: never substance use type: denies use current occupational status: employed Travel in
== END | disposition home or self-care (01) ==
PROVIDERS: Visit Provider Nurse Practitioner Family
DX: M51.16 Intervertebral disc disorders with radiculopathy, lumbar region (principal); M96.1 Postlaminectomy syndrome, not elsewhere classified; M47.816 Spondylosis without myelopathy or radiculopathy, lumbar region; M46.1 Sacroiliitis, not elsewhere classified
CPT/HCPCS: 99212; G0463

== ENCOUNTER 2023-02-05 08:01 | Day surgery (SDC) | payer BC, MEDICARE, SELFPAY ==
[2023-02-05 08:20] VITALS: BP 115/71; PULSE 55; RESP 18; TEMP 36.4; O2SAT 94; BMI 29.5
[2023-02-05 08:27] VITALS: BP 122/71; PULSE 53; RESP 18; O2SAT 99
[2023-02-05 08:28] VITALS: BP 122/71; PULSE 53; RESP 18; O2SAT 99
--- NOTE | 2023-02-05 08:30 | P.PCN_ITS ---
Procedure Date: 02/05/23 Time: 08:20 Anesthesiologist:: Miguelito Miles CRNA Complications:: None Pre-procedure Diagnosis:: Bilateral sacroiliitis. Degenerative disc lumbar spine multilevels. Lumbar radiculopathy. Lumbar postlaminectomy syndrome. Post-procedure Diagnosis:: Same. Indications for Procedure:: Patient is a very pleasant 72-year-old male who comes our clinic today for bilateral sacroiliac joint injection. Patient has had this in the past with significant improvement terms of his overall low back pain, posterior hip pain bilaterally and bilateral lumbar radiculopathy. He rates his pain 7/10. Patient reports having difficulty transitioning from sitting to standing. Di fficulty with flexion, extension, left and right rotation Procedure Details:: Procedure: Bilateral sacroiliac joint injections under fluoroscopy Informed consent was obtained and the risks and benefits of the procedure were explained to the patient.~ The patient was taken to the procedure room and noninvasive monitors were placed including a noninvasive blood pressure cuff and pulse oximeter.~ The patient was placed prone on the procedure table. Both hips were cleansed using Betadine as a cleansing solution. C-arm fluoroscopy was used to view the right sacroiliac joint.~ The skin and subcutaneous tissues were anesthetized using lidocaine 1.5% and a 25-gauge needle.~ After this, a 22-gauge spinal needle was inserted under fluoroscopic guidance into the inferior aspect of the right sacroiliac joint.~ Omnipaque dye was injected and good spread was seen throughout the joint.~ After this, approximately 5 mL of bupivacaine, 0.25% and Depo-Medrol, 40 mg was incrementally injected into the right sacroiliac joint. We then moved to the left sacroiliac joint.~ The skin and subcutaneous tissues were anesthetized using lidocaine 1.5% and a 25-gauge needle.~ After this, a 22- gauge spinal needle was inserted under fluoroscopic guidance into the inferior aspect of the left sacroiliac joint.~ Omnipaque dye was injected and good spread was seen throughout the joint. After this, approximately 5 mL of bupivacaine, 0.25% and Depo-Medrol, 40 mg was incrementally injected into the left sacroiliac joint.~ The patient tolerated the procedure well with no complications. The patient was observed in the Pain Clinic and then was discharged home neurologically intact. Plan and Disposition:: Patient was discharged without incident.
[2023-02-05 08:40] VITALS: BP 124/69; PULSE 51; RESP 18; O2SAT 94
== END 2023-02-05 08:40 | disposition home or self-care (01) ==
PROVIDERS: PCP Internal Medicine Adolescent Medicine; Visit Provider Nurse Anesthetist, Certified Registered
DX: M46.1 Sacroiliitis, not elsewhere classified (principal); M51.16 Intervertebral disc disorders with radiculopathy, lumbar region; M96.1 Postlaminectomy syndrome, not elsewhere classified
CPT/HCPCS: 27096; G0260; J1040

== ENCOUNTER → 2023-02-24 08:23 | Outpatient (POV) | payer BC, MEDICARE, SELFPAY ==
--- NOTE | 2023-02-24 09:16 | A.OFFVIS_ITS ---
[facility] Pain Management SOAP Note Subjective:: Patient is a pleasant 72-year-old male who presents today for follow-up of bilateral SI injections on 02/05/2023. We are currently treating the patient for degenerative disc disease of lumbar spine with lumbar radiculopathy symptoms, postlaminectomy syndrome, lumbar spondylosis, bilateral sacroiliitis. Today he rates his pain a 2 out of 10. Patient states he has had at least 50% improvement following this injection and feels like it still continue to provide additional relief. Patient states he has been able to increase his activity with decreased pain. Patient is currently managed with gabapentin 300 mg a day and methocarbamol 500 mg at bedtime. Patient denies any side effects from these medications. His Javed is [id number]. Its been reviewed and appropriate. Review of Systems: General: No recent weight changes, no fever, no sleep disturbances Respiratory: No cough, no shortness of air, no recurring pulmonary infections Cardiovascular/peripheral vascular: No chest pain, no palpitations, no edema, no shortness of breath Gastrointestinal: No new onset incontinence, normal bowel movements reported Genitourinary: No new onset incontinence Musculoskeletal: Low back pain Psychiatric: [Normal mood/affect] Neurological: [Denies weakness in extremities], [denies balance issues] Objective:: Physical Exam: General: Alert and oriented x3, no acute distress, pleasant and cooperative Lungs: Respirations even and unlabored, symmetrical chest expansion Eyes: PERRL Musculoskeletal: Flexion and extension of lumbar [spine] somewhat guarded secondary to pain, [antalgic gait noted] Neurological: Speech clear, no gross sensory deficit Assessment:: Degenerative disc disease of lumbar spine with lumbar radiculopathy symptoms, lumbar postlaminectomy syndrome, lumbar spondylosis, bilateral sacroiliitis Plan:: Patient has had at least 50% improvement following his SI injections and does not require any additional injective therapy. At our last appointment he was called in a 3-month supply of his methocarbamol and gabapentin and does not require any additional refills at this time. Patient would like to call us when he needs us for his next follow-up appointment. Patient has been instructed to contact the clinic with any concerns before the next appointment. Dr. Carranza has reviewed this note and agrees with this plan of care. This note was dictated using voice recognition software and make contain errors or omissions. [facility] Disclaimer: The information contained in this section may have been updated after the patient was seen, as this information can be updated by other users. 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
[2023-02-24 09:29] VITALS: BP 121/70; PULSE 60; RESP 18; O2SAT 97; BMI 28.7
== END ==
PROVIDERS: Visit Provider Nurse Practitioner Family
DX: M51.16 Intervertebral disc disorders with radiculopathy, lumbar region (principal); M96.1 Postlaminectomy syndrome, not elsewhere classified; M47.26 Other spondylosis with radiculopathy, lumbar region; M46.1 Sacroiliitis, not elsewhere classified
CPT/HCPCS: 99212; G0463

== ENCOUNTER → 2023-03-30 07:47 | Outpatient (CLI) | payer BC, MEDICARE, SELFPAY ==
[2023-03-30 08:08] LABS: Basophils % 0.6 % (0.1-2.0); Eosinophils # 0.3 K/mm3 (0.0-0.4); Eosinophils % 4.8 % (0.1-12.0); Hematocrit 45.3 % (42.0-52.0); Hemoglobin 14.6 g/dL (14.1-18.0); Lymphocytes # 3.9 K/mm3 (0.7-4.5); Lymphocytes % 56.1 % (10-50); Mean Corpuscular HGB Conc 32.2 g/dL (31.8-35.4); Mean Corpuscular Hemoglobin 30.2 pg (27.0-31.2); Mean Corpuscular Volume 93.9 fl (80-94); Monocytes # 0.4 K/mm3 (0.1-1.0); Monocytes % 6.2 % (1.7-9.3); Neutrophils # 2.3 K/mm3 (1.8-7.8); Neutrophils % 32.4 % (37.0-80.0); Platelet Count 333 K/mm3 (142-424); Red Blood Count 4.82 M/mm3 (4.60-6.20); Red Cell Distribution Width 13.2 % (11.5-17.5)
[2023-03-30 08:11] LABS: MANUAL DIFFERENTIAL MANUAL DIFFERENTIAL (MANUAL DIFF)
[2023-03-30 08:24] LABS: Eosinophils % 7 % (0-3); Lymphocytes % 51 % (10-50); Monocytes % 2 % (2-9); Neutrophils % 39 % (42-76); Platelet Estimate Normal; RBC Morphology Normal; Total Cells Counted 100
[2023-03-30 08:32] LABS: Creatinine,Urine Random 87 mg/dL (Not Estab.); Microalbumin < 6.000 mg/L (0-16.7)
[2023-03-30 08:34] LABS: Chloride 98 mmol/L (98-107)
[2023-03-30 08:35] LABS: Potassium 3.9 mmoL/L (3.5-5.1); Sodium 140 mmol/L (136-145)
[2023-03-30 08:37] LABS: Alanine Aminotransferase 34 U/L (12-78); Anion Gap 16.9 mEq/L (5-15); Aspartate Amino Transferase 39 U/L (17-59); Blood Urea Nitrogen 26 mg/dl (9-20); Carbon Dioxide 29 mmol/L (22.0-30.0); Estimated Glomerular Filt Rate 40 ml/min (>60); GFR (African American) 48 ML/MIN (>60)
[2023-03-30 08:38] LABS: Albumin Level 4.4 g/dl (3.5-5.0); Albumin/Globulin Ratio 1.5 (1.1-1.8); Alkaline Phosphatase 45 U/L (38-126); Bilirubin,Total 0.3 mg/dl (0.2-1.3); Calcium 9.6 mg/dl (8.4-10.2); Chol/HDL Ratio 1.9 (1-3.5); Cholesterol 104 mg/dl (140-200); Glucose 140 mg/dl (74-100); HDL Cholesterol 55 mg/dl (40-60); Total Protein,Serum 7.4 g/dl (6.3-8.2); Triglycerides 90 mg/dl (30-150); VLDL Cholesterol 18 mg/dL (0-40)
[2023-03-30 08:46] LABS: Hemoglobin A1C 6.6 % (4.0-6.0)
== END ==
PROVIDERS: Nurse Practitioner Family; PCP Internal Medicine Adolescent Medicine; Visit Provider Internal Medicine Adolescent Medicine
DX: E78.5 Hyperlipidemia, unspecified (principal); E11.22 Type 2 diabetes mellitus with diabetic chronic kidney disease; D64.9 Anemia, unspecified; Z79.84 Long term (current) use of oral hypoglycemic drugs; N18.9 Chronic kidney disease, unspecified; I12.9 Hypertensive chronic kidney disease with stage 1 through stage 4 chronic kidney disease, or unspecified chronic kidney disease
CPT/HCPCS: 36415; 80053; 80061; 82043; 82570; 83036; 85007; 85025

== ENCOUNTER → 2023-04-14 08:43 | Outpatient (CLI) | payer BC, MEDICARE, SELFPAY ==
--- NOTE | 2023-04-14 08:45 | US_ITS ---
FINAL REPORT TECHNIQUE: Ultrasound images of the kidneys and bladder were obtained. CLINICAL HISTORY: Elevated CREATINE,TYPE II DM,CKD STAGE 2 FINDINGS: The right kidney measures 11.2 cm in length. It is normal in echogenicity. There is no hydronephrosis. The left kidney measures 12.1 cm in length. It is normal in echogenicity. There is no hydronephrosis. There is fatty infiltration of the liver. The spleen is unremarkable. IMPRESSION: Fatty liver. Reviewed, Interpreted and Dictated by Alan Lane III, MD Transcribed by Pooja Ruiz Authenticated and [facility]
== END ==
PROVIDERS: PCP Internal Medicine Adolescent Medicine; Visit Provider Internal Medicine Adolescent Medicine
DX: R74.8 Abnormal levels of other serum enzymes (principal); E11.22 Type 2 diabetes mellitus with diabetic chronic kidney disease; N18.2 Chronic kidney disease, stage 2 (mild); Z79.84 Long term (current) use of oral hypoglycemic drugs
CPT/HCPCS: 76770

== ENCOUNTER → 2023-06-15 12:19 | Outpatient (CLI) | payer BC, MEDICARE, SELFPAY ==
[2023-06-15 13:02] LABS: Blood Urea Nitrogen 20 mg/dl (9-20); Calcium 9.4 mg/dl (8.4-10.2); Carbon Dioxide 30 mmol/L (22.0-30.0); Chloride 100 mmol/L (98-107); Estimated Glomerular Filt Rate 46 ml/min (>60); GFR (African American) 56 ML/MIN (>60); Glucose 141 mg/dl (74-100); Sodium 139 mmol/L (136-145)
== END ==
PROVIDERS: PCP Nurse Practitioner Family; Visit Provider Nurse Practitioner Family
DX: R79.89 Other specified abnormal findings of blood chemistry (principal)
CPT/HCPCS: 36415; 80048

== ENCOUNTER 2023-07-16 09:37 | Outpatient (CLI) | payer BC, MEDICARE, SELFPAY ==
[2023-07-16 10:17] LABS: Chloride 103 mmol/L (98-107); Sodium 139 mmol/L (136-145)
[2023-07-16 10:18] LABS: Potassium 4.7 mmoL/L (3.5-5.1)
[2023-07-16 10:20] LABS: Blood Urea Nitrogen 22 mg/dl (9-20); Estimated Glomerular Filt Rate 40 ml/min (>60); GFR (African American) 48 ML/MIN (>60)
[2023-07-16 10:21] LABS: Anion Gap 9.7 mEq/L (5-15); Calcium 9.9 mg/dl (8.4-10.2); Carbon Dioxide 31 mmol/L (22.0-30.0); Glucose 144 mg/dl (74-100)
[2023-07-16 10:51] LABS: Hemoglobin A1C 7.4 % (4.0-6.0)
== END 2023-07-16 23:59 ==
LOC: LAB 09:38
PROVIDERS: PCP Internal Medicine Adolescent Medicine; Visit Provider Nurse Practitioner Family
DX: E11.22 Type 2 diabetes mellitus with diabetic chronic kidney disease (principal); Z79.84 Long term (current) use of oral hypoglycemic drugs; Z79.85 Long-term (current) use of injectable non-insulin antidiabetic drugs; N18.9 Chronic kidney disease, unspecified
CPT/HCPCS: 36415; 80048; 83036

== ENCOUNTER 2023-09-30 14:07 | Outpatient (CLI) | payer BC, MEDICARE, SELFPAY ==
[2023-09-30 15:17] LABS: Alanine Aminotransferase 34 U/L (12-78); Albumin Level 4.6 g/dl (3.5-5.0); Albumin/Globulin Ratio 1.6 (1.1-1.8); Alkaline Phosphatase 51 U/L (38-126); Anion Gap 12.3 mEq/L (5-15); Aspartate Amino Transferase 50 U/L (17-59); Bilirubin,Total 0.6 mg/dl (0.2-1.3); Blood Urea Nitrogen 20 mg/dl (9-20); Calcium 10.2 mg/dl (8.4-10.2); Carbon Dioxide 31 mmol/L (22.0-30.0); Chloride 101 mmol/L (98-107); Estimated Glomerular Filt Rate 35 ml/min (>60); GFR (African American) 42 ML/MIN (>60); Globulin 2.9 g/dL (1.3-3.2); Glucose 128 mg/dl (74-100); Potassium 4.3 mmoL/L (3.5-5.1); Sodium 140 mmol/L (136-145); Total Protein,Serum 7.5 g/dl (6.3-8.2)
[2023-09-30 15:34] LABS: Hemoglobin A1C 8.1 % (4.0-6.0)
== END 2023-09-30 23:59 ==
LOC: LAB 14:08
PROVIDERS: PCP Nurse Practitioner Family; Visit Provider Nurse Practitioner Family
DX: E11.22 Type 2 diabetes mellitus with diabetic chronic kidney disease (principal); N18.31 Chronic kidney disease, stage 3a
CPT/HCPCS: 36415; 80053; 83036

== ENCOUNTER 2023-12-23 07:32 | Outpatient (CLI) | payer BC, MEDICARE, SELFPAY ==
[2023-12-23 07:39] LABS: Microscopic, Urine URINE MICROSCOPIC (MICROSCOPIC)
[2023-12-23 07:58] LABS: Appearance,Urine CLEAR (Clear); Bilirubin,Urine Negative (Negative); Blood, Urine Negative (Negative); Color,Urine YELLOW (Yellow); Glucose,Urine (UA) 3+ (Negative); Ketones,Urine Negative (Negative); Leukocyte Esterase,Urine Negative (Negative); Nitrate,Urine Negative (Negative); PH,Urine 6.5 (5.0-8.5); Protein,Urine Negative (Negative); Urobilinogen,Urine 0.2 EU/dl (0.2)
[2023-12-23 07:59] LABS: Hematocrit 44.8 % (42.0-52.0); Hemoglobin 15.5 g/dL (14.1-18.0); Mean Corpuscular HGB Conc 34.5 g/dL (31.8-35.4); Mean Corpuscular Hemoglobin 32.1 pg (27.0-31.2); Mean Corpuscular Volume 93.2 fl (80-94); Platelet Count 337 K/mm3 (142-424); Red Blood Count 4.81 M/mm3 (4.60-6.20); Red Cell Distribution Width 13.2 % (11.5-17.5); White Blood Count 6.8 K/mm3 (4.8-10.8)
[2023-12-23 08:06] LABS: Creatinine,Urine Random 52 mg/dL (Not Estab.)
[2023-12-23 08:22] LABS: Bacteria,Urine Trace /lpf; Squamous Epithelial Cell,Urine Occasional #/hpf (0-5); WBC,Urine Occasional #/hpf (0-3)
[2023-12-23 08:28] LABS: Albumin Level 4.9 g/dl (3.5-5.0); Anion Gap 14.6 mEq/L (5-15); Blood Urea Nitrogen 30 mg/dl (9-20); Calcium 10.3 mg/dl (8.4-10.2); Carbon Dioxide 31 mmol/L (22.0-30.0); Chloride 99 mmol/L (98-107); Estimated Glomerular Filt Rate 33 ml/min (>60); GFR (African American) 40 ML/MIN (>60); Glucose 120 mg/dl (74-100); Phosphorous 3.4 mg/dl (2.5-4.5); Potassium 4.6 mmoL/L (3.5-5.1); Sodium 140 mmol/L (136-145)
[2023-12-23 08:39] LABS: Intact Parathyroid Hormone 68.4 pg/mL (7.5-53.5)
[2023-12-23 08:46] LABS: 25-OH Vitamin D, Total 87.1 ng/mL (30-100)
== END 2023-12-23 23:59 | disposition home or self-care (01) ==
LOC: LAB 07:33
PROVIDERS: PCP Internal Medicine Adolescent Medicine; Visit Provider Internal Medicine Nephrology
DX: N18.32 Chronic kidney disease, stage 3b (principal); E55.9 Vitamin D deficiency, unspecified
CPT/HCPCS: 36415; 80069; 81001; 82306; 82570; 83970; 84156; 85014; 85018; 85048; 85049

== ENCOUNTER 2024-02-26 09:10 | Outpatient (CLI) | payer BC, MEDICARE, SELFPAY ==
[2024-02-26 09:21] LABS: Microscopic, Urine URINE MICROSCOPIC (MICROSCOPIC)
[2024-02-26 09:29] LABS: Appearance,Urine CLEAR (Clear); Basophils # 0.1 K/mm3 (0-0.2); Basophils % 1.7 % (0.1-2.0); Bilirubin,Urine Negative (Negative); Blood, Urine Negative (Negative); Color,Urine YELLOW (Yellow); Eosinophils # 0.2 K/mm3 (0.0-0.4); Glucose,Urine (UA) 3+ (Negative); Hematocrit 45.5 % (42.0-52.0); Hemoglobin 14.8 g/dL (14.1-18.0); Ketones,Urine Negative (Negative); Leukocyte Esterase,Urine Negative (Negative); Lymphocytes # 3.4 K/mm3 (0.7-4.5); Lymphocytes % 56.5 % (10-50); Mean Corpuscular HGB Conc 32.5 g/dL (31.8-35.4); Mean Corpuscular Hemoglobin 31.4 pg (27.0-31.2); Mean Corpuscular Volume 96.6 fl (80-94); Mean Platelet Volume 9.1 fl (7.4-10.4); Monocytes # 0.3 K/mm3 (0.1-1.0); Monocytes % 5.4 % (1.7-9.3); Neutrophils % 32.4 % (37.0-80.0); Nitrate,Urine Negative (Negative); Platelet Count 307 K/mm3 (142-424); Protein,Urine Negative (Negative); Red Blood Count 4.71 M/mm3 (4.60-6.20); Red Cell Distribution Width 13.2 % (11.5-17.5); Specific Gravity, Urine <= 1.005 (1.005-1.030); Urobilinogen,Urine 0.2 EU/dl (0.2)
[2024-02-26 09:41] LABS: Creatinine,Urine Random 30 mg/dL (Not Estab.)
[2024-02-26 09:43] LABS: MANUAL DIFFERENTIAL MANUAL DIFFERENTIAL (MANUAL DIFF)
[2024-02-26 09:46] LABS: Squamous Epithelial Cell,Urine Occasional #/hpf (0-5)
[2024-02-26 10:13] LABS: Eosinophils % 5 % (0-3); Lymphocytes % 55 % (10-50); Monocytes % 7 % (2-9); Neutrophils % 33 % (42-76); Platelet Estimate Normal; RBC Morphology Normal; Total Cells Counted 100
[2024-02-26 10:14] LABS: Albumin Level 4.5 g/dl (3.5-5.0); Blood Urea Nitrogen 20 mg/dl (9-20); Carbon Dioxide 30 mmol/L (22.0-30.0); Chloride 104 mmol/L (98-107); Estimated Glomerular Filt Rate 43 ml/min (>60); GFR (African American) 52 ML/MIN (>60); Glucose 128 mg/dl (74-100); Phosphorous 3.5 mg/dl (2.5-4.5); Sodium 139 mmol/L (136-145)
== END 2024-02-26 23:59 | disposition home or self-care (01) ==
PROVIDERS: PCP Internal Medicine Adolescent Medicine; Visit Provider Internal Medicine Nephrology
DX: N18.30 Chronic kidney disease, stage 3 unspecified (principal)
CPT/HCPCS: 36415; 80069; 81001; 82570; 84156; 85007; 85025; 85027

== ENCOUNTER 2024-03-03 13:37 | Outpatient (POV) | payer BC, MEDICARE, SELFPAY | END 2024-03-03 23:59 | disposition home or self-care (01) | LOC: SC 13:38 | PROVIDERS: Visit Provider Student in an Organized Health Care Education/Training Program | DX: Z00.00 Encounter for general adult medical examination without abnormal findings (principal) ==

== ENCOUNTER → 2024-07-10 20:00 | Outpatient (CLI) | payer BC, MEDICARE, SELFPAY | LOC: SL 20:03 | PROVIDERS: PCP Internal Medicine Adolescent Medicine; Visit Provider Specialist | DX: G47.33 Obstructive sleep apnea (adult) (pediatric) (principal); R53.83 Other fatigue; I27.20 Pulmonary hypertension, unspecified; R06.83 Snoring | CPT/HCPCS: 95811 ==

== ENCOUNTER 2024-07-11 09:48 | Outpatient (CLI) | payer BC, MEDICARE, SELFPAY ==
[2024-07-11 10:10] LABS: Basophils % 0.5 % (0.1-2.0); Eosinophils # 0.2 K/mm3 (0.0-0.4); Hematocrit 41.7 % (42.0-52.0); Hemoglobin 14.2 g/dL (14.1-18.0); Lymphocytes # 3.7 K/mm3 (0.7-4.5); Lymphocytes % 46.6 % (10-50); Mean Corpuscular HGB Conc 34.1 g/dL (31.8-35.4); Mean Corpuscular Hemoglobin 30.4 pg (27.0-31.2); Mean Corpuscular Volume 89.3 fl (80-94); Mean Platelet Volume 9.9 fl (7.4-10.4); Monocytes # 0.6 K/mm3 (0.1-1.0); Monocytes % 7.5 % (1.7-9.3); Neutrophils # 3.3 K/mm3 (1.8-7.8); Neutrophils % 42.1 % (37.0-80.0); Platelet Count 353 K/mm3 (142-424); Red Blood Count 4.67 M/mm3 (4.60-6.20); Red Cell Distribution Width 11.9 % (11.5-17.5); White Blood Count 7.9 K/mm3 (4.8-10.8)
[2024-07-11 11:36] LABS: Albumin Level 4.7 g/dl (3.5-5.0); Chloride 100 mmol/L (98-107); Sodium 136 mmol/L (136-145)
[2024-07-11 11:37] LABS: Potassium 4.1 mmoL/L (3.5-5.1)
[2024-07-11 11:39] LABS: Alanine Aminotransferase 27 U/L (12-78); Albumin/Globulin Ratio 1.6 (1.1-1.8); Alkaline Phosphatase 57 U/L (38-126); Anion Gap 11.1 mEq/L (5-15); Aspartate Amino Transferase 35 U/L (17-59); Bilirubin,Total 0.3 mg/dl (0.2-1.3); Blood Urea Nitrogen 33 mg/dl (9-20); Carbon Dioxide 29 mmol/L (22.0-30.0); Estimated Glomerular Filt Rate 37 ml/min (>60); GFR (African American) 45 ML/MIN (>60); Globulin 2.9 g/dL (1.3-3.2); Total Protein,Serum 7.6 g/dl (6.3-8.2)
[2024-07-11 11:40] LABS: Calcium 9.9 mg/dl (8.4-10.2); Glucose 126 mg/dl (74-100)
[2024-07-11 12:09] LABS: Ferritin 38.7 ng/ml (17.9-464)
[2024-07-11 14:30] LABS: Folate > 20.00 ng/mL; Vitamin B12 > 1000 pg/mL (239-931)
[2024-07-11 21:40] LABS: Hemoglobin A1C 7.6 % (4.0-6.0)
[2024-07-12 16:24] LABS: Calcium, Ionized 5.1 mg/dL (4.5-5.6)
[2024-07-16 15:08] LABS: PTH Related Peptide < 2.0 pmol/L (.)
[2024-07-18 14:09] LABS: Narcolepsy DQA1*01:02 Positive (.); Narcolepsy DQB1*06:02 Negative (.)
== END 2024-07-11 23:59 | disposition home or self-care (01) ==
PROVIDERS: PCP Internal Medicine Adolescent Medicine; Visit Provider Specialist
DX: R53.83 Other fatigue (principal); G47.33 Obstructive sleep apnea (adult) (pediatric); E11.8 Type 2 diabetes mellitus with unspecified complications; Z79.85 Long-term (current) use of injectable non-insulin antidiabetic drugs; I10 Essential (primary) hypertension; Z87.891 Personal history of nicotine dependence; R06.83 Snoring; Z68.29 Body mass index [BMI] 29.0-29.9, adult; E66.3 Overweight
CPT/HCPCS: 36415; 80053; 81383; 82330; 82397; 82607; 82728; 82746; 83036; 85025

== ENCOUNTER 2024-07-26 06:39 | Outpatient (CLI) | payer BC, MEDICARE, SELFPAY ==
--- NOTE | 2024-07-26 | CA_ITS ---
APPROVED REPORT Exam: Exercise Treadmill Technologist: Lisa Loo Ht: 5 ft 9 in Wt: 198 lbs BSA: 2.06 m2 HR: 48 bpm BP: 127/78 mmHg Rhythm: NSR Medical History Medical History: HTN, Hyperlipidemia, Diabetes, Smoking Medications: Aspirin, Bisoprolol fumarate, Dapagliflozin propanediol, Evolocumab, Famotidine, Fenofibrate Nanocrystallized, Furosemide, Losartan, Tirzepatide Allergies: Moquclb-BAT-AbQ Reductase Inhibitor, Ezetimibe Cardiac Risk Factors: HTN, Hyperlipidemia, Diabetes, Smoking Stress Test Details Test: Exercise stress testing was performed using a Arnold protocol. HR Resting HR: 48 bpm Max Heart Rate (APMHR): 148 bpm Max HR Achieved: 147 bpm Target HR (85% APMHR): 126 bpm % of APMHR: 99 Recovery HR: 92 bpm HR response to stress: Normal HR response to stress BP Resting BP: 127.0/78.0 mmHg Max BP: 142.0/91.0 mmHg Recovery BP: 132.0/85.0 mmHg BP response to stress: Normal blood pressure response to stress. ECG Resting ECG: NSR Stress EC mm horizontal ST depression Arrhythmia: PVCs Clinical Exercise duration: 12:00 min Highest Stage Achieved: Stage 4: 4.2 mph at 16% grade. Exercise capacity: 12.1 METs Overall Exercise Capacity for Age: Good Stress ECG Conclusion Pt walked 12 minutes Max HR: 147 % of PM: 100% Max BP: 142/91 Mets: 12.1 Test stopped due to: SOA. No chest pain. Ectopy: PVCs occasionally ST changes: 1mm horizontal ST depression CONCLUSION: Good exercise capacity. Equivocal ECG changes at peak stress. Myoview images reported separately. Electronically signed by : Cyn Mejia MD 07/26/2024 11:34:55
--- NOTE | 2024-07-26 06:47 | NM_ITS ---
APPROVED REPORT Exam: Nuclear Stress Test Indication: cad, cabg, htn, diabetes, hypertension, f, hx., abn ekg Patient Location: Outpatient Stress Tech: Alicia Pandya [place] Tech:ROBERTO Garcia RT (R)(N)(M) Ht: 5 ft 9 in Wt: 189 lbs HR: 48 bpm BP: 127/78 mmHg BSA: 2.02 m2 TID: 1.06 BMI: 27.9 History: cad, cabg, htn, diabetes, hypertension, f, hx., abn ekg Procedure: Patient exercised on Arnold protocol 12:00 minutes and sec, resting heart rate 48 bpm, resting blood pressure 127/78 mmHg, with exercise maximum heart rate achived was 147 bpm which is 99 % of the maximum predicted heart rate and blood pressure was 145/85 mmHg. Test was stopped due to sob. Patient denied any complaint of chest pain. Patient has good exercise capacity, achieved 12.1 METs of workload on treadmill, the blood pressure response to exercise was normal. Cardiac Stress and Resting SPECT Images: Cardiac Stress and Resting SPECT images were obtained using technetium 99m Myoview 31.3 mCi stress and 10.50 mCi at rest. Resting and stress imaging in supine and prone positions demonstrate a small sized, moderate, partially reversible perfusion defect in the apical LV wall. Gated imaging demonstrates mild reduction global LV systolic function. LVEF is calculated at 47%. Conclusion: S apical LV wall. Findings are suggestive of partial reversible ischemia. Gated imaging demonstrates mild reduction global LV systolic function. LVEF is calculated at 47%. Electronically signed by : Cyn Mejia MD 07/26/2024 11:30:25
[2024-07-26] MEDS: ISOTOPE MYOVIEW (PER STUDY) 1 DOSE IV (09:39)
[2024-07-26] MEDS: SODIUM CHLORIDE 0.9% 10ML SYR (RAD ONLY) 10 ML IV ×2 (09:39)
== END 2024-07-26 23:59 | disposition home or self-care (01) ==
LOC: RAD 06:41
PROVIDERS: PCP Internal Medicine Adolescent Medicine; Visit Provider Nurse Practitioner Family
DX: I25.10 Atherosclerotic heart disease of native coronary artery without angina pectoris (principal); R53.83 Other fatigue
CPT/HCPCS: 78452; 93017; 93018; 93306; A9502

== ENCOUNTER 2024-09-07 08:20 | Day surgery (SDC) | payer BC, MEDICARE, SELFPAY ==
[2024-09-07] VITALS (12 sets, daily range): BP systolic 108–150; BP diastolic 64–91; PULSE 46–77; RESP 18–20; TEMP 35.5; O2SAT 95–99; BMI 29.5
--- NOTE | 2024-09-07 07:19 | IR_ITS ---
APPROVED REPORT Patient Location: Outpatient Oil Refiner: Tayo Paris, RT (R) PROCEDURES Left heart catheterization Left ventriculogram Selective coronary angiogram Left internal mammary angiography Selective engage in the saphenous vein graft to circumflex artery Selective engagement of saphenous vein graft to the right coronary Drug-eluting stent deployment to the ostial proximal saphenous vein graft supplying the right coronary INDICATION Coronary artery disease, Angina pectoris, History of coronary bypass Informed consent was obtained prior to the procedure. COMPLICATIONS NONE Estimated Blood Loss: LESS THAN 10 ML TECHNIQUE One percent lidocaine used to anesthetize the right groin. The right femoral artery was accessed via the Seldinger technique and a 5 Iraqi sheath was placed in the right femoral artery. A JL 4, JR4 catheter were used to perform left heart catheterization, left ventriculogram selective coronary angiography as well as selective engagement of the 2 vein grafts and the left internal mammary artery. At the end of the diagnostic angiogram therapeutic heparin was administered given a therapeutic ACT and the 5 Iraqi sheath was exchanged for a 6 Iraqi sheath. A multipurpose guide catheter was placed in the saphenous vein graft supplying the right coronary artery and a BMW wire was advanced. A 3.5 x 22 mm [place] frontier stent was deployed at 20 sebastian reducing the stenosis to 0%. Excellent angiograph results were obtained at the end the procedure the apparatus was removed the groin is reprepped closure change sheath was removed and hemostasis was achieved using Perclose device patient was transferred to the postop putting in stable condition ANGIOGRAPHIC RESULTS The left main artery Normal The left anterior descending artery Is patent with mild 10% proximal luminal regularities. The entire mid LAD is a small caliber vessel which appears to be without significant focal atherosclerotic disease and mostly just a small caliber vessel. Following the first septal information manager the entire LAD system is less than 2 mm in diameter The circumflex artery Nondominant with proximal and mid vessel 30 to 40% stenosis supplying 2 small to medium sized first and second obtuse marginal The right coronary artery Proximally occluded The LINARES ventriculogram reveals Preserved at 60% The left ventricular end-diastolic pressure 10 mmHg MAN graft is proximally occluded Saphenous vein graft to circumflex artery ostially occluded Saphenous vein graft to right coronary artery has a long ostial proximal tubular 70% concentric stenosis IMPRESSION Coronary disease as described above. Interval loss of MAN to LAD Angiographically small caliber LAD without focal stenosis making percutaneous revascularization and appropriate Severe disease in the saphenous vein graft supplying the ione right coronary Successful stenting the saphenous vein graft severe disease reduced to 0% with 1 drug-eluting stent Normal ejection fraction Normal LVEDP PLAN 1. Medical management for the LAD 2. Dual antiplatelet therapy 3. Cardiac rehabilitation 4. Avoidance of tobacco products 5. LDL less than 55 achieved high intensity statin 6. Aggressive risk factor modification Electronically signed by : Manav Jett MD 09/07/2024 12:14:16
[2024-09-07 08:47] LABS: Basophils % 0.5 % (0.1-2.0); Eosinophils # 0.3 K/mm3 (0.0-0.4); Eosinophils % 4.1 % (0.1-12.0); Hematocrit 41.5 % (42.0-52.0); Hemoglobin 14.1 g/dL (14.1-18.0); Lymphocytes # 3.8 K/mm3 (0.7-4.5); Mean Corpuscular Hemoglobin 30.3 pg (27.0-31.2); Mean Corpuscular Volume 89.2 fl (80-94); Mean Platelet Volume 10.3 fl (7.4-10.4); Monocytes # 0.6 K/mm3 (0.1-1.0); Neutrophils # 3.2 K/mm3 (1.8-7.8); Neutrophils % 40.2 % (37.0-80.0); Platelet Count 265 K/mm3 (142-424); Red Blood Count 4.65 M/mm3 (4.60-6.20); Red Cell Distribution Width 12.6 % (11.5-17.5)
[2024-09-07 08:51] LABS: Chloride 106 mmol/L (98-107); Sodium 141 mmol/L (136-145)
[2024-09-07 08:54] LABS: Creatinine Clearance Estimated 66 mL/min (50-200); Estimated Glomerular Filt Rate 54 ml/min (>60); GFR (African American) 66 ML/MIN (>60)
[2024-09-07 08:55] LABS: Glucose 148 mg/dl (74-100)
[2024-09-07 09:23] LABS: Blood Urea Nitrogen 20 mg/dl (9-20); Carbon Dioxide 27 mmol/L (22.0-30.0)
[2024-09-07] MEDS: diphenhydrAMINE 50MG/ML VIAL 50 MG IV (10:27)
[2024-09-07] MEDS: LIDOCAINE 1% 10ML MDV 20 ML IJ (10:28)
[2024-09-07] MEDS: HEPARIN 1,000 UNITS/500ML NS (CATH LAB) 3000 UNIT IV (10:29)
[2024-09-07] MEDS: FENTANYL 100MCG/2ML VIAL 50 MCG IV (10:30)
[2024-09-07] MEDS: MIDAZOLAM HCL 1MG/ML 5ML VIAL 1 MG IV (10:30)
[2024-09-07] MEDS: 0.9 % SODIUM CHLORIDE 500 ML 25 ML IV (10:58)
[2024-09-07] MEDS: HEPARIN 1,000 UNITS/ML 10ML VIAL (CATH LAB) 10000 UNIT IV (10:59)
[2024-09-07] MEDS: CLOPIDOGREL 300MG TABLET 600 MG PO (11:15)
[2024-09-07] MEDS: IOPAMIDOL-370 (76%);100ML BOTTLE 90 ML IV (14:59)
[2024-09-07 15:03] LABS: CATHL Activated Clotting Time 320 SEC (74-125)
== END 2024-09-07 14:21 | disposition home or self-care (01) ==
PROVIDERS: PCP Internal Medicine Adolescent Medicine; Visit Provider Internal Medicine
DX: I25.118 Atherosclerotic heart disease of native coronary artery with other forms of angina pectoris (principal); R93.1 Abnormal findings on diagnostic imaging of heart and coronary circulation; Z95.1 Presence of aortocoronary bypass graft; Z79.899 Other long term (current) drug therapy; Z88.8 Allergy status to other drugs, medicaments and biological substances; E11.9 Type 2 diabetes mellitus without complications; Z79.84 Long term (current) use of oral hypoglycemic drugs; I10 Essential (primary) hypertension; E78.5 Hyperlipidemia, unspecified; I27.20 Pulmonary hypertension, unspecified; Z87.891 Personal history of nicotine dependence
CPT/HCPCS: 80048; 85025; 85347; 92937; 93459; 99152; 99153; C1725; C1760; C1769; C1874; C1894; C9604; J1200; J1644; J3010; Q9967

== ENCOUNTER 2024-09-09 08:06 | Outpatient (CLI) | payer BC, MEDICARE, SELFPAY ==
[2024-09-09 08:58] LABS: Basophils % 0.5 % (0.1-2.0); Eosinophils # 0.4 K/mm3 (0.0-0.4); Eosinophils % 5.1 % (0.1-12.0); Hematocrit 42.2 % (42.0-52.0); Hemoglobin 14.1 g/dL (14.1-18.0); Lymphocytes # 3.5 K/mm3 (0.7-4.5); Lymphocytes % 47.7 % (10-50); Mean Corpuscular HGB Conc 33.4 g/dL (31.8-35.4); Mean Corpuscular Hemoglobin 30.3 pg (27.0-31.2); Mean Corpuscular Volume 90.6 fl (80-94); Monocytes # 0.7 K/mm3 (0.1-1.0); Monocytes % 9.7 % (1.7-9.3); Neutrophils # 2.7 K/mm3 (1.8-7.8); Neutrophils % 36.7 % (37.0-80.0); Platelet Count 252 K/mm3 (142-424); Red Blood Count 4.66 M/mm3 (4.60-6.20); Red Cell Distribution Width 12.7 % (11.5-17.5); White Blood Count 7.4 K/mm3 (4.8-10.8)
[2024-09-09 09:22] LABS: Anion Gap 10.6 mEq/L (5-15); Blood Urea Nitrogen 16 mg/dl (9-20); Calcium 9.7 mg/dl (8.4-10.2); Carbon Dioxide 29 mmol/L (22.0-30.0); Chloride 104 mmol/L (98-107); Estimated Glomerular Filt Rate 54 ml/min (>60); GFR (African American) 66 ML/MIN (>60); Glucose 155 mg/dl (74-100); Potassium 4.6 mmoL/L (3.5-5.1); Sodium 139 mmol/L (136-145)
== END 2024-09-09 23:59 | disposition home or self-care (01) ==
LOC: LAB 08:08
PROVIDERS: PCP Internal Medicine Adolescent Medicine; Visit Provider Internal Medicine
DX: I25.10 Atherosclerotic heart disease of native coronary artery without angina pectoris (principal); E78.2 Mixed hyperlipidemia; I10 Essential (primary) hypertension
CPT/HCPCS: 36415; 80048; 85025

== ENCOUNTER 2024-09-18 09:14 | Outpatient (CLI) | payer BC, MEDICARE, SELFPAY ==
[2024-09-18 10:23] LABS: Cholesterol 124 mg/dl (140-200); Triglycerides 131 mg/dl (30-150); VLDL Cholesterol 26 mg/dL (0-40)
[2024-09-18 10:24] LABS: Chol/HDL Ratio 1.9 (1-3.5); HDL Cholesterol 64 mg/dl (40-60)
[2024-09-18 10:34] LABS: Direct LDL Cholesterol 36.27 mg/dL (100-129)
[2024-09-18 10:38] LABS: Free T4 (Free Thyroxine) 1.15 ng/dl (0.78-2.19)
[2024-09-18 10:54] LABS: Thyroid Stimulating Hormone 4.27 uIU/mL (0.465-4.68)
== END 2024-09-18 23:59 | disposition home or self-care (01) ==
LOC: LAB 09:15
PROVIDERS: PCP Internal Medicine Adolescent Medicine; Visit Provider Nurse Practitioner
DX: I25.118 Atherosclerotic heart disease of native coronary artery with other forms of angina pectoris (principal); E78.49 Other hyperlipidemia; I10 Essential (primary) hypertension
CPT/HCPCS: 36415; 80061; 84439; 84443

== ENCOUNTER 2024-09-20 12:55 | Outpatient (RCR) | payer BC, MEDICARE, SELFPAY | END 2024-11-30 10:00 | disposition home or self-care (01) | LOC: CR 12:55 | PROVIDERS: Visit Provider Nurse Practitioner | DX: I27.20 Pulmonary hypertension, unspecified (principal); G47.33 Obstructive sleep apnea (adult) (pediatric) | CPT/HCPCS: 93798 ==

== ENCOUNTER 2024-09-25 08:57 | Outpatient (CLI) | payer BC, MEDICARE, SELFPAY ==
[2024-09-25 09:03] LABS: Microscopic, Urine URINE MICROSCOPIC (MICROSCOPIC)
[2024-09-25 09:43] LABS: Appearance,Urine CLEAR (Clear); Bilirubin,Urine Negative (Negative); Blood, Urine Negative (Negative); Color,Urine YELLOW (Yellow); Glucose,Urine (UA) 3+ (Negative); Ketones,Urine Negative (Negative); Leukocyte Esterase,Urine Negative (Negative); Nitrate,Urine Negative (Negative); Protein,Urine Negative (Negative); Urobilinogen,Urine 0.2 EU/dl (0.2)
[2024-09-25 09:52] LABS: Squamous Epithelial Cell,Urine Occasional #/hpf (0-5); WBC,Urine Occasional #/hpf (0-3)
[2024-09-25 09:54] LABS: Creatinine,Urine Random 46 mg/dL (Not Estab.)
[2024-09-25 09:57] LABS: Microalbumin < 6.000 mg/L (0-16.7)
[2024-09-25 10:09] LABS: Hematocrit 41.3 % (42.0-52.0); Mean Corpuscular HGB Conc 33.9 g/dL (31.8-35.4); Mean Corpuscular Hemoglobin 30.6 pg (27.0-31.2); Mean Corpuscular Volume 90.4 fl (80-94); Platelet Count 296 K/mm3 (142-424); Red Blood Count 4.57 M/mm3 (4.60-6.20); Red Cell Distribution Width 12.6 % (11.5-17.5); White Blood Count 6.3 K/mm3 (4.8-10.8)
[2024-09-25 10:18] LABS: Albumin Level 4.2 g/dl (3.5-5.0); Anion Gap 14.6 mEq/L (5-15); Blood Urea Nitrogen 22 mg/dl (9-20); Calcium 9.8 mg/dl (8.4-10.2); Carbon Dioxide 27 mmol/L (22.0-30.0); Chloride 100 mmol/L (98-107); Estimated Glomerular Filt Rate 54 ml/min (>60); GFR (African American) 66 ML/MIN (>60); Glucose 145 mg/dl (74-100); Phosphorous 3.3 mg/dl (2.5-4.5); Potassium 4.6 mmoL/L (3.5-5.1); Sodium 137 mmol/L (136-145)
[2024-09-25 10:30] LABS: Intact Parathyroid Hormone 61.6 pg/mL (7.5-53.5)
[2024-09-25 10:35] LABS: 25-OH Vitamin D, Total 83.5 ng/mL (30-100)
== END 2024-09-25 23:59 | disposition home or self-care (01) ==
LOC: LAB 08:58
PROVIDERS: PCP Internal Medicine Adolescent Medicine; Visit Provider Student in an Organized Health Care Education/Training Program
DX: I12.9 Hypertensive chronic kidney disease with stage 1 through stage 4 chronic kidney disease, or unspecified chronic kidney disease (principal); N18.31 Chronic kidney disease, stage 3a; E83.9 Disorder of mineral metabolism, unspecified; M89.9 Disorder of bone, unspecified; Z87.891 Personal history of nicotine dependence
CPT/HCPCS: 36415; 80069; 81001; 82043; 82306; 82570; 83970; 84156; 85027

== ENCOUNTER 2024-12-11 11:07 | Outpatient (CLI) | payer BC, MEDICARE, SELFPAY ==
--- NOTE | 2024-12-11 11:11 | XR_ITS ---
FINAL REPORT TECHNIQUE: Lumbar spine, 5 views, thoracic spine, 3 views CLINICAL HISTORY: BACK PAIN Surgery, L spine 2020 surgery COMPARISON: None FINDINGS: LUMBAR SPINE: AP, oblique, and lateral views of the lumbar spine were obtained. There is no prior exam for comparison. There is no acute fracture or malalignment. Vertebral body height is preserved. There is fusion hardware present at the L4-5 and L5-S1 levels. Small osteophytes are noted at multiple levels. Disc space height is preserved. No acute paraspinal abnormality. IMPRESSION: Postoperative change and small osteophytes, without acute bony abnormality. THORACIC SPINE: AP, lateral, and swimmer's views of the thoracic spine were obtained. There is no prior exam for comparison. There is no acute fracture or malalignment. Moderate anterior osteophytes are present. Median sternotomy wires are noted. Vertebral body height is preserved. Paraspinal soft tissues are within normal limits. IMPRESSION: Moderate anterior osteophytes without acute bony abnormality. Reviewed, Interpreted and Dictated by Maxime Hussein MD Transcribed by Bere Whitman Authenticated and [facility]
--- OUTSIDE RECORDS SUMMARY | 2024-12-11 11:11 | XMS_ITS | Encounter Summary ---
Author Organization Healthcare Address [address] [place] [address] Care Team Providers Care Swift Tender Name Role Phone Santino Carrillo MD Primary Care Provider [phone] Encounter Details Date Type Department Care Team (Late st Contact Info) Description 11/28/2021 Community [facility] [address] [place] [address] Alpa Acuña, [employer] COMMISSIONER [address] [place] [address] Hamstring tendonitis at origin (Primary Dx) Social History Tobacco Use Types Packs/Day Years Used Date Smoking Tobacco: Former Alcohol Use Standard Drinks/Week Comments Yes 0 (1 standard drink = 0.6 oz pur e alcohol) Sex and Gender Information Value Date Recorded Sex Assigned at Male 07/04/2021 2:18 PM EST Legal Sex Male 8:05 PM EDT Gender Identity Male 07/04/2021 2:18 PM EST Sexual Orientation Not on file documented as of this encounter Plan of Treatment Upcoming Encounters Date Type Department Care Team (Late st Contact Info) Description 10/12/2025 10:40 AM EDT Office Visit [facility] [address] [place] [id number] Andres Dye MD [address] [place] [phone] documented as of this encounter Visit Diagnoses Diagnosis Hamstring tendonitis at origin- Primary documented in this encounter Additional Health Concerns Assessment Noted Time A fall risk assessment has been complete d for the patient 07/11/2021 1:07 PM EST documented as of this encounter Care Teams Swift Tender Relationship Specialty Start Date End Date Santino Carrillo MD [address] [place] [address] PCP - General 11/08/20 documented as of this encounter
--- OUTSIDE RECORDS SUMMARY | 2024-12-11 11:12 | XMS_ITS | Clinical Summary ---
Author Organization [facility] Address [address] [place] [address] Care Team Providers Care Deburring Technician Name Role Phone Santino Carrillo MD Primary Care Provider [phone] Allergies Active Allergy Reactions Criticality Noted Date Comments Ezetimibe Unknown - Patient st ates they do not know rxn details Low 11/14/2015 Statins Unknown - Patient st ates they do not know rxn details Low 11/05/2008 Medications glucose blood test strip Accu-Chek Florence Plus test strips Active Accu-Chek Softclix Lancets lancets Accu-Chek Softclix Lancets Active bisoprolol (Zebeta) 5 MG tablet bisoprolol fumarate 5 mg tablet 11/22/19 18 Active aspirin 81 MG EC tablet Take 1 tablet (81 mg) by mouth 1 (one) time each day. Active Repatha SureClick 140 MG/ML solution auto-injector 07/08/19 22 Active fenofibrate (Tricor) 145 MG tablet fenofibrate nanocrystallized 145 mg tablet 12/25/19 15 Active furosemide (Lasix) 20 MG tablet Take 20 mg by mouth 1 (one) time each day. Active furosemide (Lasix) 40 MG tablet 40mg in am and 20mg in pm 11/09/19 18 Active Multiple Vitamins-Iron tablet Take by mouth 1 (one) time each day. Acti ve losartan (Cozaar) 100 MG tablet losartan 100 mg tablet 11/22/19 18 Active Praluent 150 MG/ML solution auto-injector 07/09/19 23 Active Farxiga 10 MG tablet 07/06/19 23 Active famotidine (Pepcid) 40 MG tablet Take 1 tablet (40 mg) by mouth every night. 08/16/19 24 Active CINNAMON PO Take by mouth. Act aleja prasugrel (Effient) 10 MG tablet Take 1 tablet by mouth daily. Active Mounjaro 5 MG/0.5ML solution auto-injector solution pen-injector Inject 0.5 mL under the skin 1 (one) time per week. Active Active Problems Problem Noted Date Diagnosed Date Anemia in stage 3a chronic kidney disease 2023 Hypertensive chronic kidney disease with stage 1 through stage 4 chronic kidney disease, or unspecified chronic kidney disease 03/03/2024 Chronic kidney disease-mineral and bone disorder (CKD-MBD) 03/03/2024 Lumbar radiculopathy 12/15/2021 Dyslipidemia 07/11/2021 GERD (gastroesophageal reflux disease) Hyperlipidemia 07/11/2021 Hypertension 07/11/2021 Obstructive sleep apnea on CPAP 07/11/2021 Vitamin D deficiency 07/11/2021 Heart failure 06/02/2018 Multilevel degenerative disc disease 06/02/2018 Secondary pulmonary hypertension 06/02/2018 After cataract of left eye not obscuring vision 05/20/2015 Cataract, nuclear sclerotic, right eye 5 Retinal detachment, rhegmatogenous, left eye Cataract, right eye 03/15/2015 Coronary artery disease 10/26/2008 Overview (07/11/2021): DR. CHANDRA,Cath September 2014: 2/3 Patent grafts with non-obstructive CX, occluded graft to CX, Normal EF 1. Coronary artery disease: a. October 2008, CABG x3, Dr. Chandra, territory is unknown. b. September 2014: [facility] 2/3 patent grafts with non-obstructive circumflex, occluded graft to circumflex. Normal EF. DR. CHANDRA,Cath September 2014: 2/3 Patent grafts with non-obstructive CX, occluded graft to CX, Normal EF 1. Coronary artery disease: a. October 2008, CABG x3, Dr. Chandra, territory is unknown. b. September 2014: [facility] 2/3 patent grafts with non-obstructive circumflex, occluded graft to circumflex. Normal EF. Diabetes mellitus 06/28/2007 Encounters Date Type Department Care Team Description 09/29/2024 10:40 AM EDT Office Visit [facility] [address] [phone] Andres Dye MD Mixed hyperlipidemia (Primary Dx); Stage 3a chronic kidney disease (CMS/HCC); Hypertensive chronic kidney disease with stage 1 through stage 4 chronic kidney disease, or unspecified chronic kidney disease; Chronic kidney disease-mineral and bone disorder (CKD-MBD); Anemia in stage 3a chronic kidney disease; Type 2 diabetes mellitus with stage 3a chronic kidney disease, without long-term current use of insulin ([facility]); Acute kidney injury superimposed on stage 3a chronic kidney disease ([facility]) 09/29/2024 Travel from Last 3 Months Immunizations Immunization Administration Dates Next Due Influenza Vaccine, Quadrival ent, Adjuvanted 03/31/2023,03/31/2022,03/26/2021 Influenza, High-dose, Split Virus, Trivalent, Injectable, preservative free 03/28/2019,03/22/2018 Influenza, high-dose, quadrivalent 03/28,03/28/2019,03/22/2018,2017 Influenza, injectable, quadrivalent 03/05/2017 Pneumococcal Conjugate PCV 13 11/03/2018 Rsvpref, Recombinant, Protei n Subunit, Adjuvent 05/10/2023 TD (adult), 2 Lf tetanus tox oid, preservative free, adsorbed 08/29/1996 Zoster, Recombinant 04/18/2019 Family History Medical History Relation Name Comments Diabetes Father Heart disease Father Kidney disease Father Alzheimer's disease Mother Hypertension Mother Stroke Mother Cancer Sister Relation Name Status Comments Father Mother Sister Social History Tobacco Use Types Packs/Day Years Used Date Smoking Tobacco: Former Smokeless Tobacco: Never Tobacco Cessation:Counseling Given: Not Answered Alcohol Use Standard Drinks/Week Comments Yes 0 (1 standard drink = 0.6 oz pur e alcohol) CAGE ASSESSMENT Answer Date Recorded Cage unable to access Not on file 07/20/2022 Maximum number of drinks you had on a given occasion in the last month? 0 drinks 07/20/2022 How many alcoholic Beverages do you typically drink in a week? 0 - 7 per week 07/20/2022 Have you ever felt you should CUT down on your d rinking? 0 07/20/2022 Have you been ANNOYED by peo ple criticizing your drinking? 0 07/20/2022 Have you felt GUILTY about your drinking? 0 07/20/2022 Have you had a drink first t cordell in the morning ([employer]) to steady your nerves or to get rid of a hangover? 0 07/20/2022 CAGE Questionnaire Score 0 023 Sex and Gender Information Value Date Recorded Sex Assigned at Male 07/04/2021 2:18 PM EST Legal Sex Male 8:05 PM EDT Gender Identity Male 07/04/2021 2:18 PM EST Sexual Orientation Not on file Last Filed Vital Signs Vital Sign Reading Time Taken Comments Blood Pressure 128/71 09/29/2024 10:36 AM EDT Pulse 50 09/29/2024 10:36 AM EDT Temperature 36.2 C (97.1 F) 03/03/2024 12:07 PM EDT Respiratory Rate 18 09/29/2024 10:36 AM EDT Oxygen Saturation 95% 09/29/2024 10:36 AM EDT Inhaled Oxygen Concentration - - Weight 91.2 kg (201 lb) 09/29/2024 10:36 AM EDT Height 175.3 cm (5' 9 ) 09/29/2024 10:36 AM EDT Body Mass Index 29.68 09/29/2024 10:36 AM EDT Plan of Treatment Upcoming Encounters Date Type Department Care Team (Late st Contact Info) Description 10/12/2025 10:40 AM EDT Office Visit [facility] [address] [place] [phone] Andres Dye MD [address] [place] [phone] Health Maintenance Due Date Last Done Comments [facility]-Depression Screening 1950 [facility]-Diabetes: Hemoglobin A1C 1950 [facility]-Medicare Annual Wellness (AWV) 1950 [facility]-/Child/Adol SDOH Screenings 1950 Diabetes: Dental Exam 09/26/1961 [facility]- SDOH Screenings 09/26/1969 [facility]-Adult SDOH Screenings 09/26/1969 [facility]-DTaP,Tdap,and Td Vaccines (1 - Tdap) 08/30/1996 08/29/1996 CT Colonography 09/26/1996 Colonoscopy 09/26/1996 FIT-DNA 09/26/1996 FIT 09/26/1996 FOBT 09/26/1996 Sigmoidoscopy 09/26/1996 [facility]-Colorectal Cancer Screening 09/26/1996 [facility]-Abdominal Aortic Aneurysm (AAA) Screening 09/26/2016 [facility]-Pneumococcal Vaccine: 50+ Years (2 of 2 - PPSV23) 12/29/2018 11/03/2018 [facility]-Zoster Vaccines (2 of 2) 06/13/2019 04/18/2019 [id number] Vaccine ( season) 2024 04/30/2021, 09/25/2020, 08/28/2020 [facility]-Hepatitis C Screening Completed 07/20/2022 [facility]-RSV Vaccine: 60+ Years or Completed 05/10/2023 [facility]-Influenza Vaccine Completed 04/07/2024 , 03/31/2023, 03/31/2022, Additional history exists [facility]-Obesity Intervention Completed 025, 03/03/2024, 12/27/2023 HPV Vaccines Aged Out No longer eligi ble based on patient's age to complete this topic [facility]-HIB Vaccines Aged Out No longer e ligible based on patient's age to complete this topic [facility]-Hepatitis A Vaccines Aged Out No longer eligible based on patient's age to complete this topic [facility]-IPV Vaccines Aged Out No longer e ligible based on patient's age to complete this topic [facility]-Rotavirus Vaccines Aged Out No lo nger eligible based on patient's age to complete this topic Procedures Procedure Name Priority Date/Time Associated Diagnosis Comments HEPATITIS C ANTIBODY - ED W/REFLEX TO HCV QUANT PCR STAT 07/20/2022 11:58 AM EST from Last 3 Months or Most Recently Relevant to Health Maintenance Results * Hepatitis C Antibody - ED (07/20/2022 11:58 AM EST) Hepatitis C Antibody Negative Negative 07/20/2022 2:31 PM EST [facility] Blood Venous blood specimen / Unknown Venipuncture / Unknown 07/20/2022 11:58 AM EST 07/20/2022 12:30 PM EST us Yessi Rosales MD LAB BLOOD ORDERABLES Final R esult [facility] [address] [place] [address] from Last 3 Months or Most Recently Relevant to Health Maintenance Insurance [facility] [place] [address] Care Teams Deburring Technician Relationship Specialty Start Date End Date Santino Carrillo MD [address] [place] [address] PCP - General 11/08/20
--- OUTSIDE RECORDS SUMMARY | 2024-12-11 11:12 | XMS_ITS | Data Portability ---
Author Organization [place] - [employer], [employer], [facility] Address [address] [place] [address] Care Team Providers Care Burnisher Name Role Phone VICTORINO GUZMAN Referring Provider Assessment Encounter Date Assessment Date Assessment LastModified by Organization Details LastModified Time 08/12/2017 08/12/2017 patient presents with evidence of acute bronchitis, will treat with antibiotic, as well as cough medicine. F/U with PCP , or as needed here, to ER if worse [email or web address] Not available 08/12/2017 18:39:24 Plan of Treatment Reminders Order Date Submit Date Provider Last Modified By Organization Details Last Modified Time Details Appointments None recorded. Lab rapid flu (A+B) 2017 018 [email or web address] In-Office Order, Internal Use Only DO Not Attach Compendium DO Not Attach Compendium, Do Not Delete/merge, [id number] 8 18:49:22 Referral None recorded. Procedures None recorded. Surgeries None recorded. Imaging None recorded. Medication Orders promethazi ne 25 mg tablet 2017 018 INTERFACE [facility] #[id number], [address] [place], [place], [phone], 8 18:49:31 Tessalon Perles 100 mg capsule 2017 018 INTERFACE [facility] #[id number], [address] [place], [place], [phone], 8 18:49:31 doxycyclin e hyclate 100 mg capsule 2017 018 INTERFACE [facility] #[id number], [address], [place], [id number], 8 18:49:31 Patient TargetsNo targets recorded. Patient Instructions Encounter Date Encounter Id Patient Instructions Last Modified By Organization Details Last Modified Time 08/12/2017 [id number] Acute Sinusitis: Care Instructions [email or web address] Not available 08/12/2017 18:49:22 bronchitis: care instructions [email or web address] Not available 08/12/2017 18:49:22 Reason for Referral None Reported. Results Created Date Observation Date Name Description Value Unit Range Abnormal Flag Note LastModifiedBy Organization Detail LastModifiedTime 08/12/19 18 08/12/2017 rapid flu (A+B) influenza type A negati ve negati ve Not Available In-Office Order Internal Use Only DO Not Attach Compendium DO Not Attach Compendium, Do Not Delete/merge, [id number] 08/12/2017 18:24:27 08/12/19 18 08/12/2017 rapid flu (A+B) infulenza type B negati ve negati ve Not Available In-Office Order Internal Use Only DO Not Attach Compendium DO Not Attach Compendium, Do Not Delete/merge, [id number] 08/12/2017 18:24:27 Result Notes None recorded. Procedures Surgical History Date Name Laterality Status Provider Name and Address Organization Details Recorded Time [facility] 08/12/2017 18:24:01 Imaging Results None recorded. Procedure Notes None recorded. Medical Equipment None Reported. Allergies Allergen ID Allergen Name Allergen Category Reaction Reaction Severity Criticality Documentation Date Start Date Code Code System Note Provider Name and Address Organization Details Recorded Time 018760 Product containin g 3-hydroxy -3-methyl glutaryl- coenzyme A reductase inhibitor (product) medicatio n Not available Not available Not available 08/12/20172017 74282 009 SNOMED Manav vogt [facility], [facility] 8 18:20:57 Medications Name Sig Start Date Stop Date Status Note LastModified by Organization Details LastModified Time metformin 500 mg tablet active Not Available Not Available Not Available carvedilol 25 mg tablet active Not Available Not Available Not Available doxycycline hyclate 100 mg capsule Take 1 capsule twice a day by oral route for 10 days. 2017 active Not Available Not Available Not Avai lable ibuprofen 800 mg tablet 08/12 completed Not Available Not Available Not Available lisinopril 20 mg tablet active Not Available Not Available Not Available Aspir-Low 81 mg tablet,delay ed release Take 1 tablet every day by oral route. 2017 active Not Available Not Available Not Avai lable Tessalon Perles 100 mg capsule Take 1 capsule 3 times a day by oral route for 15 days. 2017 active Not Available Not Available Not Avai lable promethazine 25 mg tablet Take 1 tablet 3 times a day by oral route as needed for 3 days. 2017 active Not Available Not Available Not Avai lable omeprazole 20 mg capsule,paolo yed release Take 1 capsule every day by oral route. 2017 active Not Available Not Available Not Avai lable furosemide 20 mg tablet 08/12 completed Not Available Not Available Not Available fluticasone propionate 50 mcg/actuatio n nasal spray,suspen pelon 08/12 completed Not Available Not Available Not Available amoxicillin 875 mg-potassium clavulanate 125 mg tablet 08/12 completed Not Available Not Available Not Available sildenafil (pulmonary hypertension ) 20 mg tablet active Not Available Not Available Not Available fenofibrate nanocrystall ized 145 mg tablet active Not Available Not Available Not Available azelastine 205.5 mcg (0.15 %) nasal spray 08/12 completed Not Available Not Available Not Available OneTouch Delica Lancets 33 gauge 08/12 completed Not Available Not Available Not Available Vitals Date Recorded Heart rate Body weight Oxygen saturation Oxygen saturation in Arterial blood by Pulse oximetry Body mass index (BMI) Body height Body temperature Systolic blood pressure Diastolic blood pressure Provider Name and Address Organization Details Last Updated DateTime 8 81 /min 808604 g 95 % 95 % 33.6 kg/m2 175.26 cm 98 [degF] 137 mm[Hg] 78 mm[Hg] Manav BENNETT - [facility], [facility] 8 18:21:22 Social History Question Answer Notes LastModified by Organizat ion Details LastModified Time Tobacco Smoking Status Never Smoker Jacque Hood [place], [place] - [facility], [facility] 08/12/2017 18:23:55 Alcohol Use 1-2 Per Week [email or web address] Information not available 08/12/2017 Year Quit Tobacco Use 1989 [email or web address] Information not available 08/12/2017 What Was The Date Of Your Most Recent Tobacco Screening? 08/12/2017 Information n ot available 01/20/2019 Sex: Unknown Functional Status Question Answer Note LastModified by Organization D etails LastModified Time What is your exercise level? Moderate [email or web address] Information not available 08/12/2017 Mental Status None recorded. Family History Relationship Description Onset Age of this Age Resolved Age Notes LastModified by Organization Details LastModified Time Father Congestive heart failure [email or web address] Not available 08/12 18:23:33 Father Heart disease [email or web address] Not available 08/12 18:23:33 Mother Alzheimer's disease [email or web address] Not available 08/12 18:23:33 Medical History Condition Response Diabetes N Memory Loss/Alzheimer's N Cancer (location) N High blood pressure N Other N Arthritis N Heart disease / Heart Attack N Alcohol Overuse N Emphysema/COPD N Anxiety/Stress N Sexually Transmitted Disease N Asthma N Depression N Crohn's Disease N HIV/AIDS N Seizures N Anemia N Urinary Problems N Stroke/TIA N High Cholesterol N Hepatitis N GERD/Ulcer Y Headaches/Migraines Y Parkinson's N Allergies (other than meds) N Past Encounters Encounter ID Performer Location Encounter Start Date Encounter Closed Date Diagnosis/Indication Diagnosis SNOMED-CT Code Diagnosis ICD10 Code Diagnosis Note [id number] Jose Pope MD [facility] [address] [place] [phone] 08/12/2017 17:56:01 08/12/2017 18:52:34 Acute bronchitis 05327465 J20.9 Acute bila teral otitis media 660158152 H66.93 Acute sinusitis 34670028 J01.90 Nausea 736862450 R11.0 Health Concerns Section Related Observation LastModified by Organization Detai ls LastModified Time None Recorded Concern Status LastModified by Organization Details LastModified Time None Recorded Advance Directives Directive None Recorded Payers Insurance Date Sequence Insurance Name Policy Number Policy Allan Covered Member ID Allan Member ID Guarantor Name 08/12/2017 1 [employer] (MEDICARE REPLACEMENT /ADVANTAGE - PPO) [id number] Arnold Mann [id number] Arnold Mann Notes Date Note Type Note Provider Name and Address Organization Details Recorded Time 08/12/2017 text/html Cough / ColdReported bypatient.Reason for visit:acute complaint Quality:dry / nonproductive;deep ;hacky Severity:moderate Duration:constant Onset/Timing:gradu al Aggravating factors:exercise / walking Associated Symptoms:aracelistio ramon Pope MD [address] [address], [place], [phone], [facility] - [facility], [facility] 08/13/2017 07:05:23
--- OUTSIDE RECORDS SUMMARY | 2024-12-11 11:12 | XMS_ITS | Data Portability ---
Author Organization LATANY[facility] - LORIN Miranda PICKEREL CLOSED Address [address] [facility] [address] [place] [address] Care Team Providers Care Generation Manager Name Role Phone RUBIN CHEEK Primary Care Provider Assessment Encounter Date Assessment Date Assessment LastModified by Organization Details LastModified Time 07/01/2020 07/01/2020 Pt is S/P L4-S1 PLIF 06/11/2020. Here for staple removal. Incision is well healed. Amana were removed. Pt is doing well. Tolerated procedure well. [email or web address] Not available 07/04/2020 14:09:55 07/22/2020 07/22/2020 Mr. Mann is doing very well after an L4-S1 fusion. His x-rays today look great. I gave him a printed copy of his x-rays. We plan to see him back in 2 months with repeat x-rays. I encouraged him to walk is much as possible. [email or web address] Not available 07/22/2020 15:36:34 Plan of Treatment Reminders Order Date Submit Date Provider Last Modified By Organization Details Last Modified Time Details Appointments None record ed. Lab None record ed. Referral None record ed. Procedures None record ed. Surgeries None record ed. Imaging None record ed. Medication Orders None record ed. Patient TargetsNo targets recorded. Patient InstructionsNo instructions recorded. Reason for Referral None Reported. Results Created Date Observation Date Name Description Value Unit Range Abnormal Flag Note LastModifiedBy Organization Detail LastModifiedTime 07/22/19 21 07/22/2020 XR, lumbo sacra l spine , 2 or 3 view Jim campbell [address] [facility] [place] [address] Aileen nava Name: ARNOLD BOWERSTAJKaylyn Mateo Gallagher brandy : [birth year] Patijc t Orderi ng Provid er: ADAMA Gilbert MAGALY EXAM DATE: 2020 EXAM: XR LUMBAR AP/LAT CLINIC AL INFORM ATION: Back pain. Back pain IMAGES PROVID ED: AP, latera l and coned down views of the lumbar spine. COMPAR TAMAR: None. FINDIN GS: Previo us L4-S1 tennis centre manager ior fixati on and interb kacie fusion . No compli cation . There is no hardwa re loosen ing or hardwa re fractu re. The alignm ent is normal . No parasp inal diseas e. No radiog raphic eviden ce of injury is noted. IMPRES JANET: Uncomp licate d appear ing L4-S1 fusion Interp reted By: Anival Simental MD Electr onical ly Signed By: Anival Simental MD on 2:[email or web address] [facility] [address], [place], [address], 07/28/2020 13:25:02 09/24/19 21 09/23/2020 XR, lumbo sacra l spine , 2 or [address] [place] [address] Aileen nava Name: ARNOLD nava : [birth year] 53 Aileen nava Orderi ng Provid er: ADAMA Gilbert MAGALY EXAM DATE: 2020 EXAM: XR LUMBAR AP/LAT CLINIC AL INFORM ATION: Back pain. IMAGES PROVID ED: AP, latera l and coned down views of the lumbar spine. COMPAR TAMAR: 021 FINDIN GS: Again seen is previo us L4-S1 tennis centre manager ior fixati on and interb kacie fusion . No hardwa re loosen ing or other compli cation is noted. Mild diffus e degene rative endpla te spurri ng. The psoas muscle s are define d. No radiog raphic eviden ce of injury is noted. IMPRES JANET: Uncomp licate d appear ing L4-S1 fusion Interp reted By: Anival Simental MD Electr onical ly Signed By: Anival Simental MD on 3/29/2 021 10:08 AM [email or web address] [facility] [address] [place] [address], [phone], 09/26/2020 12:54:49 04/16/2004/02/2021 XR, lumbo sacra l spine , 2 or 3 view No observ ation record ed. [email or web address] [facility] [address], [place], [address], 04/17/2021 09:24:00 12/16/19 22 12/15/2021 XR, lumbo sacra l spine , 2 or 3 view, bendi ng only [place] [address] [place] [address] Patijc t Name: ARNOLD nava : [birth year] Patijc t Orderi ng Provid er: VALE Morgan EXAM DATE: 2021 EXAM: XR LUMBAR SPINE FLEX/E XT ONLY CLINIC AL INFORM ATION: Back pain. IMAGES PROVID ED: Latera l views of the lumbar spine in flexio n and extens ion. COMPAR TAMAR: None. FINDIN GS AND IMPRES JANET: Spinal fusion is noted at L4-S1 level. No abnorm al moveme nt is seen in flexio n or extens ion. Other levels are normal . No instab ility is seen. Interp reted By: Candida Smith MD Electr onical ly Signed By: Candida Smith MD on 022 12:52 PM [email or web address] [address] [place] [address], [phone], 01/12/2022 10:02:51 12/17/19 22 11/26/2021 MRI, hip, w/o contr ast No observ ation record ed. BARCODE Not Available 2021 09:44:10 12/26/19 22 12/25/2021 MRI, lumba r spine , w/wo contr ast [place] [address] [place] [address] Aileen t Name: ARNOLD nava : [birth year] Patijc t Orderi ng Provid er: VALE Morgan EXAM DATE: 2021 EXAM: MR LUMBAR SPINE W/WO CONTRA ST HISTOR Y: 71-yea r-old male with low back pain radiat ing into the left hip and leg. The patien t has had prior lumbar surger y. COMPAR TAMAR: CT scan of the same date Diazep am 10 mg p.o. was given for sedati on withou t compli cation . A baseli ne serum creati nine with eGFR was obtain ed prior to inject ion of contra st medium due to the patien ts risk factor s for DEANGELO. Calcul ated eGFR at time of exam was POC 60 FINDIN GS: The patien t is status post discec salty and interb kacie graft at L4-L5, and anneliese ctomy and tennis centre manager ior fusion from L4 throug h S1. There is parama gnetic artifa ct from the pedicl e screws and tennis centre manager ior fusion hardwa re. The lumbar spine is normal in alignm ent. There is no sublux ation. There is no eviden ce of fractu re. There is mild anteri or margin al osteop hytic spurri ng. No pathol ogic lesion is identi fied in the lumbar spine. The conus medull etienne is normal in appear ance at the L1-L2 level. T12-L1 : This interv ertebr al disc is essent ially normal in appear ance. L1-L2: There is a broad- based disc bulge and mild endpla te spurri ng. There is mild centra l canal stenos is. There is minima l neural forami nal stenos is. L2-L3: There is a broad- based disc protru janet, mild endpla te spurri ng and mild facet arthro kaye. There is mild centra l canal stenos is. There is mild bilate ral neural forami nal stenos is. L3-L4: There is a broad- based disc protru janet and modera te endpla te spurri ng. There is modera te facet arthro kaye. There is modera te/sev ere centra l canal stenos is. There is modera te left and mild right neural forami nal stenos is. L4-L5: There is prior fusion with residu al endpla te spurri ng. There is no centra l canal stenos is. There is mild bilate ral neural forami nal stenos is. L5-S1: There is prior fusion with residu al endpla te spurri ng. There is no centra l canal stenos is. There is modera te right neural forami nal stenos is. After intrav enous admini strati on of [address] ([facility] [address]- 0325-0 2), there is no abnorm al enhanc ement in the lumbar spine. IMPRES JANET: 1. The patien t is status post fusion from L4 throug h S1. 2. There is modera te/sev ere centra l canal narrow ing at L3-L4, and mild centra l canal narrow ing at L1-L2 and L2-L3. 3. There is modera te left neural forami nal narrow ing at L3-L4 and modera te right neural forami nal narrow ing at L5-S1. Interp reted By: Vika gonzalez MD Electr onical ly Signed By: Vika gonzalez MD on 022 3:47 PM [facility] [address], [phone], 01/12/2022 10:02:53 12/26/19 22 12/25/2021 CT, lumba r spine , w/[place] [address] Aileen nava Name: ARNOLD Galindo Aileen nava : [birth year] Patijc t Orderi ng Provid er: VALE Morgan EXAM DATE: 2021 EXAM: CT LUMBAR WITHOU T CONTRA ST HISTOR Y: 71-yea r-old male with low back pain and left hip pain. The patien t has had prior lumbar fusion . COMPAR TAMAR: MRI of the same date. TECHNI QUE: 1 mm direct axial slices were obtain ed throug h the lumbar spine. Comput er-gen erated axial, sagitt al, and barroso l recons tructi ons are also provid ed for interp retati on. FINDIN GS: The patien t is status post discec salty and interb kacie graft at L4-L5, and anneliese ctomy and tennis centre manager ior fusion from L4 throug h S1. There is beam harden ing artifa ct from the pedicl e screws and tennis centre manager ior fusion hardwa re. There is no eviden ce of loosen ing of the hardwa re. There is mild diffus e levocu rvatur e of the lumbar spine. There is no sublux ation. There is no fractu re. There is mild anteri or margin al osteop hytic spurri ng. No pathol ogic lesion is identi fied in the lumbar spine. T12-L1 : This interv ertebr al disc is essent ially normal in appear ance. L1-L2: There is a broad- based disc bulge and mild endpla te spurri ng. There is mild centra l canal stenos is. There is minima l neural forami nal stenos is. L2-L3: There is a broad- based disc protru janet, mild endpla te spurri ng and mild facet arthro kaye. There is mild centra l canal stenos is. There is mild bilate ral neural forami nal stenos is. L3-L4: There is a broad- based disc protru janet and modera te endpla te spurri ng. There is modera te facet arthro kaye. There is modera te/sev ere centra l canal stenos is. There is modera te bilate ral neural forami nal stenos is. L4-L5: There is prior fusion with residu al endpla te spurri ng. There is no centra l canal stenos is. There is mild bilate ral neural forami nal stenos is. L5-S1: There is prior fusion with residu al endpla te spurri ng. There is no centra l canal stenos is. There is modera te right neural forami nal stenos is. There is massiv e dilati on of the urinar y bladde r. IMPRES JANET: 1. The patien t is status post fusion from L4 throug h S1. There is no eviden ce of loosen ing of the hardwa re. 2. There is modera te/sev ere centra l canal narrow ing at L3-L4, and mild centra l canal narrow ing at L1-L2 and L2-L3. 3. There is modera te bilate ral neural forami nal narrow ing at L3-L4 and modera te right neural forami nal narrow ing at L5-S1. Interp reted By: Vika gonzalez MD Electr on ly Signed By: Vika gonzalez MD on 022 3:50 PM [facility] [address], [phone], 01/12/2022 10:02:52 Result Notes Documentation Provider Name and Address Organization Details Recorded Time Xr, Lumbosacral Spine, 2 Or 3 View : [address] [address] Patient Name: ARNOLD MANN Patient : 1950 Patient Ordering Provider: ALMA ZHOU EXAM DATE: 07/22/2020 EXAM: XR LUMBAR AP/LAT CLINICAL INFORMATION: Back pain. Back pain IMAGES PROVIDED: AP, lateral and coned down views of the lumbar spine. COMPARISON: None. FINDINGS: Previous L4-S1 posterior fixation and interbody fusion. No complication. There is no hardware loosening or hardware fracture. The alignment is normal. No paraspinal disease. No radiographic evidence of injury is noted. IMPRESSION: Uncomplicated appearing L4-S1 fusion Interpreted By: Anival Simental MD ZHOU MD [address] [place] [address], [phone], [facility] 07/28/2020 13:25:02 Xr, Lumbosacral Spine, 2 Or 3 View : [address] [address] Patient Name: ARNOLD MANN Patient : 1950 Patient Ordering Provider: ALMA ZHOU EXAM DATE: 09/23/2020 EXAM: XR LUMBAR AP/LAT CLINICAL INFORMATION: Back pain. IMAGES PROVIDED: AP, lateral and coned down views of the lumbar spine. COMPARISON: 07/23/2020 FINDINGS: Again seen is previous L4-S1 posterior fixation and interbody fusion. No hardware loosening or other complication is noted. Mild diffuse degenerative endplate spurring. The psoas muscles are defined. No radiographic evidence of injury is noted. IMPRESSION: Uncomplicated appearing L4-S1 fusion Interpreted By: Anival Simental MD ZHOU MD [address] [place] [address], [phone], [facility] 09/26/2020 12:54:49 Xr, Lumbosacral Spine, 2 Or 3 View, Bending Only : [address] [address] Patient Name: ARNOLD MANN Patient : 1950 Patient Ordering Provider: VALE CHEN EXAM DATE: 12/15/2021 EXAM: XR LUMBAR SPINE FLEX/EXT ONLY CLINICAL INFORMATION: Back pain. IMAGES PROVIDED: Lateral views of the lumbar spine in flexion and extension. COMPARISON: None. FINDINGS AND IMPRESSION: Spinal fusion is noted at L4-S1 level. No abnormal movement is seen in flexion or extension. Other levels are normal. No instability is seen. Interpreted By: Audie Smith MD CHEN PA-C [address] [place] [address], [phone], [facility] 01/12/2022 10:02:51 Mri, Lumbar Spine, W/wo Contrast : [address] [address] Patient Name: ARNOLD MANN Patient : 1950 Patient Ordering Provider: VALE CHEN EXAM DATE: 12/25/2021 EXAM: MR LUMBAR SPINE W/WO CONTRAST HISTORY: 71-year-old male with low back pain radiating into the left hip and leg. The patient has had prior lumbar surgery. COMPARISON: CT scan of the same date Diazepam 10 mg p.o. was given for sedation without complication. A baseline serum creatinine with eGFR was obtained prior to injection of contrast medium due to the patients risk factors for DEANGELO. Calculated eGFR at time of exam was POC 60 FINDINGS: The patient is status post discectomy and interbody graft at L4-L5, and laminectomy and posterior fusion from L4 through S1. There is paramagnetic artifact from the pedicle screws and posterior fusion hardware. The lumbar spine is normal in alignment. There is no subluxation. There is no evidence of fracture. There is mild anterior marginal osteophytic spurring. No pathologic lesion is identified in the lumbar spine. The conus medullaris is normal in appearance at the L1-L2 level. T12-L1: This intervertebral disc is essentially normal in appearance. L1-L2: There is a broad-based disc bulge and mild endplate spurring. There is mild central canal stenosis. There is minimal neural foraminal stenosis. L2-L3: There is a broad-based disc protrusion, mild endplate spurring and mild facet arthropathy. There is mild central canal stenosis. There is mild bilateral neural foraminal stenosis. L3-L4: There is a broad-based disc protrusion and moderate endplate spurring. There is moderate facet arthropathy. There is moderate/severe central canal stenosis. There is moderate left and mild right neural foraminal stenosis. L4-L5: There is prior fusion with residual endplate spurring. There is no central canal stenosis. There is mild bilateral neural foraminal stenosis. L5-S1: There is prior fusion with residual endplate spurring. There is no central canal stenosis. There is moderate right neural foraminal stenosis. After intravenous administration of 10 mL Gadavist ([facility] [address]-70), there is no abnormal enhancement in the lumbar spine. IMPRESSION: 1. The patient is status post fusion from L4 through S1. 2. There is moderate/severe central canal narrowing at L3-L4, and mild central canal narrowing at L1-L2 and L2-L3. 3. There is moderate left neural foraminal narrowing at L3-L4 and moderate right neural foraminal narrowing at L5-S1. Interpreted By: Eric Ann MD CHEN PA-C [address] [place] [address], [phone], [facility] 01/12/2022 10:02:53 Ct, Lumbar Spine, W/o Contrast : [facility] [address] [place] [address] Patient Name: ARNOLD MANN Patient : 1950 Patient Ordering Provider: VALE CHEN EXAM DATE: 12/25/2021 EXAM: CT LUMBAR WITHOUT CONTRAST HISTORY: 71-year-old male with low back pain and left hip pain. The patient has had prior lumbar fusion. COMPARISON: MRI of the same date. TECHNIQUE: 1 mm direct axial slices were obtained through the lumbar spine. Computer-generated axial, sagittal, and coronal reconstructions are also provided for interpretation. FINDINGS: The patient is status post discectomy and interbody graft at L4-L5, and laminectomy and posterior fusion from L4 through S1. There is beam hardening artifact from the pedicle screws and posterior fusion hardware. There is no evidence of loosening of the hardware. There is mild diffuse levocurvature of the lumbar spine. There is no subluxation. There is no fracture. There is mild anterior marginal osteophytic spurring. No pathologic lesion is identified in the lumbar spine. T12-L1: This intervertebral disc is essentially normal in appearance. L1-L2: There is a broad-based disc bulge and mild endplate spurring. There is mild central canal stenosis. There is minimal neural foraminal stenosis. L2-L3: There is a broad-based disc protrusion, mild endplate spurring and mild facet arthropathy. There is mild central canal stenosis. There is mild bilateral neural foraminal stenosis. L3-L4: There is a broad-based disc protrusion and moderate endplate spurring. There is moderate facet arthropathy. There is moderate/severe central canal stenosis. There is moderate bilateral neural foraminal stenosis. L4-L5: There is prior fusion with residual endplate spurring. There is no central canal stenosis. There is mild bilateral neural foraminal stenosis. L5-S1: There is prior fusion with residual endplate spurring. There is no central canal stenosis. There is moderate right neural foraminal stenosis. There is massive dilation of the urinary bladder. IMPRESSION: 1. The patient is status post fusion from L4 through S1. There is no evidence of loosening of the hardware. 2. There is moderate/severe central canal narrowing at L3-L4, and mild central canal narrowing at L1-L2 and L2-L3. 3. There is moderate bilateral neural foraminal narrowing at L3-L4 and moderate right neural foraminal narrowing at L5-S1. Interpreted By: Eric Ann MD CHEN PA-C [address] [place], [phone], [facility] 01/12/2022 10:02:52 Problems Name Problem SNOMED Code Status Onset Date Resolution Date Notes Provider Name and Address Organization Details Recorded Time Lumbar radiculopathy 817343690 Active 2021 VALE CHEN PA-C [address] [place], [phone], [facility] 2 11:14:32 Problem Notes None recorded. Procedures Surgical History Date Name Laterality Status Provider Name and Address Organization Details Recorded Time 0 POSTERIOR LUMBAR INTERBODY FUSION, ADDITIONAL INTERSPACE (SURG) completed Jackie Duran [facility] 06/13/2020 11:08:07 Back Surgery completed [facility] 05/16/2020 10:13:31 Cabg vein three completed [facility] 05/16/2020 10:13:39 Imaging Results None recorded. Procedure Notes None recorded. Medical Equipment None Reported. Allergies Allergen ID Allergen Name Allergen Category Reaction Reaction Severity Criticality Documentation Date Start Date Code Code System Note Provider Name and Address Organization Details Recorded Time 088580 Product containin g 3-hydroxy -3-methyl glutaryl- coenzyme A reductase inhibitor (product) medicatio n myalgias (muscle pain) Not available Not available 05/22/20162008 42217 009 SNOMED React ion: MYALG IA; Comme nt: Creat ed By: Nathaniel Alvarez eated Date: 2008 2:23: 11 PM; Not Available [facility] 05:36:15 Medications Name Sig Start Date Stop Date Status Note LastModified by Organization Details LastModified Time cyclobenz aprine 10 mg tablet Take 1 tablet 3 times a day by oral route as needed. 2019 active Not Available Not Available Not Avai lable furosemid e 40 mg tablet active Not Available Not Available Not Available metformin 500 mg tablet Two times a day active Not Available Not Available No t Available carvedilo l 12.5 mg tablet Two times a day active Frequenc y: bid;Alt Frequenc y: as direct.; Medicati on Descript ion: carvedil ol; Dosage:1 ; Route:or al; refills: 0; Quantity :60 tablet Not Available Not Available Not Available Multiple Vitamin capsule Daily active Frequenc y: daily;Me dication Descript ion: multivit thurston; Dosage:1 ; Route:or al; refills: 3; Quantity :100 capsule Not Available Not Available Not Available Medrol (Des) 4 mg tablets in a dose pack Take 1 tablet by oral route as directed . 2021 active Not Available Not Available Not Avai lable Accu-Chek Softclix Lancets active Not Available Not Available Not Available bisoprolo l fumarate 5 mg tablet active Not Available Not Available Not Available Lasix 20 mg tablet Daily 2011 active Frequenc y: daily;Al t Frequenc y: as direct.; Medicati on Descript ion: furosemi de; Dosage:1 ; Route:or al; refills: PRN 1 yr; Quantity :30 tablet Not Available Not Available Not Available cephalexi n 500 mg capsule active Not Available Not Available Not Available gabapenti n 300 mg capsule Take 1 capsule 3 times a day by oral route. 2022 active Not Available Not Available Not Avai lable aspirin 81 mg tablet Daily active Duration : 30 days;Ramesh quency: daily;Al t Frequenc y: as direct.; Medicati on Descript ion: aspirin; Dosage:1 ; refills: 0; Quantity :30 Not Available Not Available Not Available mupirocin 2 % topical ointment active Not Available Not Available Not Available oxycodone -acetamin ophen 7.5 mg-325 mg tablet Take 1 tablet every 6 hours by oral route as needed. active Not Available Not Available No t Available losartan 100 mg tablet active Not Available Not Available Not Available doxycycli ne hyclate 100 mg tablet active Not Available Not Available Not Available amoxicill in 875 mg-potass ium clavulana te 125 mg tablet 05/16 completed Not Available Not Available Not Available Prilosec OTC 20 mg tablet,de layed release Daily active Frequenc y: daily;Me dication Descript ion: omeprazo le; Dosage:1 ; Route:or al; refills: 0 Not Available Not Available Not Available sildenafi l (pulmonar y hypertens ion) 20 mg tablet active Not Available Not Available No t Available Metamucil Two times a day active Frequenc y: bid;Alt Frequenc y: as direct.; Medicati on Descript ion: psyllium ; Dosage:1 ; Route:or al; refills: 0; Quantity :60 Not Available Not Available Not Available Vitamin B-Complex Daily active Frequenc y: daily;Me dication Descript ion: multivit thurston; Dosage:1 ; Route:or al; refills: 0 Not Available Not Available Not Available fenofibra te nanocryst allized 145 mg tablet active Not Available Not Available Not Available Fish Oil 300 mg-1,000 mg capsule,d elayed release Daily active Frequenc y: daily;Al t Frequenc y: as direct.; Medicati on Descript ion: omega-3 polyunsa turated fatty acids; Dosage:1 ; Route:or al; refills: 0; Quantity :100 capsule Not Available Not Available Not Available Accu-Chek Florence Plus test strips active Not Available Not Available Not Available Repatha SureClick 140 mg/mL subcutane ous pen injector active Not Available Not Available Not Available Ozempic 0.25 mg or 0.5 mg (2 mg/1.5 mL) subcutane ous pen injector active Not Available Not Available Not Available Fluad 2019- 65yr up(PF)45 mcg(15 mcgx3)/0. 5 mL intramusc ular syringe active Not Available Not Available Not Available Vitals Date Recorded Body height Body mass index (BMI) Body weight Systolic blood pressure Diastolic blood pressure Provider Name and Address Organization Details Last Updated DateTime 07/22/2020 175.26 cm 32.5 kg/m2 31124.32 g 126 mm[Hg] 80 mm[Hg] Joy Luke [facility] 1 15:10:17 Date Recorded Body height Body mass index (BMI) Body weight Heart rate Systolic blood pressure Diastolic blood pressure Provider Name and Address Organization Details Last Updated DateTime 1 175.26 cm 32 kg/m2 83877.5 4 g 80 /min 124 mm[Hg] 67 mm[Hg] Laurie Moffett [facility] 1 11:22:12 Date Recorded Body height Body mass index (BMI) Body weight Systolic blood pressure Diastolic blood pressure Provider Name and Address Organization Details Last Updated DateTime 12/15/2021 175.26 cm 32 kg/m2 04201.54 g 140 mm[Hg] 80 mm[Hg] [facility] 2 10:31:13 Date Recorded Body height Body mass index (BMI) Body weight Systolic blood pressure Diastolic blood pressure Provider Name and Address Organization Details Last Updated DateTime 01/05/2022 175.26 cm 32 kg/m2 57387.54 g 132 mm[Hg] 82 mm[Hg] [facility] 2 11:10:42 Social History None recorded. Functional Status None recorded. Mental Status None recorded. Family History Relationship Description Onset Age of this Age Resolved Age Notes LastModified by Organization Details LastModified Time Unspecified Relation Diabetes mellitus [email or web address] Not available 05/16 10:12:45 Unspecified Relation Hypertensive disorder [email or web address] Not available 05/16 10:12:51 Unspecified Relation Myocardial infarction [email or web address] Not available 04/28 10:12:56 Medical History Condition Response Arthritis Y High Cholesterol Y Diabetes Y Sleep Apnea Y Hypertension Y Past Encounters Encounter ID Performer Location Encounter Start Date Encounter Closed Date Diagnosis/Indication Diagnosis SNOMED-CT Code Diagnosis ICD10 Code Diagnosis Note [id number] ALMA ZHOU MD [facility]UROSURG [facility] [address] [place] [address] 05/16/2020 08:58:12 05/20/2020 10:11:58 Lumbar radiculopathy [id number] M54.16 Time spent reviewing images, discussing the diagnosis and coordinati ng care: 30min [id number] ALMA ZHOU MD SURGERY SCHEDULE [address] [place] [address] 06/14/2020 08:47:34 06/17/2020 12:02:19 [id number] ALMA ZHOU MD NEUROSURG [facility] [address] [place] [address] 07/01/2020 12:36:17 07/02/2020 09:24:40 [id number] ALMA ZHOU MD NEUROSURG ЕКАТЕРИНА [facility] [address] [place] [address] 07/22/2020 14:40:59 07/23/2020 13:15:06 Postoperative care [id number] Z48.89 [id number] VALE CHEN PA-C NEUROSURG ЕКАТЕРИНА [facility] [address] [place] [address] 09/23/2020 10:37:49 09/24/2020 16:13:41 Postoperative care [id number] Z48.89 69-year-ol d male status post L4-S1 decompress ion fusion May [address] Zhou. X-rays reviewed show stable placement hardware without evidence of loosening. I've given him a copy of these. We are pleased with his progress thus far. We have lifted her postoperat aleja restrictio ns. We discussed using good body mechanics. We discussed using his LSO when doing strenuous activity. He may follow up with us as needed moving forward. He understand s that should he have worsening back symptoms and contact our office. pt seen by myself and dr zhou [id number] VALE CHEN PA-C NEUROSURG ЕКАТЕРИНА [facility] [address] [place] [address] 12/15/2021 10:01:01 12/15/2021 14:22:17 Lumbar radiculopathy [id number] M54.16 71-year-ol d male with history of an L4-S1 PLIF the Dr. Zhou May 2020 with worsening left lumbar radiculopa thy. Concerned that the patient's leg pain may be coming from the lumbar spine rather than the hip. The left Hip report shows mild interstiti al hamstring tears, But the patient's pain seems to radiate from the lumbar spine, gluteal area to the anterior thigh and knee, which is not consistent with hamstring pain. I would like to workup the patient's Lumbar spine with an MRI, CT scan and standing flexion-ex tension x-rays. We'll also place this patient on a steroid taper to help with symptoms. He understand s to check his blood sugars and monitor closely, as the steroid can increase his blood sugar. We will also start the patient on gabapentin 300 mg, starting taking 1 tablet at night and titrating to 3 times daily as needed. We will have the patient back after imaging is complete to discuss any recommenda tions in terms of injections versus surgery. [id number] FLAQUITO ALLEN-Kenan NEUROSURG [facility] [address] [place] [address] 01/05/2022 10:43:05 01/05/2022 11:39:18 Lumbar radiculopathy [id number] M54.16 Patient is a 71-year-ol d male being seen today as a follow-up for discussion of lumbar radiculopa thy. Previous L4-S1 fusion on 06/11/[address] Zhou. Patient presents today with new imaging. Patient did well after the surgery until last November. Started having recurrence of pain this time in the buttock on the left and into the anterior left thigh and leg into the ankle. Has similar symptoms on the right but not as severe. He has tried over-the-c ounter medication , gabapentin , steroid packs. The gabapentin is the only medication that is given him any relief. He tried physical therapy which benefited him for short time. Has not done any recent pain management . Reviewed case and imaging with Dr. Zhou. 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 We do not think it is anything to allison into emergently . He would like to go back to and receive an L3-4 epidural injection. We do think this could benefit him greatly. He would like to hold off on surgery for as long as possible. We will see him back in 5 to 6 months for recheck. In the meantime he is applying for new jobs and we did agree to give him a letter stating that we have cleared him for what ever position he would like to take at this time. He knows to call with any questions in the meantime. He is happy with this plan. Patient seen by myself and Dr. Zhou today Lumbar spine MRI with and without contrast 12/25/2021, CT lumbar spine without contrast 12/25/2021, both at [facility]. Also flexion-ex tension lumbar x-rays 12/15/2021 at the [facility]. 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 stenosis on the left at this level Health Concerns Section Related Observation LastModified by Organization Detai ls LastModified Time None Recorded Concern Status LastModified by Organization Details LastModified Time None Recorded Advance Directives Directive None Recorded Payers Insurance Date Sequence Insurance Name Policy Number Policy Allan Covered Member ID Allan Member ID Guarantor Name 01/02/2022 1 [employer] (MEDICARE REPLACEMENT/A DVANTAGE - PPO) Arnold Mann [id number] Arnold Mann Notes Date Note Type Note Provider Name and Address Organization Details Recorded Time 07/22/2020 text/html Mr. Mann is a 69-year-old gentleman status post L4-S1 fusion performed on June 11, 2020. He had some left hip and leg pain with driving down to his appointment today, but otherwise is much better. He is very happy with his result thus far. He presents today for his first postoperative visit with x-rays. ALMA ZHOU MD [address] [place] [address], [phone], [facility] 07/22/2020 15:36:44 09/23/2020 text/html 69-year-old male status post L4-S1 decompression and fusion by Dr. Zhou June 11, 2020 here for postoperative follow-up. Patient states thatHe's been doing well since surgery. He has a little bit of lower back pain intermittently but overall feels that he is progressing. He is pleased with this result. He had x-rays prior to this appointment. VALE CHEN PA-C [address] [place] [address], [phone], [facility] 09/23/2020 11:42:41 12/15/2021 text/html 71-year-old male with history of a L4-S1 PLIF Dr. Zhou May 2020 here for evaluation of his low back and left leg pain.Patient states that he did very well since his surgery up until about December of last year. He started to have low back and left buttock pain, left groin pain left thigh pain. It is a burning sharp shooting pain. He has numbness and tingling in the leg. It feels electric. The pain can radiate from 5 to an 8 out of 10. Pain is essentially constant. Standing and walking makes it worse. Lying down makes it better. He has worked with physical therapy for Several months with some initial improvement but now has become refractory. The patient had an MRI of his left hip that showed mild interstitial hamstring tears. He has no updated lumbar imaging. He has not taken much in terms of medications. VALE CHEN PA-C [address] [place], [address], [facility] 12/15/2021 11:17:25 01/05/2022 text/html Patient is a 71-year-old male being seen today as a follow-up for discussion of lumbar radiculopathy. Previous L4-S1 fusion on 06/11/[address] Zhou. Patient presents today with new imaging. Patient did well after the surgery until last November. Started having recurrence of pain this time in the buttock on the left and into the anterior left thigh and leg into the ankle. Has similar symptoms on the right but not as severe. He has tried oklo-luo-upvifyw medication, gabapentin, steroid packs. The gabapentin is the only medication that is given him any relief. He tried physical therapy which benefited him for short time. Pain then returned shortly thereafter. He does exercise daily. Has not done any recent pain management. Has not had any epidural injections since before the previous surgery. Presents today with new imaging. Lumbar spine MRI with and without contrast 12/25/2021, CT lumbar spine without contrast 12/25/2021, both at [facility]. Also flexion-extension lumbar x-rays 12/15/2021 at the [facility]. FLAQUITO MALONE PA-C [address] [place], [phone], [facility] 01/05/2022 11:37:07
--- OUTSIDE RECORDS SUMMARY | 2024-12-11 11:12 | XMS_ITS | Encounter Summary ---
Author Organization [facility] Address [address] [place] [address] Care Team Providers Care International Specialist Name Role Phone Santino Carrillo MD Primary Care Provider [phone] Reason for Referral * Consultation (Routine) - Closed Specialty Diagnoses / Procedures Referred By Contac t Referred To Contact Nephrology Diagnoses Chronic kidney disease (CKD) stage G3b/A1, moderately decreased glomerular filtration rate (GFR) between 30-44 mL/min/1.73 square meter and albuminuria creatinine ratio less than 30 mg/g ([facility]) Tawana Ramos, LATHE SET UP OPERATOR [address] [address] Phone: tel: fax: [facility] [address] [facility] [address], [place] [address] Phone: tel: Referral ID Status Reason Start Date Expiration Date V isits Requested Visits Authorized [id number] Closed Specialty Services Required 10/05/2023 04/05/2025 1 1 Encounter Details Date Type Department Care Team (Late st Contact Info) Description 10/05/2023 Community [facility] [address] [place] [address] Tawana Ramos, LATHE SET UP OPERATOR [address] [facility] [address] [place] [address] Chronic kidney disease (CKD) stage G3b/A1, moderately decreased glomerular filtration rate (GFR) between 30-44 mL/min/1.73 square meter and albuminuria creatinine ratio less than 30 mg/g (CMS/HCC) (Primary Dx) Social History Tobacco Use Types [...] drink first t cordell in the morning (EYE-GIFT OFFICER) to steady your nerves or to get [...] Description 10/12/2025 10:40 AM EDT Office Visit [facility] [address] [place] [address] Andres Dye MD [address] [place] [phone] Scheduled Referrals Name Type Priority Associated Diagnoses Orde r Schedule Ambulatory referral to Nephrology Outpatient Referral Routine Chronic kidney disease (CKD) stage G3b/A1, moderately decreased glomerular filtration rate (GFR) between 30-44 mL/min/1.73 square meter and albuminuria creatinine ratio less than 30 mg/g (CMS/HCC) Ordered: 10/05/2023 documented as of this encounter Visit Diagnoses Diagnosis Chronic kidney disease (CKD) stage G3b/A1, moderately decreased glomerular filtration rate (GFR) between 30-44 mL/min/1.73 square meter and albuminuria creatinine ratio less than 30 mg/g ([facility])- Primary documented in this encounter Additional Health Concerns Assessment Noted Time A fall risk assessment has been complete d for the patient 07/20/2022 9:55 AM EST documented as of this encounter Care Teams International Specialist Relationship Specialty Start Date End Date Santino Carrillo MD [address] [place] [address] PCP - General 11/08/20 documented as of this encounter
== END 2024-12-11 23:59 | disposition home or self-care (01) ==
PROVIDERS: PCP Internal Medicine Adolescent Medicine; Visit Provider Nurse Practitioner Family
DX: M25.78 Osteophyte, vertebrae (principal); M54.50 Low back pain, unspecified; G89.29 Other chronic pain; Z98.890 Other specified postprocedural states
CPT/HCPCS: 72084